=== PATIENT | female | born 1980 | race African-American/Black ===

== ENCOUNTER 2016-09-05 18:23 | Emergency (ER) | payer MEDICAID ==
[~2016-09-05] VITALS: Ht 167.6 cm; Wt 113.4 kg
[~2016-09-05 18:23] MED LIST: ACETAMINOPHEN-1 EAC1 ORAL; ALBUTEROL SULF8.5 GM INH; ALUM-MAG HYDRO360 ML PO; AMLODIPINE BESY10 MG PO; AMOXICILLIN500 MG ORAL; AMOXICILLIN500 MG PO; BACTRIM DS TAB1 EAC1 ORAL; BENAZEPRIL HCL40 MG PO; CIPRO500 MG PO; CIPROFLOXACIN500 M2 ORAL; CIPROFLOXACIN750 MG ORAL; CLOTRIMAZOLE15 GM TOP; CYCLOBENZAPRINE10 MG ORAL; DAILY VITAMIN1 EAC2 ORAL; DIFLUCAN150 MG PO; FLAGYL500 MG ORAL; FLAGYL500 MG PO; FLUCONAZOLE100 MG ORAL; HYDROCHLOROTHIA50 MG PO; HYDROCODON-ACE1 EA13 ORAL; HYDROCODON-ACE1 EA15 ORAL; IBUPROFEN600 MG ORAL; IBUPROFEN800 MG ORAL; KEFLEX500 MG ORAL; LORATADINE10 M1 PO; METFORMIN HCL500 MG PO; METROGEL-VAGINA70 G1 VG; NAPROSYN500 M1 ORAL; NITROFURANTOIN100 M2 ORAL; NKM; NORCO 5-325 TA1 EACH ORAL; PHENAZOPYRIDIN200 MG ORAL; PHENERGAN6.25 MG/5 PO; POTASSIUM CHLO10 MEQ PO; SIMVASTATIN20 MG PO; TRAMADOL HCL50 MG ORAL
[2016-09-05 18:34] VITALS: BP 129/90
--- NOTE | 2016-09-05 18:57 | Emergency Room Report ---
History of Present Illness General Chief Complaint: Pain Present Illness HPI 36-year-old female presents to emergency Department complaining of vaginal pain/ discomfort in addition to itching.x 1 week. Patient denies discharge, she reports mild external burning with urination. She also reports urinary frequency. She denies nausea, vomiting, fevers, chills or abdominal pain. Patient reports itchy rash on the bilateral wrists x2 weeks, and nasal congestion, rhinorrhea and cough x4 days. Patient has a history of diabetes and high cholesterol, and HTN. Denies CP, Palpitations, LOC, AMS, dizziness, Changes in Vision, Sensation, paresthesias, or a sudden severe headache. Allergies: Coded Allergies: No Known Allergies (Verified Allergy, Unknown, 04/10/07) Patient History Past Medical History: see triage record Past Surgical History: none Pertinent Family History: none Now: No Immunizations: UTD Reviewed Nursing Documentation: PMH: Agreed, PSxH: Agreed Nursing Documentation-PMH Hx Hypertension: Yes Hx Diabetes: Yes Review of Systems All Other Systems: negative except mentioned in HPI Physical Exam Vital Signs Date Time Temp Pulse Resp B/P Pulse Ox O2 Delivery O2 Flow Rate FiO2 09/05/16 18:27 98.1 95 20 133/90 96 Room Air Sp02 EP Interpretation: reviewed, normal General Appearance: no apparent distress, alert, GCS 15, non-toxic Head: normocephalic, atraumatic Eyes: bilateral eye PERRL, bilateral eye normal inspection ENT: hearing grossly normal, normal pharynx, no angioedema, normal voice, TMs + canals normal, moist mucus membranes, nasal congestion Neck: full range of motion, supple/symm/no masses Respiratory: chest non-tender, lungs clear, normal breath sounds, no rhonchi, no respiratory distress, no retraction, no accessory muscle use, no wheezing, speaking full sentences Cardiovascular #1: regular rate, rhythm, no edema Cardiovascular #2: 2+ radial (R), 2+ radial (L) Gastrointestinal: normal bowel sounds, non tender, soft, no guarding, no rebound Rectal: deferred Genitourinary: normal inspection, no CVA tenderness, adnexa normal, bladder normal, other - external vaginal irritation noted. White vaginal d/c noted. Musculoskeletal: back normal, gait/station normal, normal range of motion, non- tender, no calf tenderness Neurologic: alert, oriented x3, responsive, motor strength/tone normal, sensory intact, speech normal Psychiatric: judgement/insight normal, memory normal, mood/affect normal, no suicidal/homicidal ideation Skin: normal color, warm/dry, well hydrated, rash - linear lesions noted on the wrists bilaterally with obvious excoritations consistent with possible scabies. Lymphatic: no adenopathy Medical Decision Making PA Attestation Dr. kinney is my supervising Physician whom patient management has been discussed with. Diagnostic Impression: Primary Impression: Trichomonal vaginitis Additional Impression: UTI (urinary tract infection) Qualified Codes: N30.01 - Acute cystitis with hematuria ER Course Pt. presents to the ED c/o: 1) vaginal irritation/ discomfort that is burning in nature localized externally times one week. 2) itchy rash on the bilateral wrists x2 weeks. 3) cough, nasal congestion, rhinorrhea x4 days. Ddx considered but are not limited to UTi , Pyelo, STI, Stone, Cystitis, vaginal laceration, vaginitis, URI, pneumonia, bronchitis, , urticaria, eczema, dermatitis, infestation. Vital signs: are WNL, pt. is afebrile H& PE are most consistent with: Scabies and of the bilateral wrists, URI most likely viral in etiology, vaginitis, suspicious for possible UTI will r/o with UA. ORDERS: - UA labs are attached : bacteria present, Urinary Trichomonads, and hematuria consistent with UTI. ED INTERVENTIONS: None required at this time. DISCHARGE: At this time pt. is stable for d/c to home. Will provide printed patient care instructions, and any necessary prescriptions. Care plan and follow up instructions have been discussed with the patient prior to discharge. Labs Test 09/05/16 18:30 Urine Color Pale yellow Urine Appearance Slightly cloudy Urine pH 6 (4.5-8.0) Urine Specific [place] 1.005 (1.005-1.035) Urine Protein 2+ (NEGATIVE) Urine Glucose (UA) 4+ (NEGATIVE) Urine Ketones Negative (NEGATIVE) Urine Occult Blood 2+ (NEGATIVE) Urine Nitrite Negative (NEGATIVE) Urine Bilirubin Negative (NEGATIVE) Urine Urobilinogen Normal MG/DL (0.0-1.0) Urine Leukocyte Esterase 3+ (NEGATIVE) Urine RBC 2-4 /HPF (0 - 2) Urine WBC 20-30 /HPF (0 - 2) Urine Squamous Epithelial Cells Few /LPF (NONE/OCC) Urine Bacteria Few /HPF (NONE) Urine Trichomonas Occasional /HPF (NONE) Last Vital Signs Date Time Temp Pulse Resp B/P Pulse Ox O2 Delivery O2 Flow Rate FiO2 09/05/16 18:34 98.1 78 20 129/90 96 Room Air Disposition: HOME, SELF-CARE Condition: Stable Scripts Permethrin* (ELIMITE*) 60 Gm Cream..g. 1 APPLIC TOPIC ONCE, #60 GM 0 Refills Apply cream from head to toe; leave on for 8-14 hours before washing off with water; may reapply in 1 week if live mites appear. Prov: Chelsea Morales 09/05/16 D-Methorphan Hb/Prometh Hcl* (PROMETHAZINE-DM SYRUP*) 118 Ml Syrup 5 ML ORAL Q6H Y for For Cough, #118 ML 0 Refills Prov: Chelsea Morales 09/05/16 Fluconazole (DIFLUCAN) 150 Mg Tablet 150 MG PO DAILY, #3 TAB Prov: Chelsea Morales 09/05/16 Nitrofurantoin Monohyd/M-Cryst* (MACROBID 100 MG*) 100 Mg Capsule 100 MG ORAL EVERY 12 HOURS for 7 Days, #14 CAP Prov: Chelsea Morales 09/05/16 Metronidazole* (FLAGYL*) 500 Mg Tablet 500 MG ORAL BID for 7 Days, #14 TAB 0 Refills Prov: Chelsea Morales 09/05/16 Patient Instructions: Scabies, Pediatric, Upper Respiratory Infection, Adult, [id number], Vaginitis Additional Instructions: Take medications as directed. Follow up with PCP in 3-5 days Return sooner to ED if new symptoms occur, or current symptoms become worse. Chelsea Morales Sep 05, 2016 18:57
[2016-09-05 19:23] LABS: APPEARANCE,URINE SLIGHTLY CLOUDY; KETONES,URINE NEGATIVE (NEGATIVE); LEUKOCYTE ESTERASE ,URINE 3+ (NEGATIVE); NITRITE,URINE NEGATIVE (NEGATIVE); PH,URINE 6 (4.5-8.0); PROTEIN,URINE 2+ (NEGATIVE); UROBILINOGEN,URINE NORMAL MG/DL (0.0-1.0)
[2016-09-05 19:32] LABS: WBC,URINE 20-30 /HPF (0 - 2)
[2016-09-05 19:33] LABS: BACTERIA,URINE FEW /HPF; SQUAMOUS EPITHELIAL CELL,UR FEW /LPF (NONE/OCC)
[2016-09-05 19:34] LABS: TRICHOMONAS,URINE OCCASIONAL /HPF
[2016-09-05] MEDS ORDERED: PROMETHAZINE-D118 ML ORAL (19:48)
[2016-09-05] MEDS ORDERED: METRONIDAZOLE500 MG ORAL (19:48)
[2016-09-05] MEDS ORDERED: DIFLUCAN150 MG PO (19:48)
[2016-09-05] MEDS ORDERED: NITROFURANTOIN100 M2 ORAL (19:48)
[2016-09-05] MEDS ORDERED: PERMETHRIN60 GM TOPIC (19:49)
[2016-09-05 19:55] VITALS: BP 125/83
[2016-09-05 19:56] VITALS: BP 129/90
== END 2016-09-05 19:56 | disposition home or self-care (01) ==
LOC: EMR 19:04
DX: A59.01 Trichomonal vulvovaginitis (principal); N39.0 Urinary tract infection, site not specified; R21 Rash and other nonspecific skin eruption; R05 Cough; R09.81 Nasal congestion; J34.89 Other specified disorders of nose and nasal sinuses; E11.9 Type 2 diabetes mellitus without complications; I10 Essential (primary) hypertension
CPT/HCPCS: 81003; 87086; 99284

== ENCOUNTER 2016-10-17 17:21 | Emergency (ER) | payer MEDICAID ==
[~2016-10-17] VITALS: Ht 165.1 cm; Wt 124.7 kg
[~2016-10-17 17:21] MED LIST changes: +METRONIDAZOLE500 MG ORAL; +PERMETHRIN60 GM TOPIC; +PROMETHAZINE-D118 ML ORAL
[2016-10-17 17:50] VITALS: BP 141/87
--- NOTE | 2016-10-17 18:49 | Emergency Room Report ---
History of Present Illness General Chief Complaint: Female Urogenital Problems Source: Patient Present Illness HPI 36-year-old female presents to the emergency department complaining of dysuria and vaginal dryness and itching x3 weeks. Patient denies discharge. Patient denies recent unprotected intercourse or recent antibiotic use. Patient denies nausea, vomiting, fevers, chills or . Patient also reports new onset of profuse diarrhea times one day and mild cramping. Patient denies abdominal tenderness . Reports cramping prior to watery bowel movements . Denies recent travel or ill contacts . Denies CP, Palpitations, LOC, AMS, dizziness, Changes in Vision, Sensation, paresthesias, or a sudden severe headache. Allergies: Coded Allergies: No Known Allergies (Verified Allergy, Unknown, 04/10/07) Patient History Past Medical History: see triage record Past Surgical History: none Pertinent Family History: none Last Menstrual Period: 09/02/16 Now: No Immunizations: UTD Reviewed Nursing Documentation: PMH: Agreed, PSxH: Agreed Nursing Documentation-PMH Past Medical History: No History, Except For Hx Hypertension: Yes Hx Diabetes: Yes Review of Systems All Other Systems: negative except mentioned in HPI Physical Exam Vital Signs Date Time Temp Pulse Resp B/P Pulse Ox O2 Delivery O2 Flow Rate FiO2 10/17/16 17:44 97.9 90 16 144/85 97 Room Air Sp02 EP Interpretation: reviewed, normal General Appearance: no apparent distress, alert, GCS 15, non-toxic, obese Head: normocephalic, atraumatic Eyes: bilateral eye PERRL, bilateral eye normal inspection ENT: hearing grossly normal, normal pharynx, no angioedema, normal voice Neck: full range of motion, supple/symm/no masses Respiratory: chest non-tender, lungs clear, normal breath sounds, speaking full sentences Cardiovascular #1: regular rate, rhythm, no edema Gastrointestinal: normal bowel sounds, non tender, soft, no guarding, no rebound, other - Negative [place] signs, Negative MacBurney's sign, Negative Rosvigns Sign, Negative Psoas, No Peritoneal signs. hyperactive BS in all 4 quadrants. Rectal: deferred Genitourinary: normal inspection, no CVA tenderness, adnexa normal, other - external labia are swollen and irritated in appearance mild macerated/erythema noted, no crusting. no d/c noted. Musculoskeletal: back normal, gait/station normal, normal range of motion, non- tender, no calf tenderness Neurologic: alert, oriented x3, responsive, motor strength/tone normal, sensory intact, speech normal Psychiatric: judgement/insight normal, memory normal, mood/affect normal, no suicidal/homicidal ideation Skin: normal color, no rash, warm/dry, well hydrated Lymphatic: no adenopathy Medical Decision Making PA Attestation Dr. Mendosa is my supervising Physician whom patient management has been discussed with. Diagnostic Impression: Primary Impression: Vaginitis Qualified Codes: N76.0 - Acute vaginitis Additional Impression: Enteritis ER Course 36-year-old female presents to the emergency department complaining of dysuria and vaginal dryness and itching x3 weeks. Patient denies discharge. Patient denies recent unprotected intercourse or recent antibiotic use. Patient denies nausea, vomiting, fevers, chills or . Patient also reports new onset of profuse diarrhea times one day and mild cramping. Patient denies abdominal tenderness Ddx considered but are not limited to UTi , Pyelo, STI, Stone, Cystitis, GE, colitis Vital signs: are WNL, pt. is afebrile H&PE are most consistent with UTI , and vaginitis, pt also has diarrhea, no abdominal TTP no evidence to suggest acute intra-abdominal process at this time. ORDERS: - UA labs are attached ED INTERVENTIONS: - Bentyl PO DISCHARGE: At this time pt. is stable for d/c to home. Will provide printed patient care instructions, and any necessary prescriptions. Care plan and follow up instructions have been discussed with the patient prior to discharge. Labs Test 10/17/16 18:28 Urine Color Pale yellow Urine Appearance Clear Urine pH 5 (4.5-8.0) Urine Specific [place] 1.015 (1.005-1.035) Urine Protein 3+ (NEGATIVE) Urine Glucose (UA) 4+ (NEGATIVE) Urine Ketones 1+ (NEGATIVE) Urine Occult Blood 3+ (NEGATIVE) Urine Nitrite Negative (NEGATIVE) Urine Bilirubin Negative (NEGATIVE) Urine Urobilinogen Normal MG/DL (0.0-1.0) Urine Leukocyte Esterase Negative (NEGATIVE) Urine RBC 2-4 /HPF (0 - 2) Urine WBC 2-4 /HPF (0 - 2) Urine Squamous Epithelial Cells Moderate /LPF (NONE/OCC) Urine Bacteria Few /HPF (NONE) Last Vital Signs Date Time Temp Pulse Resp B/P Pulse Ox O2 Delivery O2 Flow Rate FiO2 10/17/16 17:50 97.8 87 15 141/87 98 Room Air Disposition: HOME, SELF-CARE Condition: Stable Scripts Dicyclomine Hcl* (BENTYL*) 10 Mg Capsule 10 MG ORAL FOUR TIMES A DAY, #20 CAP Prov: Chelsea Morales 10/17/16 Fluconazole (DIFLUCAN) 150 Mg Tablet 150 MG PO DAILY for 3 Days, #3 TAB Prov: Chelsea Morales 10/17/16 Phenazopyridine Hcl* (PYRIDIUM*) 200 Mg Tablet 200 MG ORAL THREE TIMES A DAY for 3 Days, #9 TAB 0 Refills Prov: Chelsea Morales 10/17/16 Patient Instructions: Diarrhea, Adult, [id number], Vaginal Yeast Infection, Adult, Vaginitis Additional Instructions: Take medications as directed. Follow up with PCP in 3-5 days Return sooner to ED if new symptoms occur, or current symptoms become worse. - Please note that this Emergency Department Report was dictated using [employer] service lead technology software, occasionally this can lead to erroneous entry secondary to interpretation by the dictation equipment. Chelsea Morales Oct 17, 2016 18:49
[2016-10-17 19:15] LABS: APPEARANCE,URINE CLEAR; KETONES,URINE 1+ (NEGATIVE); LEUKOCYTE ESTERASE ,URINE NEGATIVE (NEGATIVE); NITRITE,URINE NEGATIVE (NEGATIVE); PH,URINE 5 (4.5-8.0); PROTEIN,URINE 3+ (NEGATIVE); UROBILINOGEN,URINE NORMAL MG/DL (0.0-1.0)
[2016-10-17] MEDS ORDERED: Dicyclomine HCl 10mg/5ml oral soln ORAL ONE (19:15)
[2016-10-17 19:23] LABS: BACTERIA,URINE FEW /HPF; SQUAMOUS EPITHELIAL CELL,UR MODERATE /LPF (NONE/OCC)
[2016-10-17] MEDS ORDERED: DIFLUCAN150 MG PO (19:31)
[2016-10-17] MEDS ORDERED: PHENAZOPYRIDIN200 MG ORAL (19:31)
[2016-10-17] MEDS ORDERED: BENTYL10 MG ORAL (19:31)
[2016-10-17 20:01] VITALS: BP 145/93
[2016-10-17 20:02] VITALS: BP 141/87
== END 2016-10-17 20:03 | disposition home or self-care (01) ==
LOC: EMR 18:25
DX: N76.0 Acute vaginitis (principal); K52.9 Noninfective gastroenteritis and colitis, unspecified; I10 Essential (primary) hypertension; E11.9 Type 2 diabetes mellitus without complications
CPT/HCPCS: 81003; 99284

== ENCOUNTER 2016-11-19 13:47 | Emergency (ER) | payer MEDICAID ==
[~2016-11-19] VITALS: Ht 167.6 cm; Wt 127.0 kg
[~2016-11-19 13:47] MED LIST changes: +BENTYL10 MG ORAL
[2016-11-19] MEDS ORDERED: Nitroglycerin Subl 0.4mg tab (Bottle Of 25) SL PRN (14:30)
[2016-11-19 15:04] LABS: BASOPHILS % (AUTO) 0.8 % (0.0-2.0); EOSINOPHILS % (AUTO) 2.8 % (0.0-3.0); LYMPHOCYTES % (AUTO) 32.1 % (20.0-45.0); MEAN CORPUSCULAR HEMOGLOBIN 28.9 PG (27.0-31.0); MEAN CORPUSCULAR HGB CONC 33.6 G/DL (32.0-36.0); MEAN CORPUSCULAR VOLUME 86 FL (80-99); MEAN PLATELET VOLUME 6.2 FL (6.5-10.1); MONOCYTES % (AUTO) 5.6 % (1.0-10.0); NEUTROPHILS % (AUTO) 58.6 % (45.0-75.0); PLATELET COUNT 383 K/UL (150-450); RED BLOOD COUNT 4.59 M/UL (4.20-5.40); RED CELL DISTRIBUTION WIDTH 12.5 % (11.6-14.8)
[2016-11-19 15:06] LABS: APPEARANCE,URINE CLEAR; KETONES,URINE NEGATIVE (NEGATIVE); LEUKOCYTE ESTERASE ,URINE 1+ (NEGATIVE); NITRITE,URINE NEGATIVE (NEGATIVE); PH,URINE 6 (4.5-8.0); PROTEIN,URINE 2+ (NEGATIVE); UROBILINOGEN,URINE NORMAL MG/DL (0.0-1.0)
[2016-11-19 15:10] VITALS: BP 116/73
[2016-11-19 15:14] LABS: BACTERIA,URINE FEW /HPF; SQUAMOUS EPITHELIAL CELL,UR FEW /LPF (NONE/OCC)
[2016-11-19 15:33] LABS: TROPONIN I < 0.30 ng/mL (<=0.30)
[2016-11-19 15:35] LABS: ALANINE AMINOTRANSFERASE 21 U/L (3-33); ANION GAP 16 (5-15); ASPARTATE AMINO TRANSFERASE 18 U/L (5-40); CALCIUM 9.4 mg/dL (8.6-10.2); CARBON DIOXIDE 26 mEQ/L (20-30); CHLORIDE 94 mEQ/L (98-107); CREATININE 0.8 mg/dL (0.5-0.9); GLOMERULAR FILTRATION RATE > 60 mL/min (>60); HEMOLYSIS 33; SODIUM 136 mEQ/L (135-145); TOTAL PROTEIN 7.5 g/dL (6.6-8.7)
[2016-11-19 15:45] LABS: CKMB 2.2 ng/mL (< 3.8)
[2016-11-19 16:20] VITALS: BP 119/76
--- NOTE | 2016-11-19 18:59 | Emergency Room Report ---
History of Present Illness General Chief Complaint: Chest Pain Source: Patient Present Illness HPI 36-year-old female presents ED for evaluation. Patient states his last night she's been having chest pain. Pain is sharp. Midsternal. 7/10. Nonradiating. No other aggravating or relieving factors. Denies shortness of breath. Notes a cough. Dry. No fevers or chills. Denies any other associated symptoms Allergies: Coded Allergies: No Known Allergies (Verified Allergy, Unknown, 04/10/07) Patient History Past Medical History: DM, HTN Past Surgical History: none Pertinent Family History: none Social History: Denies: alcohol use, drug use, smoking Last Menstrual Period: last week Now: No Immunizations: UTD Reviewed Nursing Documentation: PMH: Agreed, PSxH: Agreed Nursing Documentation-PMH Past Medical History: No History, Except For Hx Hypertension: Yes Hx Diabetes: Yes Review of Systems All Other Systems: negative except mentioned in HPI Physical Exam Vital Signs Date Time Temp Pulse Resp B/P Pulse Ox O2 Delivery O2 Flow Rate FiO2 11/19/16 13:54 97.5 81 22 137/84 96 Room Air Sp02 EP Interpretation: reviewed, normal General Appearance: no apparent distress, alert, GCS 15, non-toxic, obese Head: normocephalic, atraumatic Eyes: bilateral eye PERRL, bilateral eye normal inspection ENT: hearing grossly normal, normal pharynx, no angioedema, normal voice Neck: full range of motion, supple/symm/no masses Respiratory: chest non-tender, lungs clear, normal breath sounds, speaking full sentences Cardiovascular #1: regular rate, rhythm, no edema Cardiovascular #2: 2+ carotid (R), 2+ carotid (L), 2+ radial (R), 2+ radial (L) , 2+ dorsalis pedis (R), 2+ dorsalis pedis (L) Gastrointestinal: normal bowel sounds, non tender, soft, non-distended, no guarding, no rebound Rectal: deferred Genitourinary: normal inspection, no CVA tenderness Musculoskeletal: back normal, gait/station normal, normal range of motion, non- tender Neurologic: alert, oriented x3, responsive, motor strength/tone normal, sensory intact, speech normal Psychiatric: judgement/insight normal, memory normal, mood/affect normal, no suicidal/homicidal ideation Reflexes: 3+ bicep (R), 3+ bicep (L), 3+ tricep (R), 3+ tricep (L), 3+ knee (R) , 3+ knee (L) Skin: normal color, no rash, warm/dry, well hydrated Lymphatic: no adenopathy Medical Decision Making Diagnostic Impression: Primary Impression: Chest pain Qualified Codes: R07.9 - Chest pain, unspecified ER Course Hospital Course 36-year-old F presents ED complaining of chest pain Differential diagnoses include: Rib fracture, NM/unstable angina, contusion, muscle strain Clinical course Patient placed on stretcher. After initial history and physical I ordered labs , EKG, chest x-ray. labs reviewed- all electrolytes normal, troponins negative, no leukocytosis, hemoglobin/hematocrit stable Chest x-ray-no cardiomegaly, no rib fracture, no pneumothorax, no acute process per HEART score, patient is at low risk for acute event. Given the pain is constant and started last night with negative troponin I believe patient can be discharged. Patient has outpatient appointment with cardiology in 3 days I. I feel this is a highly complex case requiring extensive working including EKG/Rhythm strip, Xray/CT/US, Blood/urine lab work, repeat exams while in ED, and administration of strong opiates/narcotics for pain control, admission to hospital or close patient follow up. Diagnosis - chest pain Stable and discharged to home. Instructed to followup with PMD. Return to ED if symptoms recur or worsen Labs Test 11/19/16 14:40 11/19/16 14:50 Urine Color Pale yellow Urine Appearance Clear Urine pH 6 (4.5-8.0) Urine Specific [place] 1.005 (1.005-1.035) Urine Protein 2+ (NEGATIVE) Urine Glucose (UA) 4+ (NEGATIVE) Urine Ketones Negative (NEGATIVE) Urine Occult Blood 1+ (NEGATIVE) Urine Nitrite Negative (NEGATIVE) Urine Bilirubin Negative (NEGATIVE) Urine Urobilinogen Normal MG/DL (0.0-1.0) Urine Leukocyte Esterase 1+ (NEGATIVE) Urine RBC 2-4 /HPF (0 - 2) Urine WBC 5-10 /HPF (0 - 2) Urine Squamous Epithelial Cells Few /LPF (NONE/OCC) Urine Bacteria Few /HPF (NONE) Urine HCG, Qualitative Negative White Blood Count 10.0 K/UL (4.8-10.8) Red Blood Count 4.59 M/UL (4.20-5.40) Hemoglobin 13.3 G/DL (12.0-16.0) Hematocrit 39.5 % (37.0-47.0) Mean Corpuscular Volume 86 FL (80-99) Mean Corpuscular Hemoglobin 28.9 PG (27.0-31.0) Mean Corpuscular Hemoglobin Concent 33.6 G/DL (32.0-36.0) Red Cell Distribution Width 12.5 % (11.6-14.8) Platelet Count 383 K/UL (150-450) Mean Platelet Volume 6.2 FL (6.5-10.1) Neutrophils (%) (Auto) 58.6 % (45.0-75.0) Lymphocytes (%) (Auto) 32.1 % (20.0-45.0) Monocytes (%) (Auto) 5.6 % (1.0-10.0) Eosinophils (%) (Auto) 2.8 % (0.0-3.0) Basophils (%) (Auto) 0.8 % (0.0-2.0) Sodium Level 136 mEQ/L (135-145) Potassium Level 4.0 mEQ/L (3.4-4.9) Chloride Level 94 mEQ/L (98-107) Carbon Dioxide Level 26 mEQ/L (20-30) Anion Gap 16 (5-15) Blood Urea Nitrogen 11 mg/dL (7-23) Creatinine 0.8 mg/dL (0.5-0.9) Estimat Glomerular Filtration Rate > 60 mL/min (>60) Glucose Level 404 mg/dL (74-106) Calcium Level 9.4 mg/dL (8.6-10.2) Total Bilirubin 0.2 mg/dL (0.0-1.2) Aspartate Amino Transf (AST/SGOT) 18 U/L (5-40) Alanine Aminotransferase (ALT/SGPT) 21 U/L (3-33) Alkaline Phosphatase 88 U/L (35-104) Total Creatine Kinase 177 U/L (26-140) Creatine Kinase MB 2.2 ng/mL (< 3.8) Creatine Kinase MB Relative Index 1.2 Troponin I < 0.30 ng/mL (<=0.30) Pro-B-Type Natriuretic Peptide 48 pg/mL (0-125) Total Protein 7.5 g/dL (6.6-8.7) Albumin 3.8 g/dL (3.5-5.2) Globulin 3.7 g/dL Albumin/Globulin Ratio 1.0 (1.0-2.7) EKG Diagnostic Results Rate: normal Rhythm: NSR ST Segments: no acute changes ASA given to the pt in ED: No Rhythm Strip Diag. Results EP Interpretation: yes Rhythm: NSR, no PVC's, no ectopy Chest X-Ray Diagnostic Results EP Interpretation: No Findings: no consolidation, no effusion, no pneumothorax, no acute cardiopulmonary disease Number of Views: 1 Last Vital Signs Date Time Temp Pulse Resp B/P Pulse Ox O2 Delivery O2 Flow Rate FiO2 11/19/16 16:30 97.5 81 22 119/76 95 Room Air Status: improved Disposition: HOME, SELF-CARE Condition: Stable Referrals: NON PHYSICIAN (PCP) Patient Instructions: Nonspecific Chest Pain MONY FORD M.D. Nov 19, 2016 18:59
--- NOTE | 2016-11-20 11:21 | Cardiology Report ---
APPROVED REPORT EKG Measurement Heart [id number] Normal sinus rhythm Nonspecific T wave abnormality Abnormal ECG
--- NOTE | 2016-12-10 14:46 | Diagnostic Imaging Report ---
Indication: Chest pain Technique: One view of the chest Comparison: 08/03/2014 Findings: Lungs and pleural spaces are clear. Heart size is normal. No significant change Impression: No acute process
== END 2016-11-19 16:30 | disposition home or self-care (01) ==
LOC: EMR 16:25
DX: R07.9 Chest pain, unspecified (principal); I10 Essential (primary) hypertension; E11.9 Type 2 diabetes mellitus without complications
CPT/HCPCS: 36415; 71010; 80053; 81003; 81025; 82550; 82553; 83880; 84484; 85025; 93005; 96360

== ENCOUNTER 2016-12-25 12:18 | Emergency (ER) | payer MEDICAID ==
[~2016-12-25] VITALS: Ht 165.1 cm; Wt 122.5 kg
[2016-12-25] MEDS ORDERED: IBUPROFEN600 MG ORAL (14:19)
--- NOTE | 2016-12-25 14:19 | Diagnostic Imaging Report ---
Indications: New onset nontraumatic right wrist pain Technique: 3 views of the right wrist. Findings: Comparison: None. No fracture, dislocation, lytic destruction, periosteal reaction, surrounding soft tissue swelling, or other acute changes are demonstrated. The ulna is approximately 1 cm shorter than the radius. No additional Deformity, alignment abnormality, arthritic change, soft tissue calcification, or other chronic changes are demonstrated. 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
[2016-12-25 14:34] VITALS: BP 138/72
--- NOTE | 2016-12-25 20:31 | Emergency Room Report ---
History of Present Illness General Chief Complaint: Pain Source: Patient Present Illness [facility] The patient is a 36 old female presenting for right wrist pain which began for no known reason. Pain is described as a 10 out of 10 dull ache to the right wrist and does not radiate. She denies any known recent or previous injury. Pain is worsened with movement and touch. Pain relieved with rest. She denies any increased use of the hand or wrist recently. She denies any other symptoms including numbness, tingling, rash, fever Allergies: Coded Allergies: No Known Allergies (Verified Allergy, Unknown, 04/10/07) Patient History Past Medical History: see triage record Pertinent Family History: none Reviewed Nursing Documentation: PMH: Agreed, PSxH: Agreed Nursing Documentation-PMH Past Medical History: No History, Except For Hx Hypertension: Yes Hx Diabetes: Yes Review of Systems All Other Systems: negative except mentioned in HPI Physical Exam Vital Signs Date Time Temp Pulse Resp B/P Pulse Ox O2 Delivery O2 Flow Rate FiO2 12/25/16 12:38 98.4 80 16 142/91 95 Room Air Sp02 EP Interpretation: reviewed, normal General Appearance: no apparent distress, alert, GCS 15, non-toxic Head: normocephalic, atraumatic Eyes: bilateral eye PERRL, bilateral eye normal inspection ENT: hearing grossly normal, normal pharynx, no angioedema, normal voice Neck: full range of motion, supple/symm/no masses Respiratory: chest non-tender, lungs clear, normal breath sounds, speaking full sentences Cardiovascular #1: regular rate, rhythm, no edema Musculoskeletal: back normal, gait/station normal, normal range of motion, tender - TTP over the mid R wrist dorsal surface Neurologic: alert, oriented x3, responsive, motor strength/tone normal, sensory intact, speech normal Psychiatric: judgement/insight normal, memory normal, mood/affect normal, no suicidal/homicidal ideation Reflexes: 3+ bicep (R), 3+ bicep (L), 3+ tricep (R), 3+ tricep (L), 3+ knee (R) , 3+ knee (L) Skin: normal color, no rash, warm/dry, well hydrated Lymphatic: no adenopathy Medical Decision Making PA Attestation Dr. Maldonado is my supervising physician. Patient management was discussed with my supervising physician Diagnostic Impression: Primary Impression: Wrist pain, acute Qualified Codes: M25.531 - Pain in right wrist ER Course The patient is a 36 old female presenting for right wrist pain which began for no known reason Ddx considered include but not limited to sprain/strain, fracture, contusion, cellulitis, insect bite PE:Afebrile. No apparent distress Right wrist: No edema. No discoloration. Full active range of motion. There is tenderness to palpation over the mid dorsal surface. No obvious deformity X-rays unremarkable The patient will be discharged home with pain medication. ER precautions are given. Patient continue to ice at home. Other X-Ray Diagnostic Results Other X-Ray Diagnostic Results : X-Ray Ordered: R wrist Date: Dec 25, 2016 EP Interpretation: Yes Findings: no fractures, no dislocation, no soft tissue swelling Number of Views: 3 PA Scribe Text I am acting as scribe for my supervising physician. My supervising physician's interpretation of the R wrist xrays are there are no fractures, dislocations or soft tissue swelling. Last Vital Signs Date Time Temp Pulse Resp B/P Pulse Ox O2 Delivery O2 Flow Rate FiO2 12/25/16 14:34 98.0 76 14 138/72 100 Room Air Disposition: HOME, SELF-CARE Condition: Improved Scripts Ibuprofen* (MOTRIN*) 600 Mg Tablet 600 MG ORAL Q8H Y for For Pain, #30 TAB 0 Refills Prov: MELY LIND 12/25/16 Patient Instructions: Wrist Pain Additional Instructions: I discussed my findings with the patient. All questions and concerns have been answered. Treatment and medication compliance have been addressed. I advised the patient that they need to follow up with PMD in 3-5 days. Return to ED if pain remains or worsens, numbness or tingling occurs, new rash is noticed, fever is noticed, or if needed for any reason. Patient verbalized understanding of discharge instructions. MELY LIND Dec 25, 2016 20:29
== END 2016-12-25 14:37 | disposition home or self-care (01) ==
LOC: EMR 13:10
DX: M25.531 Pain in right wrist (principal); I10 Essential (primary) hypertension; E11.9 Type 2 diabetes mellitus without complications
CPT/HCPCS: 99283

== ENCOUNTER 2017-01-21 23:03 | Emergency (ER) | payer MEDICAID ==
[~2017-01-21] VITALS: Ht 165.1 cm; Wt 117.9 kg
[2017-01-22 00:30] LABS: APPEARANCE,URINE CLEAR; KETONES,URINE NEGATIVE (NEGATIVE); LEUKOCYTE ESTERASE ,URINE 3+ (NEGATIVE); NITRITE,URINE NEGATIVE (NEGATIVE); PH,URINE 5 (4.5-8.0); PROTEIN,URINE 3+ (NEGATIVE); UROBILINOGEN,URINE NORMAL MG/DL (0.0-1.0)
[2017-01-22 00:52] LABS: BACTERIA,URINE FEW /HPF; SQUAMOUS EPITHELIAL CELL,UR MANY /LPF (NONE/OCC); WBC,URINE TNTC /HPF (0 - 2)
[2017-01-22] MEDS ORDERED: KEFLEX500 MG ORAL (01:38)
[2017-01-22] MEDS ORDERED: PHENAZOPYRIDIN100 MG ORAL (01:38)
[2017-01-22 01:40] VITALS: BP 124/83
[2017-01-22 01:45] VITALS: BP 124/83
--- NOTE | 2017-01-23 07:12 | Emergency Room Report ---
History of Present Illness General Chief Complaint: Female Urogenital Problems Source: Patient Present Illness HPI 36-year-old female presents to ER for evaluation. States she's been complaining of dysuria and frequent urination x1 day. Notes prior history of UTI. Denies any flank pain. Denies any fevers or chills. Denies nausea or vomiting. Pain is burning, 7/10, nonradiating. Denies vaginal bleeding or discharge. No aggravating relieving factors. Denies any other associated symptoms Allergies: Coded Allergies: No Known Allergies (Verified Allergy, Unknown, 04/10/07) Patient History Past Medical History: DM, HTN Past Surgical History: none Pertinent Family History: none Social History: Denies: alcohol use, drug use, smoking Last Menstrual Period: last month Now: No Immunizations: UTD Reviewed Nursing Documentation: PMH: Agreed, PSxH: Agreed Nursing Documentation-PMH Hx Hypertension: Yes Hx Diabetes: Yes Review of Systems All Other Systems: negative except mentioned in HPI Physical Exam Vital Signs Date Time Temp Pulse Resp B/P Pulse Ox O2 Delivery O2 Flow Rate FiO2 01/21/17 23:21 97.9 73 16 124/91 97 Room Air Sp02 EP Interpretation: reviewed, normal General Appearance: no apparent distress, alert, GCS 15, non-toxic, obese Head: normocephalic, atraumatic Eyes: bilateral eye PERRL, bilateral eye normal inspection ENT: hearing grossly normal, normal pharynx, no angioedema, normal voice Neck: full range of motion, supple/symm/no masses Respiratory: chest non-tender, lungs clear, normal breath sounds, speaking full sentences Cardiovascular #1: regular rate, rhythm, no edema Cardiovascular #2: 2+ carotid (R), 2+ carotid (L), 2+ radial (R), 2+ radial (L) , 2+ dorsalis pedis (R), 2+ dorsalis pedis (L) Gastrointestinal: normal bowel sounds, non tender, soft, non-distended, no guarding, no rebound Rectal: deferred Genitourinary: normal inspection, no CVA tenderness Musculoskeletal: back normal, gait/station normal, normal range of motion, non- tender Neurologic: alert, oriented x3, responsive, motor strength/tone normal, sensory intact, speech normal Psychiatric: judgement/insight normal, memory normal, mood/affect normal, no suicidal/homicidal ideation Reflexes: 3+ bicep (R), 3+ bicep (L), 3+ tricep (R), 3+ tricep (L), 3+ knee (R) , 3+ knee (L) Skin: normal color, no rash, warm/dry, well hydrated Lymphatic: no adenopathy Medical Decision Making Diagnostic Impression: Primary Impression: UTI (urinary tract infection) Qualified Codes: N39.0 - Urinary tract infection, site not specified ER Course Hospital Course 36-year-old female presents to ED complaining of dysuria with suprapubic pain. Differential diagnoses include: UTI, cystitis, pyelonephritis Clinical course Patient placed on stretcher. After initial history and physical I ordered UA, urine . UA + bacteria Diagnosis - UTI Stable and discharged home with prescriptions for Rx Keflex, Pyridium. Instructed to followup with PMD. Return to ED if symptoms recur or worsen Labs Test 01/21/17 23:59 Urine Color Pale yellow Urine Appearance Clear Urine pH 5 (4.5-8.0) Urine Specific [place] 1.015 (1.005-1.035) Urine Protein 3+ (NEGATIVE) Urine Glucose (UA) 4+ (NEGATIVE) Urine Ketones Negative (NEGATIVE) Urine Occult Blood 2+ (NEGATIVE) Urine Nitrite Negative (NEGATIVE) Urine Bilirubin Negative (NEGATIVE) Urine Urobilinogen Normal MG/DL (0.0-1.0) Urine Leukocyte Esterase 3+ (NEGATIVE) Urine RBC 2-4 /HPF (0 - 2) Urine WBC Tntc /HPF (0 - 2) Urine Squamous Epithelial Cells Many /LPF (NONE/OCC) Urine Bacteria Few /HPF (NONE) Urine HCG, Qualitative Negative Last Vital Signs Date Time Temp Pulse Resp B/P Pulse Ox O2 Delivery O2 Flow Rate FiO2 01/22/17 01:45 97.9 97 16 124/83 97 Room Air Status: improved Disposition: HOME, SELF-CARE Condition: Stable Scripts Phenazopyridine Hcl* (PYRIDIUM*) 100 Mg Tablet 100 MG ORAL THREE TIMES A DAY for 3 Days, TAB Prov: MONY FORD M.D. 01/22/17 Cephalexin* (KEFLEX*) 500 Mg Capsule 500 MG ORAL Q6H, #28 CAP 0 Refills Prov: MONY FORD M.D. 01/22/17 Referrals: HUANG DE LUNA,REFERRING (PCP) Patient Instructions: Urinary Tract Infection MONY FORD M.D. January 23, 2017 07:12
== END 2017-01-22 01:45 | disposition home or self-care (01) ==
LOC: EMR 23:40
DX: N39.0 Urinary tract infection, site not specified (principal); E11.9 Type 2 diabetes mellitus without complications; I10 Essential (primary) hypertension
CPT/HCPCS: 81003; 81025; 87086; 99284

== ENCOUNTER 2017-02-28 13:52 | Emergency (ER) | payer MEDICAID ==
[~2017-02-28] VITALS: Ht 167.6 cm; Wt 122.5 kg
[~2017-02-28 13:52] MED LIST changes: +PHENAZOPYRIDIN100 MG ORAL
[2017-02-28 14:27] VITALS: BP 146/85
--- NOTE | 2017-02-28 14:53 | Emergency Room Report ---
History of Present Illness General Chief Complaint: Female Urogenital Problems Source: Patient, Medical Record Present Illness HPI 37 YO Female presents to the emergency department complaining of vaginal irritation with thick white discharge. Patient denies pain. Patient states that she was recently prescribed Diflucan and states that her symptoms temporarily improved only minimally and then returned. Patient reports frequency she denies dysuria, hematuria or recent unprotected intercourse. Patient denies . Patient denies rashes elsewhere, joint pain or tender palpable no lymph nodes. Night abdominal pain, nausea, vomiting. Denies CP, Palpitations, LOC, AMS, dizziness, Changes in Vision, Sensation, paresthesias, or a sudden severe headache. Allergies: Coded Allergies: No Known Allergies (Verified Allergy, Unknown, 04/10/07) Patient History Past Medical History: see triage record Past Surgical History: none Pertinent Family History: none Last Menstrual Period: 12/31/16 Now: No Immunizations: UTD Reviewed Nursing Documentation: PMH: Agreed, PSxH: Agreed Nursing Documentation-PMH Past Medical History: No History, Except For Hx Hypertension: Yes Hx Diabetes: Yes Review of Systems All Other Systems: negative except mentioned in HPI Physical Exam Vital Signs Date Time Temp Pulse Resp B/P Pulse Ox O2 Delivery O2 Flow Rate FiO2 02/28/17 14:27 97.9 76 18 146/85 100 Room Air Sp02 EP Interpretation: reviewed, normal General Appearance: no apparent distress, alert, GCS 15, non-toxic Head: normocephalic, atraumatic Eyes: bilateral eye PERRL, bilateral eye normal inspection ENT: hearing grossly normal, normal pharynx, no angioedema, normal voice Neck: full range of motion, supple/symm/no masses Respiratory: lungs clear, normal breath sounds, speaking full sentences Cardiovascular #1: regular rate, rhythm Gastrointestinal: normal bowel sounds, non tender, soft, no guarding, no rebound Rectal: deferred Genitourinary: normal inspection, no CVA tenderness Musculoskeletal: back normal, gait/station normal, normal range of motion, non- tender, no calf tenderness Neurologic: alert, oriented x3, responsive, motor strength/tone normal, sensory intact, normal gait, speech normal Psychiatric: judgement/insight normal, memory normal, mood/affect normal Skin: normal color, no rash, warm/dry, well hydrated Medical Decision Making PA Attestation Dr. Edward is my supervising Physician whom patient management has been discussed with. Diagnostic Impression: Primary Impression: Vaginitis Qualified Codes: N76.0 - Acute vaginitis ER Course 37 YO Female presents to the emergency department complaining of vaginal irritation with thick white discharge after recent abx treatment for UTI Patient denies pain. Patient states that she was recently prescribed Diflucan and states that her symptoms temporarily improved only minimally and then returned. Patient reports frequency she denies dysuria, hematuria or recent unprotected intercourse. Patient denies . Patient denies rashes elsewhere, joint pain or tender palpable no lymph nodes. Night abdominal pain, nausea, vomiting. Denies CP, Palpitations, LOC, AMS, dizziness, Changes in Vision, Sensation, paresthesias, or a sudden severe headache. Ddx considered but are not limited to UTi , Pyelo, STI, Stone, Cystitis, vaginal laceration, vaginitis. Vital signs: are WNL, pt. is afebrile H& PE are most consistent with: yeast vaginitis secondary to recent uti tx. ORDERS: - UA labs are attached: no evidence of infection ED INTERVENTIONS: - Diflucan PO DISCHARGE: At this time pt. is stable for d/c to home. Will provide printed patient care instructions, and any necessary prescriptions. Care plan and follow up instructions have been discussed with the patient prior to discharge. Labs Test 02/28/17 14:38 Urine Color Pale yellow Urine Appearance Clear Urine pH 5 (4.5-8.0) Urine Specific [place] 1.015 (1.005-1.035) Urine Protein 3+ (NEGATIVE) Urine Glucose (UA) 4+ (NEGATIVE) Urine Ketones Negative (NEGATIVE) Urine Occult Blood 2+ (NEGATIVE) Urine Nitrite Negative (NEGATIVE) Urine Bilirubin Negative (NEGATIVE) Urine Urobilinogen Normal MG/DL (0.0-1.0) Urine Leukocyte Esterase 1+ (NEGATIVE) Urine RBC 2-4 /HPF (0 - 2) Urine WBC 2-4 /HPF (0 - 2) Urine Squamous Epithelial Cells Few /LPF (NONE/OCC) Urine Bacteria Few /HPF (NONE) Last Vital Signs Date Time Temp Pulse Resp B/P Pulse Ox O2 Delivery O2 Flow Rate FiO2 02/28/17 14:27 97.9 76 18 146/85 100 Room Air Disposition: HOME, SELF-CARE Condition: Stable Scripts Fluconazole (DIFLUCAN) 150 Mg Tablet 150 MG PO DAILY for 3 Days, TAB Prov: Chelsea Morales 02/28/17 Patient Instructions: Vaginitis Additional Instructions: Take medications as directed. Follow up with PCP in 3-5 days Return sooner to ED if new symptoms occur, or current symptoms become worse. - Please note that this Emergency Department Report was dictated using [employer] worker technology software, occasionally this can lead to erroneous entry secondary to interpretation by the dictation equipment. Chelsea Morales. Feb 28, 2017 14:53
[2017-02-28 14:55] LABS: APPEARANCE,URINE CLEAR; KETONES,URINE NEGATIVE (NEGATIVE); LEUKOCYTE ESTERASE ,URINE 1+ (NEGATIVE); NITRITE,URINE NEGATIVE (NEGATIVE); PH,URINE 5 (4.5-8.0); PROTEIN,URINE 3+ (NEGATIVE); UROBILINOGEN,URINE NORMAL MG/DL (0.0-1.0)
[2017-02-28] MEDS ORDERED: Fluconazole 100mg tab ORAL ONE (15:00)
[2017-02-28 15:04] LABS: BACTERIA,URINE FEW /HPF; SQUAMOUS EPITHELIAL CELL,UR FEW /LPF (NONE/OCC)
[2017-02-28] MEDS ORDERED: DIFLUCAN150 MG PO (15:25)
[2017-02-28 15:50] VITALS: BP 162/114
== END 2017-02-28 15:50 | disposition home or self-care (01) ==
LOC: EMR 15:14
DX: N76.0 Acute vaginitis (principal); E11.9 Type 2 diabetes mellitus without complications; I10 Essential (primary) hypertension
CPT/HCPCS: 81003; 99283

== ENCOUNTER 2017-05-21 21:02 | Emergency (ER) | payer MEDICAID ==
[~2017-05-21] VITALS: Ht 167.6 cm; Wt 120.2 kg
[2017-05-21 21:30] LABS: KETONES,URINE NEGATIVE (NEGATIVE); LEUKOCYTE ESTERASE ,URINE 3+ (NEGATIVE); NITRITE,URINE NEGATIVE (NEGATIVE); PH,URINE 5 (4.5-8.0); PROTEIN,URINE 3+ (NEGATIVE); UROBILINOGEN,URINE NORMAL MG/DL (0.0-1.0)
[2017-05-21 21:32] LABS: APPEARANCE,URINE SLIGHTLY CLOUDY
[2017-05-21 21:39] LABS: BACTERIA,URINE MODERATE /HPF; SQUAMOUS EPITHELIAL CELL,UR FEW /LPF (NONE/OCC)
[2017-05-21 21:40] LABS: AMORPHOUS SEDIMENT,UR FEW /LPF
[2017-05-21] MEDS ORDERED: KEFLEX500 MG ORAL (21:56)
[2017-05-21 22:21] VITALS: BP 137/90
--- NOTE | 2017-05-22 00:54 | Emergency Room Report ---
History of Present Illness General Chief Complaint: Vaginal Source: Patient Present Illness HPI 37-year-old female history of diabetes, presenting with vaginal discomfort/ dysuria for one week. Patient states that she has mild itching and dryness to area, and slight burning with urination. No fever chills abdominal pain or hematuria. No recent antibiotic use. Has not been sexually active, denies any abnormal vaginal discharge Allergies: Coded Allergies: No Known Allergies (Verified Allergy, Unknown, 04/10/07) Patient History Past Medical History: see triage record Past Surgical History: none Pertinent Family History: none Last Menstrual Period: unk Reviewed Nursing Documentation: PMH: Agreed, PSxH: Agreed Nursing Documentation-PMH Hx Hypertension: Yes Hx Diabetes: Yes Review of Systems All Other Systems: negative except mentioned in HPI Physical Exam Vital Signs Date Time Temp Pulse Resp B/P (MAP) Pulse Ox O2 Delivery O2 Flow Rate FiO2 05/21/17 21:07 97.7 81 16 135/89 100 Room Air Sp02 EP Interpretation: reviewed, normal General Appearance: normal inspection, well appearing, no apparent distress, alert, GCS 15, non-toxic Head: normocephalic, atraumatic Eyes: bilateral eye normal inspection, bilateral eye PERRL, bilateral eye EOMI ENT: normal ENT inspection, normal pharynx, normal voice, moist mucus membranes Neck: normal inspection, full range of motion, supple Respiratory: normal inspection, lungs clear, normal breath sounds, no respiratory distress, no retraction, no wheezing, speaking full sentences, chest symmetrical Cardiovascular #1: normal inspection, regular rate, rhythm, no edema, normal capillary refill Cardiovascular #2: 2+ radial (R), 2+ radial (L) Gastrointestinal: normal inspection, non tender, soft, non-distended, no guarding Genitourinary: other - Mild vaginal dryness, no vaginal discharge, no redness or erythema, no lesions Musculoskeletal: normal inspection, back normal, normal range of motion, non- tender Neurologic: normal inspection, alert, oriented x3, responsive, motor strength/ tone normal, sensory intact, normal gait, speech normal Psychiatric: normal inspection, judgement/insight normal, memory normal Skin: normal inspection, normal color, no rash, warm/dry, well hydrated, normal turgor Medical Decision Making Diagnostic Impression: Primary Impression: UTI (urinary tract infection) ER Course 37 yo F with dysuria/vaginal itching DDX: UTI / cystitis vs. pyelo vs STD/yeast infection Plan: UA, UCX ER course: Pt remains stable/nontoxic appearing in ED. UA positive Disposition: Patient will be discharged home with prescription of antibiotics. Strict return precautions to discussed with patient such as high fever, chills, abdominal pain , nausea or vomiting. Patient verbalized understanding. Patient instructed to follow up with primary care doctor within 3 days. Patient agrees with plan. Please note that this Emergency Department Report was dictated using [employer] support coordinator technology software, occasionally this can lead to erroneous entry secondary to interpretation by the dictation equipment Last Vital Signs Date Time Temp Pulse Resp B/P (MAP) Pulse Ox O2 Delivery O2 Flow Rate FiO2 05/21/17 22:21 137/90 05/21/17 22:21 97.7 88 16 100 Room Air Disposition: HOME, SELF-CARE Condition: Improved Scripts Cephalexin* (KEFLEX*) 500 Mg Capsule 500 MG ORAL Q6H for 7 Days, #28 CAP 0 Refills Prov: Kadeem Martinez M.D. 05/21/17 Referrals: HUANG DE LUNA,REFERRING (PCP) Patient Instructions: Urinary Tract Infection, [id number] Kadeem Martinez M.D. May 22, 2017 00:53
== END 2017-05-21 22:25 | disposition home or self-care (01) ==
LOC: EMR 21:25
DX: N39.0 Urinary tract infection, site not specified (principal); I10 Essential (primary) hypertension; E11.9 Type 2 diabetes mellitus without complications
CPT/HCPCS: 81003; 81025; 87086; 99283

== ENCOUNTER 2017-06-10 11:23 | Emergency (ER) | payer MEDICAID ==
[~2017-06-10] VITALS: Ht 167.6 cm; Wt 122.5 kg
--- NOTE | 2017-06-10 12:07 | Emergency Room Report ---
History of Present Illness General Chief Complaint: Vaginal Source: Patient Present Illness HPI 37 YO Female presents to the ED c/o vaginal irritation/ discomfort and thick white discharge x 1 week, s/p abx use. Denies recent unprotected intercourse. denies N/V/F/C, abdominal pain, hematuria, or frequency. Denies rashes, joint pains. Constipation or diarrhea. Denies rashes, joint pains. Constipation or diarrhea. Denies CP, Palpitations, LOC, AMS, dizziness, Changes in Vision, Sensation, paresthesias, or a sudden severe headache. Allergies: Coded Allergies: No Known Allergies (Verified Allergy, Unknown, 04/10/07) Patient History Past Medical History: see triage record, DM Past Surgical History: none Pertinent Family History: none Last Menstrual Period: unknown Now: No - tubal ligation Reviewed Nursing Documentation: PMH: Agreed, PSxH: Agreed Nursing Documentation-PMH Hx Hypertension: Yes Hx Diabetes: Yes Review of Systems All Other Systems: negative except mentioned in HPI Physical Exam Vital Signs Date Time Temp Pulse Resp B/P (MAP) Pulse Ox O2 Delivery O2 Flow Rate FiO2 06/10/17 11:25 97.9 83 16 125/84 97 Room Air Sp02 EP Interpretation: reviewed, normal General Appearance: no apparent distress, alert, GCS 15, non-toxic Head: normocephalic, atraumatic Eyes: bilateral eye normal inspection, bilateral eye PERRL ENT: hearing grossly normal, normal voice Neck: full range of motion Respiratory: lungs clear, normal breath sounds, speaking full sentences Cardiovascular #1: regular rate, rhythm Gastrointestinal: normal bowel sounds, non tender, soft, no guarding, no rebound Rectal: deferred Genitourinary: normal inspection, no CVA tenderness, cervix normal, ext genitalia/vag normal, other - thick white vaginal d/c, no CMT Musculoskeletal: back normal, gait/station normal, normal range of motion, non- tender Neurologic: alert, oriented x3, responsive, motor strength/tone normal, sensory intact, speech normal Psychiatric: judgement/insight normal, memory normal, mood/affect normal Skin: normal color, no rash, warm/dry, well hydrated Lymphatic: no adenopathy Medical Decision Making PA Attestation Dr. Maldonado is my supervising Physician whom patient management has been discussed with. Diagnostic Impression: Primary Impression: Vaginal discharge Additional Impression: UTI (urinary tract infection) Qualified Codes: N30.01 - Acute cystitis with hematuria ER Course Pt. presents to the ED c/o vaginal irritation/ discomfort and thick white discharge x 1 week, s/p abx use. denies recent unprotected intercourse. denies N/V/F/C, abdominal pain, hematuria , or frequency. Ddx considered but are not limited to UTi , Pyelo, STI, Stone, Cystitis, vaginal laceration, vaginitis. Vital signs: are WNL, pt. is afebrile H& PE are most consistent with: Vaginitis most likely secondary to abx use will r/o bv, will also check for UTI. ORDERS: - UA labs are attached : elevated inflammatory markers: WBC, and Leuks with few bacteria -Urine Hcg: negative ED INTERVENTIONS: -Diflucan PO DISCHARGE: At this time pt. is stable for d/c to home. Will provide printed patient care instructions, and any necessary prescriptions. Care plan and follow up instructions have been discussed with the patient prior to discharge. Labs Test 06/10/17 11:38 Urine Color Pale yellow Urine Appearance Slightly cloudy Urine pH 5 (4.5-8.0) Urine Specific [place] 1.020 (1.005-1.035) Urine Protein 3+ (NEGATIVE) Urine Glucose (UA) Negative (NEGATIVE) Urine Ketones Negative (NEGATIVE) Urine Occult Blood 3+ (NEGATIVE) Urine Nitrite Negative (NEGATIVE) Urine Bilirubin Negative (NEGATIVE) Urine Urobilinogen Normal MG/DL (0.0-1.0) Urine Leukocyte Esterase 3+ (NEGATIVE) Urine RBC 5-10 /HPF (0 - 2) Urine WBC 20-30 /HPF (0 - 2) Urine Squamous Epithelial Cells Few /LPF (NONE/OCC) Urine Bacteria Few /HPF (NONE) Urine HCG, Qualitative Negative Last Vital Signs Date Time Temp Pulse Resp B/P (MAP) Pulse Ox O2 Delivery O2 Flow Rate FiO2 06/10/17 11:25 97.9 83 16 125/84 97 Room Air Disposition: HOME, SELF-CARE Condition: Stable Scripts Fluconazole (FLUCONAZOLE) 100 Mg Tablet 100 MG ORAL DAILY for 3 Days, #3 TAB 0 Refills Prov: Chelsea Morales P.A. 06/10/17 Nitrofurantoin Monohyd/M-Cryst* (MACROBID 100 MG*) 100 Mg Capsule 100 MG ORAL EVERY 12 HOURS for 5 Days, #10 CAP Prov: Chelsea Morales 06/10/17 Patient Instructions: Urinary Tract Infection, [id number] Additional Instructions: Take medications as directed. Follow up with a Primary Care Provider OR [facility]BG[facility] from [facility] in 3-5 days , even if your symptoms have resolved. --Please review list of primary care clinics, if you do not already have a primary care provider Return sooner to ED if new symptoms occur, or current symptoms become worse. - Please note that this Emergency Department Report was dictated using [employer] specialist technology software, occasionally this can lead to erroneous entry secondary to interpretation by the dictation equipment. Chelsea Morales Jun 10, 2017 12:07
[2017-06-10 12:57] LABS: APPEARANCE,URINE SLIGHTLY CLOUDY; KETONES,URINE NEGATIVE (NEGATIVE); LEUKOCYTE ESTERASE ,URINE 3+ (NEGATIVE); NITRITE,URINE NEGATIVE (NEGATIVE); PH,URINE 5 (4.5-8.0); PROTEIN,URINE 3+ (NEGATIVE); UROBILINOGEN,URINE NORMAL MG/DL (0.0-1.0)
[2017-06-10 13:09] LABS: BACTERIA,URINE FEW /HPF; SQUAMOUS EPITHELIAL CELL,UR FEW /LPF (NONE/OCC); WBC,URINE 20-30 /HPF (0 - 2)
[2017-06-10] MEDS ORDERED: Fluconazole 100mg tab ORAL ONE (13:15)
[2017-06-10] MEDS ORDERED: FLUCONAZOLE100 MG ORAL (13:24)
[2017-06-10] MEDS ORDERED: NITROFURANTOIN100 M2 ORAL (13:24)
[2017-06-10 13:47] VITALS: BP 123/87
== END 2017-06-10 13:47 | disposition home or self-care (01) ==
LOC: EMR 12:25
DX: N89.8 Other specified noninflammatory disorders of vagina (principal); N39.0 Urinary tract infection, site not specified; I10 Essential (primary) hypertension; E11.9 Type 2 diabetes mellitus without complications
CPT/HCPCS: 81003; 81025; 87086; 87210; 99284

== ENCOUNTER 2017-09-08 09:20 | Emergency (ER) | payer MEDICAID ==
[~2017-09-08] VITALS: Ht 167.6 cm; Wt 124.3 kg
[2017-09-08] MEDS ORDERED: TRULICITY1.5 MG/0.5 SQ (09:39)
[2017-09-08] MEDS ORDERED: GLIPIZIDE10 MG PO (09:39)
[2017-09-08] MEDS ORDERED: IBUPROFEN600 MG ORAL (10:00)
[2017-09-08] MEDS ORDERED: ACETAMINOPHEN-1 EAC1 ORAL (10:00)
[2017-09-08] MEDS ORDERED: ZYRTEC10 MG ORAL (10:00)
[2017-09-08] MEDS ORDERED: AUGMENTIN 875-1 EAC1 ORAL (10:00)
[2017-09-08 10:13] VITALS: BP 148/88
--- NOTE | 2017-09-08 10:20 | Emergency Room Report ---
History of Present Illness General Chief Complaint: General Complaint Source: Patient Present Illness HPI Patient present with complaints of increased congestion and discomfort to the maxillary area and fore head Ongoing for over 2 weeks now Patient started with a mild nasal congestion Has not worsened to increased headaches in that area Also runny nose Pain is a pressure pain 5/10 minutes for head nasal bridge and maxillary area Denies any neck pain or photophobia Denies any pain to the top of the head or occipital region denies any focal weakness Denies any neck pain or photophobia Allergies: Coded Allergies: No Known Allergies (Verified Allergy, Unknown, 04/10/07) Patient History Past Medical History: see triage record Pertinent Family History: none Last Menstrual Period: Unk Now: No Reviewed Nursing Documentation: PMH: Agreed, PSxH: Agreed Nursing Documentation-PMH Hx Hypertension: Yes Hx Diabetes: Yes Review of Systems All Other Systems: negative except mentioned in HPI Physical Exam Vital Signs Date Time Temp Pulse Resp B/P (MAP) Pulse Ox O2 Delivery O2 Flow Rate FiO2 09/08/17 09:33 98.2 73 18 160/105 98 Room Air Sp02 EP Interpretation: reviewed, normal General Appearance: well appearing, no apparent distress Head: normocephalic, atraumatic Eyes: bilateral eye PERRL, bilateral eye EOMI ENT: hearing grossly normal, normal pharynx, TMs + canals normal, uvula midline , other - Increased pressure production over palpation of the maxillary, and mid nasal bridge, no obvious proptosis Neck: full range of motion, supple, no meningismus, no bony tend Respiratory: lungs clear, normal breath sounds, no rhonchi, no respiratory distress, no retraction, no accessory muscle use Cardiovascular #1: normal peripheral pulses, regular rate, rhythm, no edema, no gallop, no JVD, no murmur Gastrointestinal: normal bowel sounds, non tender, soft, no mass, no organomegaly, non-distended, no guarding, no hernia, no pulsatile mass, no rebound Musculoskeletal: normal inspection Neurologic: oriented x3, responsive, primary class teacher III-XII nml as tested, motor strength/ tone normal, sensory intact Psychiatric: mood/affect normal Skin: normal color, no rash, warm/dry, palpation normal Lymphatic: normal inspection, no adenopathy Medical Decision Making Diagnostic Impression: Primary Impression: sinusitis ER Course Multiple differentials such as cavernous venous thrombosis, other neurological neurosurgical, infectious pathology entertained Patient appears to have clinical findings and exam appropriate for sinusitis Given the duration and the presentation patient meets criteria for antibiotic coverage and will require close followup Last Vital Signs Date Time Temp Pulse Resp B/P (MAP) Pulse Ox O2 Delivery O2 Flow Rate FiO2 09/08/17 10:13 98.4 72 18 148/88 97 Room Air Status: improved Disposition: HOME, SELF-CARE Condition: Stable Scripts Acetaminophen With Codeine (T#3) (TYLENOL #3 TAB*) Y Tab 1 TAB ORAL Q8H Y for For Pain, #12 TAB Prov: SINDHU HUDSON D.O. 09/08/17 Ibuprofen* (MOTRIN*) 600 Mg Tablet 600 MG ORAL Q8H Y for For Pain, #30 TAB 0 Refills Prov: SINDHU HUDSON D.O. 09/08/17 Cetirizine Hcl* (ZYRTEC*) 10 Mg Tablet 10 MG ORAL DAILY, #30 TAB 0 Refills Prov: SINDHU HUDSON D.O. 09/08/17 Amoxicillin/Potassium Clav 875-125* (AUGMENTIN 875-125 TABLET*) 1 Each Tablet 1 TAB ORAL TWICE A DAY, #20 TAB Prov: SINDHU HUDSON D.O. 09/08/17 Referrals: HUANG DE LUNA,REFERRING (PCP) Patient Instructions: Sinusitis, Adult, [id number] Additional Instructions: Patient is provided with the discharge instructions notified to follow up with primary doctor in the next 2-3 days otherwise return to the er with any worsening symptoms. Please note that this report is being documented using [employer] technology. This can lead to erroneous entry secondary to incorrect interpretation by the dictating instrument. SINDHU HUDSON D.O. Sep 08, 2017 10:20
[2017-09-09] MEDS ORDERED: PREDNISONE20 MG ORAL (12:10)
== END 2017-09-08 10:13 | disposition home or self-care (01) ==
LOC: EMR 09:54
DX: J32.9 Chronic sinusitis, unspecified (principal); I10 Essential (primary) hypertension; E11.9 Type 2 diabetes mellitus without complications
CPT/HCPCS: 99283

== ENCOUNTER 2017-09-09 11:24 | Emergency (ER) | payer MEDICAID ==
[~2017-09-09] VITALS: Ht 167.6 cm; Wt 124.3 kg
[~2017-09-09 11:24] MED LIST changes: +AUGMENTIN 875-1 EAC1 ORAL; +GLIPIZIDE10 MG PO; +TRULICITY1.5 MG/0.5 SQ; +ZYRTEC10 MG ORAL
[2017-09-09] MEDS ORDERED: PREDNISONE20 MG ORAL (12:10)
[2017-09-09 12:15] VITALS: BP 145/100
--- NOTE | 2017-09-10 14:56 | Emergency Room Report ---
History of Present Illness General Chief Complaint: Upper Respiratory Illness Source: Patient Present Illness HPI 37-year-old female presents to ED for evaluation. States that she was seen here yesterday and diagnosed with sinusitis. Was prescribed pain medications, allergies medications and antibiotics. States she started prescriptions. States she is continuing to have a headache. Throbbing, 04/11, nonradiating. Denies photophobia or blurry vision. States her sinuses are very congested. Denies sore throat or earache. Denies fevers chills. No other aggravating factors. Denies any other associated symptoms Allergies: Coded Allergies: No Known Allergies (Verified Allergy, Unknown, 04/10/07) Patient History Past Medical History: DM, HTN Past Surgical History: none Pertinent Family History: none Social History: Denies: smoking, alcohol use, drug use Last Menstrual Period: Does not know - irregualr; denies . Now: No Immunizations: UTD Reviewed Nursing Documentation: PMH: Agreed, PSxH: Agreed Nursing Documentation-PMH Hx Hypertension: Yes Hx Diabetes: Yes Review of Systems All Other Systems: negative except mentioned in HPI Physical Exam Vital Signs Date Time Temp Pulse Resp B/P (MAP) Pulse Ox O2 Delivery O2 Flow Rate FiO2 09/09/17 11:24 80 18 Room Air 09/09/17 11:34 100.6 148/101 98 Sp02 EP Interpretation: reviewed, normal General Appearance: no apparent distress, alert, GCS 15, non-toxic Head: normocephalic, atraumatic Eyes: bilateral eye normal inspection, bilateral eye PERRL ENT: normal ENT inspection, hearing grossly normal, normal pharynx, no angioedema, normal voice, TMs + canals normal Neck: full range of motion, supple/symm/no masses Respiratory: chest non-tender, lungs clear, normal breath sounds, speaking full sentences Cardiovascular #1: regular rate, rhythm, no edema Cardiovascular #2: 2+ carotid (R), 2+ carotid (L), 2+ radial (R), 2+ radial (L) , 2+ dorsalis pedis (R), 2+ dorsalis pedis (L) Gastrointestinal: normal bowel sounds, non tender, soft, non-distended, no guarding, no rebound Rectal: deferred Genitourinary: normal inspection, no CVA tenderness Musculoskeletal: back normal, gait/station normal, normal range of motion, non- tender Neurologic: alert, oriented x3, responsive, motor strength/tone normal, sensory intact, speech normal Psychiatric: judgement/insight normal, memory normal, mood/affect normal, no suicidal/homicidal ideation Reflexes: 3+ bicep (R), 3+ bicep (L), 3+ tricep (R), 3+ tricep (L), 3+ knee (R) , 3+ knee (L) Skin: normal color, no rash, warm/dry, well hydrated Lymphatic: no adenopathy Medical Decision Making Diagnostic Impression: Primary Impression: Sinusitis Qualified Codes: J01.10 - Acute frontal sinusitis, unspecified ER Course Hospital Course 37-year-old F presents to ED complaining of nasal congestion, headache. h/o sinusitits Differential diagnoses include: URI, pharyngitis, otitis media, asthma Clinical course Patient placed on stretcher. After initial history, physical exam reveals a female in no acute distress. Bilateral TM unremarkable. No pharyngeal erythema. No tonsillar exudates. No lymphadenopathy. lungs clear. abdomen soft. Clinical findings consistent with sinusitits. Patient was prescribed Zyrtec, pain medications and Augmentin. I believe the management prescriptions are appropriate. Encourage patient to continue the medications. I will prescribe prednisone to help with inflammation. Recommend [id number] medications like Mucinex to help relieve the congestion Diagnosis - sinusitits Stable and discharged home with prescriptions for Prednisone. continue medications previously prescribed. Instructed to followup with PMD. Return to ED if symptoms recur or worsen Last Vital Signs Date Time Temp Pulse Resp B/P (MAP) Pulse Ox O2 Delivery O2 Flow Rate FiO2 09/09/17 12:15 100.6 70 18 145/100 100 Room Air Status: improved Disposition: HOME, SELF-CARE Condition: Stable Scripts Prednisone* (PREDNISONE*) 20 Mg Tablet 40 MG ORAL DAILY, #10 TAB Prov: MONY FORD M.D. 09/09/17 Referrals: HUANG DE LUNA,REFERRING (PCP) Departure Forms: Return to Work Return to Work Date: Sep 11, 2017 Work Restrictions: None Patient Instructions: Sinusitis, Adult, [id number] Additional Instructions: take mucinex over the counter MONY FORD M.D. Sep 10, 2017 14:56
== END 2017-09-09 12:15 | disposition home or self-care (01) ==
LOC: EMR 12:05
DX: J32.9 Chronic sinusitis, unspecified (principal); E11.9 Type 2 diabetes mellitus without complications; I10 Essential (primary) hypertension
CPT/HCPCS: 99283

== ENCOUNTER 2017-09-18 12:31 | Emergency (ER) | payer MEDICAID ==
[~2017-09-18] VITALS: Ht 167.6 cm; Wt 124.3 kg
[~2017-09-18 12:31] MED LIST changes: +PREDNISONE20 MG ORAL
[2017-09-18] MEDS ORDERED: KEFLEX500 MG ORAL (13:03)
--- NOTE | 2017-09-18 13:03 | Emergency Room Report ---
History of Present Illness General Chief Complaint: Female Urogenital Problems Source: Patient Present Illness HPI 37-year-old female, history of diabetes, presenting with dysuria for 3 days. Urinary frequency and burning. No fever no chills no vomiting. No abdominal pain Allergies: Coded Allergies: No Known Allergies (Verified Allergy, Unknown, 04/10/07) Patient History Past Medical History: see triage record Past Surgical History: none Pertinent Family History: none Reviewed Nursing Documentation: PMH: Agreed, PSxH: Agreed Nursing Documentation-PMH Hx Hypertension: Yes Hx Diabetes: Yes Review of Systems All Other Systems: negative except mentioned in HPI Physical Exam Vital Signs Date Time Temp Pulse Resp B/P (MAP) Pulse Ox O2 Delivery O2 Flow Rate FiO2 09/18/17 12:37 97.0 87 20 99 Room Air Sp02 EP Interpretation: reviewed, normal General Appearance: normal inspection, well appearing, no apparent distress, alert, GCS 15, non-toxic Head: normocephalic, atraumatic Eyes: bilateral eye normal inspection, bilateral eye PERRL, bilateral eye EOMI ENT: normal ENT inspection, normal pharynx, normal voice, moist mucus membranes Neck: normal inspection, full range of motion, supple Respiratory: normal inspection, lungs clear, normal breath sounds, no respiratory distress, no retraction, no wheezing, speaking full sentences, chest symmetrical Cardiovascular #1: normal inspection, regular rate, rhythm, no edema, normal capillary refill Cardiovascular #2: 2+ radial (R), 2+ radial (L) Gastrointestinal: normal inspection, non tender, soft, non-distended, no guarding Musculoskeletal: normal inspection, back normal, normal range of motion, non- tender Neurologic: normal inspection, alert, oriented x3, responsive, motor strength/ tone normal, sensory intact, normal gait, speech normal Psychiatric: normal inspection, judgement/insight normal, memory normal Skin: normal inspection, normal color, no rash, warm/dry, well hydrated, normal turgor Medical Decision Making Diagnostic Impression: Primary Impression: UTI (urinary tract infection) ER Course 37-year-old female with dysuria Rule out UTI ER course: Pt remains stable/nontoxic appearing in ED. UA positive Disposition: Patient will be discharged home with prescription of antibiotics. Strict return precautions to discussed with patient such as high fever, chills, abdominal pain , nausea or vomiting. Patient verbalized understanding. Patient instructed to follow up with primary care doctor within 3 days. Patient agrees with plan. Please note that this Emergency Department Report was dictated using [employer] paleontologist technology software, occasionally this can lead to erroneous entry secondary to interpretation by the dictation equipment Laboratory Tests Test 09/18/17 12:40 Urine Color Yellow Urine Appearance Turbid Urine pH 5 (4.5-8.0) Urine Specific [place] 1.025 (1.005-1.035) Urine Protein 4+ (NEGATIVE) H Urine Glucose (UA) Negative (NEGATIVE) Urine Ketones Negative (NEGATIVE) Urine Occult Blood 2+ (NEGATIVE) H Urine Nitrite Negative (NEGATIVE) Urine Bilirubin Negative (NEGATIVE) Urine Urobilinogen Normal MG/DL (0.0-1.0) Urine Leukocyte Esterase 3+ (NEGATIVE) H Urine RBC 5-10 /HPF (0 - 2) H Urine WBC 60-80 /HPF (0 - 2) H Urine Squamous Epithelial Cells Many /LPF (NONE/OCC) H Urine Bacteria Moderate /HPF (NONE) H Last Vital Signs Date Time Temp Pulse Resp B/P (MAP) Pulse Ox O2 Delivery O2 Flow Rate FiO2 09/18/17 12:37 97.0 87 20 99 Room Air Disposition: HOME, SELF-CARE Condition: Improved Scripts Cephalexin* (KEFLEX*) 500 Mg Capsule 500 MG ORAL Q6H for 7 Days, #28 CAP 0 Refills Prov: Kadeem Martinez M.D. 09/18/17 Referrals: HUANG DE LUNA,REFERRING (PCP) Patient Instructions: Urinary Tract Infection Kadeem Martinez M.D. Sep 18, 2017 13:03
[2017-09-18 13:35] LABS: APPEARANCE,URINE TURBID; BILIRUBIN, URINE NEGATIVE (NEGATIVE); GLUCOSE, URINE (UA) NEGATIVE (NEGATIVE); KETONES,URINE NEGATIVE (NEGATIVE); LEUKOCYTE ESTERASE ,URINE 3+ (NEGATIVE); NITRITE,URINE NEGATIVE (NEGATIVE); PH,URINE 5 (4.5-8.0); PROTEIN,URINE 4+ (NEGATIVE); UROBILINOGEN,URINE NORMAL MG/DL (0.0-1.0)
[2017-09-18 13:36] LABS: COLOR,URINE YELLOW
[2017-09-18 13:58] VITALS: BP 146/68
== END 2017-09-18 13:58 | disposition home or self-care (01) ==
LOC: EMR 12:55
DX: N39.0 Urinary tract infection, site not specified (principal); I10 Essential (primary) hypertension; E11.9 Type 2 diabetes mellitus without complications
CPT/HCPCS: 81003; 87086; 99283

== ENCOUNTER 2017-09-20 23:41 | Emergency (ER) | payer MEDICAID ==
[~2017-09-20] VITALS: Ht 167.6 cm; Wt 124.3 kg
[2017-09-21] MEDS ORDERED: Ketorolac 60mg Inj IM ONE (00:15)
--- NOTE | 2017-09-21 00:19 | Emergency Room Report ---
History of Present Illness General Chief Complaint: Pain Source: Patient Present Illness HPI Patient presents with right shoulder pain. It started this morning. She thinks she might have awoken with it. She denies any trauma. She denies gout. She denies fevers, cough, chest pain. The pain is 10/10 and aching and sharp at this time. There's some burning quality to 2. It radiates down into her right hand. It's worse when she moves about. Subjective numbness. The patient's had similar problems with her left shoulder the past. She was sent home from work today. Her sugars are "good". Patient denies any dysuria at this time. No NVD. 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 Period: UKN Now: No Reviewed Nursing Documentation: PMH: Agreed, PSxH: Agreed Nursing Documentation-PMH Past Medical History: No History, Except For Hx Hypertension: Yes Hx Diabetes: Yes Review of Systems All Other Systems: negative except mentioned in HPI Physical Exam Vital Signs Date Time Temp Pulse Resp B/P (MAP) Pulse Ox O2 Delivery O2 Flow Rate FiO2 09/20/17 23:56 99.0 85 16 141/82 99 Room Air Sp02 EP Interpretation: reviewed, normal General Appearance: well appearing, no apparent distress, alert, GCS 15 Head: normocephalic, atraumatic Eyes: bilateral eye normal inspection, bilateral eye PERRL ENT: hearing grossly normal, normal voice Neck: full range of motion, supple Respiratory: chest non-tender, lungs clear, normal breath sounds, no respiratory distress, speaking full sentences Cardiovascular #1: regular rate, rhythm Cardiovascular #2: 2+ radial (R) Gastrointestinal: non tender, overweight Musculoskeletal: back normal, digits/nails normal, gait/station normal, decreased range of mation - R shoulder with tenderness to palpation Neurologic: alert, motor strength/tone normal, DTRs symmetric, sensory intact, normal gait, other - RMU nerves normal Psychiatric: mood/affect normal Skin: no rash Medical Decision Making Diagnostic Impression: Primary Impression: Right shoulder pain Qualified Codes: M25.511 - Pain in right shoulder Additional Impressions: Calcific tendinitis Osteoarthritis Qualified Codes: M19.011 - Primary osteoarthritis, right shoulder ER Course Patient presents with nontraumatic right shoulder pain. Differential includes as strain, tendinitis, bursitis amongst others. X-rays are indicated. Also we will check an Accu-Chek. Patient denies any history of gout opposes was a consideration. Patient be treated with Toradol and Tylenol. Also a sling will be applied. Xray with djd an calcific tendinitis. Sling applied by tech. Position excellent. Neurovasc normal as checked by me. Patient stable for outpatient observation and treatment. Other X-Ray Diagnostic Results Other X-Ray Diagnostic Results : X-Ray ordered: R shoulder # of Views/Limited Vs Complete: 3 View Indication: Pain EP Interpretation: Yes Interpretation: no dislocation, no soft tissue swelling, no fractures, other - calcific tendinitis, DJD Impression: Other Electronically Signed by: Silas Monroy MD Last Vital Signs Date Time Temp Pulse Resp B/P (MAP) Pulse Ox O2 Delivery O2 Flow Rate FiO2 09/21/17 01:50 99.0 16 141/82 99 Room Air 09/20/17 23:56 85 Status: improved Disposition: HOME, SELF-CARE Condition: Improved Scripts Ibuprofen* (MOTRIN*) 600 Mg Tablet 600 MG ORAL Q6H Y for For Pain, #20 TAB Prov: Silas Monroy M.D. 09/21/17 Tramadol Hcl* (ULTRAM*) 50 Mg Tablet 50 MG ORAL Q6H Y for For Pain, #8 TAB 0 Refills Prov: Silas Monroy M.D. 09/21/17 Silas Monroy M.D. Sep 21, 2017 00:19
[2017-09-21] MEDS ORDERED: IBUPROFEN600 MG ORAL (01:43)
[2017-09-21] MEDS ORDERED: TRAMADOL HCL50 MG ORAL (01:43)
[2017-09-21 01:47] VITALS: BP 141/82
[2017-09-21 01:50] VITALS: BP 141/82
--- NOTE | 2017-09-21 09:18 | Diagnostic Imaging Report ---
Indication: Shoulder pain Technique: Right shoulder, 3 views Comparison: None. Findings: Examination demonstrates calcification adjacent to the greater tuberosity. There is a spur on the superior surface of the acromion. No fracture. No bone destruction. No dislocation. Impression: Calcific tendinitis of the right shoulder. Spur on the acromion.
== END 2017-09-21 01:55 | disposition home or self-care (01) ==
LOC: EMR 09-21 00:15
DX: M75.31 Calcific tendinitis of right shoulder (principal); M19.011 Primary osteoarthritis, right shoulder; I10 Essential (primary) hypertension; E11.9 Type 2 diabetes mellitus without complications
CPT/HCPCS: 99284

== ENCOUNTER 2018-03-20 15:16 | Emergency (ER) | payer MEDICAID ==
[~2018-03-20] VITALS: Ht 167.6 cm; Wt 127.0 kg
[2018-03-20 16:25] VITALS: BP 129/79
[2018-03-20] MEDS ORDERED: Azithromycin 250mg tab ORAL ONE (16:30)
[2018-03-20] MEDS ORDERED: Lidocaine 1% MPF 10mg/ml 5ml INJ ONE (16:30)
--- NOTE | 2018-03-20 16:37 | Emergency Room Report ---
History of Present Illness General Chief Complaint: Female Urogenital Problems Source: Patient Present Illness HPI 38-year-old female presents to the emergency department complaining of external vaginal itching with some white discharge 2 days. Denies pain at the moment but upon urination 10/10 in severity pain. Denies lesions in the genital area, joint pain or swollen tender lymph nodes. Patient also reports recent unprotected intercourse and is requesting to be treated for STDs. Pt. also reports a "bump" on the right index finger. Patient denies hematuria she reports dysuria she denies urinary frequency. Patient denies fevers, chills, abdominal pain/tenderness, nausea, vomiting or . pmhx of DM on multiple glycemic control PO meds. no recent abx use. Allergies: Coded Allergies: No Known Allergies (Verified Allergy, Unknown, 04/10/07) Patient History Past Medical History: see triage record Past Surgical History: none Pertinent Family History: none Last Menstrual Period: unknown Now: No Immunizations: UTD Reviewed Nursing Documentation: PMH: Agreed; PSxH: Agreed Nursing Documentation-PMH Past Medical History: No History, Except For Hx Hypertension: Yes Hx Diabetes: Yes Review of Systems All Other Systems: negative except mentioned in HPI Physical Exam Vital Signs Date Time Temp Pulse Resp B/P (MAP) Pulse Ox O2 Delivery O2 Flow Rate FiO2 03/20/18 15:35 99.3 84 20 130/83 93 Room Air 99.3 Sp02 EP Interpretation: reviewed, normal General Appearance: no apparent distress, alert, GCS 15, non-toxic Head: normocephalic, atraumatic ENT: hearing grossly normal, normal voice Neck: full range of motion Respiratory: lungs clear, normal breath sounds, speaking full sentences Cardiovascular #1: regular rate, rhythm Gastrointestinal: normal bowel sounds, non tender, soft, non-distended, no guarding Rectal: deferred Genitourinary: normal inspection, no CVA tenderness, adnexa normal, other - thin clear d/c. Musculoskeletal: back normal, gait/station normal, normal range of motion, non- tender Neurologic: alert, oriented x3, responsive, motor strength/tone normal, sensory intact, speech normal, grossly normal Psychiatric: judgement/insight normal Skin: normal color, no rash, warm/dry, well hydrated, other - wart on the right index. palmar aspect, no evidence of infection, no blisters or vesicles. external vaginal labia have macerated appearance and excoriations, no significant erythema. Lymphatic: no adenopathy Medical Decision Making PA Attestation Dr. Pickering is my supervising Physician whom patient management has been discussed with. Diagnostic Impression: Primary Impression: Vaginitis Qualified Codes: N76.0 - Acute vaginitis ER Course 38-year-old female presents to the emergency department complaining of external vaginal itching with some white discharge 2 days. Denies pain at the moment but upon urination 10/10 in severity pain. Denies lesions in the genital area, joint pain or swollen tender lymph nodes. Patient also reports recent unprotected intercourse and is requesting to be treated for STDs. Pt. also reports a "bump" on the right index finger. Patient denies hematuria she reports dysuria she denies urinary frequency. Patient denies fevers, chills, abdominal pain/tenderness, nausea, vomiting or . pmhx of DM on multiple glycemic control PO meds. no recent abx use. Ddx considered but are not limited to UTi , STI, G & C, trichomonas, Vaginitis , cervicitis, bartholins gland cyst or cellulitis. Vital signs: are WNL, pt. is afebrile H&PE are most consistent with vaginitis, external labia are macerated in appearance, most likely yeast vaginitis. ORDERS: - UA: no elevation in inflammatory markers, protein and glucose noted no ketones , not consistent with UTI, suspect elevated blood sugar level. - Urine HCG: negative ED INTERVENTIONS: -250mg Rocephin IM -1g Azithromycin DISCHARGE: At this time pt. is stable for d/c to home. Will provide printed patient care instructions, and any necessary prescriptions. Care plan and follow up instructions have been discussed with the patient prior to discharge. Labs Test 03/20/18 16:48 Urine Color Pale yellow Urine Appearance Clear Urine pH 5 (4.5-8.0) Urine Specific [place] 1.010 (1.005-1.035) Urine Protein 2+ (NEGATIVE) Urine Glucose (UA) 4+ (NEGATIVE) Urine Ketones Negative (NEGATIVE) Urine Occult Blood 2+ (NEGATIVE) Urine Nitrite Negative (NEGATIVE) Urine Bilirubin Negative (NEGATIVE) Urine Urobilinogen Normal MG/DL (0.0-1.0) Urine Leukocyte Esterase 3+ (NEGATIVE) Urine RBC 5-10 /HPF (0 - 2) Urine WBC 20-30 /HPF (0 - 2) Urine Squamous Epithelial Cells Few /LPF (NONE/OCC) Urine Bacteria Occasional /HPF (NONE) Last Vital Signs Date Time Temp Pulse Resp B/P (MAP) Pulse Ox O2 Delivery O2 Flow Rate FiO2 03/20/18 15:35 99.3 84 20 130/83 93 Room Air 99.3 Disposition: HOME, SELF-CARE Condition: Stable Scripts Salicylic Acid (WART REMOVER) 9.12 Ml Liquid 1 APPLIC TP DAILY, #9.7 ML Prov: Chelsea Morales 03/20/18 Fluconazole (FLUCONAZOLE) 100 Mg Tablet 100 MG ORAL DAILY, #3 TAB 0 Refills Prov: Chelsea Morales 03/20/18 Metronidazole* (METROGEL-VAGINAL*) 70 Gm Gel.w.appl 1 APPL VAGIN EVERY 12 HOURS, #70 GM Prov: Chelsea Morales 03/20/18 Patient Instructions: Vaginitis Additional Instructions: Take medications as directed. Follow up with a OBGYN within 3 days, even if your symptoms have resolved. Return sooner to ED if new symptoms occur, or current symptoms become worse. - Please note that this Emergency Department Report was dictated using [employer] operator technology software, occasionally this can lead to erroneous entry secondary to interpretation by the dictation equipment. Chelsea Morales Mar 20, 2018 16:37
[2018-03-20 17:30] LABS: APPEARANCE,URINE CLEAR; BILIRUBIN, URINE NEGATIVE (NEGATIVE); COLOR,URINE PALE YELLOW; GLUCOSE, URINE (UA) 4+ (NEGATIVE); KETONES,URINE NEGATIVE (NEGATIVE); LEUKOCYTE ESTERASE ,URINE 3+ (NEGATIVE); NITRITE,URINE NEGATIVE (NEGATIVE); PH,URINE 5 (4.5-8.0); PROTEIN,URINE 2+ (NEGATIVE); UROBILINOGEN,URINE NORMAL MG/DL (0.0-1.0)
[2018-03-20] MEDS ORDERED: FLUCONAZOLE100 MG ORAL (18:04)
[2018-03-20] MEDS ORDERED: METROGEL-VAGINA70 G1 VAGIN (18:04)
[2018-03-20] MEDS ORDERED: WART REMOVER TP (18:04)
[2018-03-20 18:12] VITALS: BP 132/73
[2018-03-20 18:16] VITALS: BP 132/73
== END 2018-03-20 18:16 | disposition home or self-care (01) ==
LOC: EMR 17:29
DX: N76.0 Acute vaginitis (principal); I10 Essential (primary) hypertension; E11.9 Type 2 diabetes mellitus without complications
CPT/HCPCS: 81003; 87086; 96372; 99284; J0696; Q0144

== ENCOUNTER 2018-03-31 19:21 | Emergency (ER) | payer MEDICAID ==
[~2018-03-31] VITALS: Ht 167.6 cm; Wt 127.0 kg
[~2018-03-31 19:21] MED LIST changes: +METROGEL-VAGINA70 G1 VAGIN; +WART REMOVER TP
[2018-03-31 19:48] VITALS: BP 130/90
[2018-03-31] MEDS ORDERED: CEPHALEXIN500 MG ORAL (19:59)
--- NOTE | 2018-03-31 19:59 | Emergency Room Report ---
History of Present Illness General Chief Complaint: Skin Rash/Abscess Present Illness HPI 38-year-old female presents to the emergency department complaining of discoloration and 8/10 burning to the skin around a wart on her right index finger that she has been applying an OTC wart remover on x 3 days. Patient describes applying the remover all over the finger. She denies pain at this time. Patient reports history of diabetes. Denies open wounds or bleeding. She Denies fevers or chills. denies lesions elsewhere on the body, swelling of the lips or tongue, or wheezing/cough/difficulty breathing. Allergies: Coded Allergies: No Known Allergies (Verified Allergy, Unknown, 04/10/07) Patient History Past Medical History: see triage record Past Surgical History: none Pertinent Family History: none Now: No Immunizations: UTD Reviewed Nursing Documentation: PMH: Agreed; PSxH: Agreed Nursing Documentation-PMH Hx Hypertension: Yes Hx Diabetes: Yes Review of Systems All Other Systems: negative except mentioned in HPI Physical Exam Vital Signs Date Time Temp Pulse Resp B/P (MAP) Pulse Ox O2 Delivery O2 Flow Rate FiO2 03/31/18 19:37 97.9 74 16 130/90 96 Room Air 97.9 Sp02 EP Interpretation: reviewed, normal General Appearance: no apparent distress, alert, GCS 15, non-toxic Head: normocephalic, atraumatic ENT: hearing grossly normal, normal voice Neck: full range of motion Respiratory: lungs clear, normal breath sounds, speaking full sentences Cardiovascular #1: regular rate, rhythm, normal capillary refill Musculoskeletal: back normal, gait/station normal, normal range of motion, non- tender Neurologic: alert, oriented x3, responsive, motor strength/tone normal, sensory intact, normal gait, speech normal, grossly normal Psychiatric: judgement/insight normal Skin: no rash, warm/dry, well hydrated, other - 2 mm wart on the palmar aspect of the right index finger, 1 cm discolored area of skin that is white, non- macerated, no erythema, and no blisters or vesicles. Medical Decision Making PA Attestation Dr. kinney is my supervising Physician whom patient management has been discussed with. Diagnostic Impression: Primary Impression: Chemical burn of finger Qualified Codes: T23.421A - Corrosion of unspecified degree of single right finger (nail) except thumb, initial encounter ER Course 38-year-old female presents to the emergency department complaining of discoloration and 8/10 burning to the skin around a wart on her right index finger that she has been applying an OTC wart remover on x 3 days. Patient describes applying the remover all over the finger. She denies pain at this time. Patient reports history of diabetes. Denies open wounds or bleeding. She Denies fevers or chills. denies lesions elsewhere on the body, swelling of the lips or tongue, or wheezing/cough/difficulty breathing. Ddx considered but are not limited to Chemical burn, dermatitis, cellulitis, acute drug eruption just to name a few Vital signs: are WNL, pt. is afebrile H&PE are most consistent with chemical burn ORDERS: none required at this time, the diagnosis is clinical ED INTERVENTIONS: None required at this time. -Discussed with patient that the worker move her is only meant to be applied directly on the affected skin did not all over the finger pad. I also discussed with this patient that due to having diabetes she is immunocompromise and will place her on Keflex antibiotic. DISCHARGE: At this time pt. is stable for d/c to home. Will provide printed patient care instructions, and any necessary prescriptions. Care plan and follow up instructions have been discussed with the patient prior to discharge. Last Vital Signs Date Time Temp Pulse Resp B/P (MAP) Pulse Ox O2 Delivery O2 Flow Rate FiO2 03/31/18 19:48 97.9 74 16 130/90 96 Room Air 97.9 Disposition: HOME, SELF-CARE Condition: Stable Scripts Cephalexin* (KEFLEX*) 500 Mg Capsule 500 MG ORAL EVERY 12 HOURS for 7 Days, #14 CAP 0 Refills Prov: Chelsea Morales 03/31/18 Patient Instructions: Chemical Burn, [id number] Additional Instructions: Take medications as directed. Do Not Apply wart remover on normal/unaffected skin Keep and eye out for signs of infection . Follow up with a Primary Care Provider in 3-5 days, even if your symptoms have resolved. --Please review list of primary care clinics, if you do not already have a primary care provider Return sooner to ED if new symptoms occur, or current symptoms become worse. - Please note that this Emergency Department Report was dictated using [employer] dramatic arts technology software, occasionally this can lead to erroneous entry secondary to interpretation by the dictation equipment. Chelsea Morales Mar 31, 2018 19:59
[2018-03-31 20:17] VITALS: BP 130/90
== END 2018-03-31 20:10 | disposition home or self-care (01) ==
LOC: EMR 19:56
DX: T23.421A Corrosion of unspecified degree of single right finger (nail) except thumb, initial encounter (principal); Y93.89 Activity, other specified; Y92.9 Unspecified place or not applicable; E11.9 Type 2 diabetes mellitus without complications; I10 Essential (primary) hypertension
CPT/HCPCS: 99283

== ENCOUNTER 2018-04-24 12:57 | Emergency (ER) | payer MEDICAID ==
[~2018-04-24] VITALS: Ht 167.6 cm; Wt 117.9 kg
[~2018-04-24 12:57] MED LIST changes: +CEPHALEXIN500 MG ORAL
[2018-04-24 14:38] VITALS: BP 136/76
[2018-04-24 14:55] LABS: APPEARANCE,URINE TURBID; BILIRUBIN, URINE NEGATIVE (NEGATIVE); COLOR,URINE PALE YELLOW; GLUCOSE, URINE (UA) 4+ (NEGATIVE); KETONES,URINE NEGATIVE (NEGATIVE); LEUKOCYTE ESTERASE ,URINE NEGATIVE (NEGATIVE); NITRITE,URINE NEGATIVE (NEGATIVE); PH,URINE 5 (4.5-8.0); PROTEIN,URINE 3+ (NEGATIVE); UROBILINOGEN,URINE NORMAL MG/DL (0.0-1.0)
[2018-04-24 14:58] LABS: BASOPHILS % (AUTO) 0.7 % (0.0-2.0); EOSINOPHILS % (AUTO) 1.6 % (0.0-3.0); HEMATOCRIT 42.7 % (37.0-47.0); HEMOGLOBIN 14.2 G/DL (12.0-16.0); LYMPHOCYTES % (AUTO) 11.3 % (20.0-45.0); MEAN CORPUSCULAR VOLUME 86 FL (80-99); MONOCYTES % (AUTO) 5.9 % (1.0-10.0); NEUTROPHILS % (AUTO) 80.5 % (45.0-75.0); PLATELET COUNT 331 K/UL (150-450); RED BLOOD COUNT 4.94 M/UL (4.20-5.40); RED CELL DISTRIBUTION WIDTH 12.2 % (11.6-14.8); WHITE BLOOD COUNT 15.2 K/UL (4.8-10.8)
[2018-04-24 15:11] LABS: ANION GAP 10 mmol/L (5-15); BLOOD UREA NITROGEN 11 mg/dL (7-18); CALCIUM 9.9 MG/DL (8.5-10.1); CARBON DIOXIDE 30 MMOL/L (21-32); CHLORIDE 100 MMOL/L (98-107); CREATININE 0.7 MG/DL (0.55-1.30); POTASSIUM 3.1 MMOL/L (3.5-5.1); SODIUM 140 MMOL/L (136-145)
--- NOTE | 2018-04-24 15:20 | Diagnostic Imaging Report ---
Indication: Chest pain Technique: XRAY Chest 1v Comparison: 11/19/2016 Findings: Heart size and mediastinal contours are within normal limits and stable compared to the prior exam. Multiple linear atelectasis or scarring in the periphery of the left lower lung. Otherwise, There is no definite focal consolidation, pneumothorax or pleural effusion. Osseous structures demonstrate no acute abnormality. Impression: No radiographic evidence of acute cardiopulmonary disease. Minimal linear atelectasis or scarring at the periphery of the left lower lung.
[2018-04-24 15:27] LABS: ALANINE AMINOTRANSFERASE 39 U/L (12-78); ALBUMIN 3.8 G/DL (3.4-5.0); ALBUMIN/GLOBULIN RATIO 0.8 (1.0-2.7); ALKALINE PHOSPHATASE 63 U/L (46-116); ASPARTATE AMINO TRANSFERASE 16 U/L (15-37); BILIRUBIN,TOTAL 0.3 MG/DL (0.2-1.0); CKMB 0.9 NG/ML (0.0-3.6); CREATINE KINASE 246 U/L (26-308)
[2018-04-24] MEDS ORDERED: Fluconazole 100mg tab ORAL ONE (15:45)
[2018-04-24] MEDS ORDERED: Azithromycin 250mg tab ORAL ONE (15:45)
[2018-04-24 16:16] VITALS: BP 94/43
[2018-04-24] MEDS ORDERED: ZITHROMAX250 MG ORAL (16:42)
--- NOTE | 2018-04-24 16:43 | Emergency Room Report ---
History of Present Illness General Chief Complaint: Flu Like Symptoms Source: Patient Present Illness HPI 38-year-old female patient presents ER with multiple complaints. Patient complaining of purulent cough with green mucus, denies hemoptysis. states cough is causing her pain. reports one episode of vomiting, denies hematemesis, reports chronic occurred after coughing, denies recent travel or new foods, denies contacts with similar symptoms. Reports sore throat during this time. Denies chest pain, shortness of breath, abdominal pain. Reports fever during this time, patient is fever in the ER. Denies recent travel or smoking. Denies recent immobilization or history of cancer. Denies Pain. Denies history of asthma or OK. states is not taking blood thinners. denies neck or calf pain. reports history of bronchitis, has inhaler medications that she uses. Allergies: Coded Allergies: No Known Allergies (Verified Allergy, Unknown, 04/10/07) Patient History Past Medical History: see triage record Last Menstrual Period: months ago Reviewed Nursing Documentation: PMH: Agreed; PSxH: Agreed Nursing Documentation-PMH Past Medical History: No History, Except For Hx Cardiac Problems: Yes - Hyperlipidimia, Cardiac cath ablation 2017. Hx Hypertension: Yes Hx Pacemaker: No Hx Asthma: Yes - Bronchitis Hx COPD: No Hx Diabetes: Yes Hx Cancer: No Hx Gastrointestinal Problems: No Hx Dialysis: No History Of Psychiatric Problem: No Hx Neurological Problems: No Hx Cerebrovascular Accident: No Hx Seizures: No Review of Systems All Other Systems: negative except mentioned in HPI Physical Exam Vital Signs Date Time Temp Pulse Resp B/P (MAP) Pulse Ox O2 Delivery O2 Flow Rate FiO2 04/24/18 13:35 102.3 103 22 136/76 93 Room Air 102.4 Sp02 EP Interpretation: reviewed, normal General Appearance: well appearing, no apparent distress, alert, GCS 15, non- toxic Head: normocephalic, atraumatic Eyes: bilateral eye normal inspection, bilateral eye PERRL ENT: hearing grossly normal, normal pharynx, no angioedema, normal voice, TMs + canals normal, uvula midline, moist mucus membranes, nasal congestion, other - uvula midline Neck: full range of motion, no bony tend Respiratory: lungs clear, normal breath sounds, no rhonchi, no respiratory distress, no accessory muscle use, no wheezing, speaking full sentences Cardiovascular #1: regular rate, rhythm, no edema Gastrointestinal: non tender, soft, no mass, non-distended, no guarding, no rebound Genitourinary: no CVA tenderness Musculoskeletal: back normal, digits/nails normal, gait/station normal, normal range of motion, non-tender Neurologic: alert, oriented x3, responsive, motor strength/tone normal, sensory intact Psychiatric: mood/affect normal Skin: no rash Lymphatic: no adenopathy Medical Decision Making PA Attestation Dr. Thompson is my supervising Physician whom patient management has been discussed with. Diagnostic Impression: Primary Impression: Atypical pneumonia Additional Impression: Yeast UTI ER Course Pt. presents to the ED c/o cough, sore throat, vomiting, fever. Ddx considered but are not limited to viral URI, food poisoning, gastritis, pharyngitis, tonsillitis, pneumonia, OK, CHF, PE. no hemoptysis, no calf swelling, no recent travel or immobilization, negative Homans sign, low suspicion for PE. no abdominal tenderness to palpation, negative Rovsing, negative Plaza,No abdominal imaging at this time. Low suspicion for peritonsillar abscess, no neck stiffness, no hot potato voice , no stridor. no focal neuro deficits, cranial nerves intact status, does not require CT imaging of the head. Vital signs: are WNL, pt. is febrile, pulse mildly elevated, will continue to monitor. Patient provided with Tylenol. ER COURSE: Provided with pain medication and Zofran in ER. CBC shows elevation of white blood cell count, possible infection, likely causing fever CMP unremarkable, decreased potassium due to inhaler use and/or vomiting, does not require acute intervention at this time. Coag studies within normal limits Troponins negative, no elevation of BNP, low suspicion for OK or CHF exacerbation. UA shows a multiple epithelial cells, yeast present, will provide fluconazole in the ER. Flu swab negative EKG shows no ST elevations or arrhythmia Chest x-ray shows possible atelectasis or scarring in left lung base, per the official reading. Due to clinical presentation of patient with continued complaints of cough and elevated white blood cell count, will treat patient for atypical pneumonia provided first dose of azithromycin in the ER. Will provide Rx, begin taking medication tomorrow as first dose was provided in ER. Per heart score patient has low risk of cardiac event. discussed results of the patient, offered patient admission however states she was like to be treated outpatient. Patient able to tolerate by mouth fluids patient resting comfortably in no acute distress, nontoxic appearing, afebrile, texting on phone, able ambulate independently, okay for discharge to home. patient afebrile, vital stable, prior to discharge. DISCHARGE: Rx provided for azithromycin Rx provided for Tessalon Perles for cough. At this time pt is stable for d/c to home. Patient is resting comfortably, in no acute distress, nontoxic appearing, talking without difficulty. Patient to take medications as instructed Will provide with patient care instructions and any necessary prescriptions. Care plan and follow-up instructions provided. Patient instructed to follow-up with primary care provider in 3 - 5 days. Patient questions asked and answered. Patient reports understanding and agreement to treatment plan. ER precautions given. Patient instructed to return to ER immediately for any new or worsening of symptoms including but not limited to increasing SOB, persistent fever, chest pain, intractable vomiting. - Please note that this Emergency Department Report was dictated using AVSTband master technology software, occasionally this can lead to erroneous entry secondary to interpretation by the dictation equipment. Labs Test 04/24/18 14:36 White Blood Count 15.2 K/UL (4.8-10.8) Red Blood Count 4.94 M/UL (4.20-5.40) Hemoglobin 14.2 G/DL (12.0-16.0) Hematocrit 42.7 % (37.0-47.0) Mean Corpuscular Volume 86 FL (80-99) Mean Corpuscular Hemoglobin 28.8 PG (27.0-31.0) Mean Corpuscular Hemoglobin Concent 33.3 G/DL (32.0-36.0) Red Cell Distribution Width 12.2 % (11.6-14.8) Platelet Count 331 K/UL (150-450) Mean Platelet Volume 6.1 FL (6.5-10.1) Neutrophils (%) (Auto) 80.5 % (45.0-75.0) Lymphocytes (%) (Auto) 11.3 % (20.0-45.0) Monocytes (%) (Auto) 5.9 % (1.0-10.0) Eosinophils (%) (Auto) 1.6 % (0.0-3.0) Basophils (%) (Auto) 0.7 % (0.0-2.0) Prothrombin Time 10.4 SEC (9.30-11.50) Prothromb Time International Ratio 1.0 (0.9-1.1) Activated Partial Thromboplast Time 27 SEC (23-33) Urine Color Pale yellow Urine Appearance Turbid Urine pH 5 (4.5-8.0) Urine Specific [place] 1.005 (1.005-1.035) Urine Protein 3+ (NEGATIVE) Urine Glucose (UA) 4+ (NEGATIVE) Urine Ketones Negative (NEGATIVE) Urine Blood 1+ (NEGATIVE) Urine Nitrite Negative (NEGATIVE) Urine Bilirubin Negative (NEGATIVE) Urine Urobilinogen Normal MG/DL (0.0-1.0) Urine Leukocyte Esterase Negative (NEGATIVE) Urine RBC 2-4 /HPF (0 - 2) Urine WBC 2-4 /HPF (0 - 2) Urine Squamous Epithelial Cells Moderate /LPF (NONE/OCC) Urine Bacteria Few /HPF (NONE) Urine Yeast Occasional /HPF (NONE) Sodium Level 140 MMOL/L (136-145) Potassium Level 3.1 MMOL/L (3.5-5.1) Chloride Level 100 MMOL/L (98-107) Carbon Dioxide Level 30 MMOL/L (21-32) Anion Gap 10 mmol/L (5-15) Blood Urea Nitrogen 11 mg/dL (7-18) Creatinine 0.7 MG/DL (0.55-1.30) Estimat Glomerular Filtration Rate > 60 mL/min (>60) Glucose Level 115 MG/DL (74-106) Calcium Level 9.9 MG/DL (8.5-10.1) Total Bilirubin 0.3 MG/DL (0.2-1.0) Aspartate Amino Transf (AST/SGOT) 16 U/L (15-37) Alanine Aminotransferase (ALT/SGPT) 39 U/L (12-78) Alkaline Phosphatase 63 U/L (46-116) Total Creatine Kinase 246 U/L (26-308) Creatine Kinase MB 0.9 NG/ML (0.0-3.6) Creatine Kinase MB Relative Index 0.3 Troponin I 0.000 ng/mL (0.000-0.056) Pro-B-Type Natriuretic Peptide 21 pg/mL (0-125) Total Protein 8.4 G/DL (6.4-8.2) Albumin 3.8 G/DL (3.4-5.0) Globulin 4.6 g/dL Albumin/Globulin Ratio 0.8 (1.0-2.7) EKG Diagnostic Results Rate: normal Rhythm: NSR ST Segments: no acute changes Other Impression low voltage QRS ASA given to the pt in ED: No PA Scribe Text Rio Frazier PA-C Rhythm Strip Diag. Results EP Interpretation: yes Rate: 100 Rhythm: NSR, no PVC's, no ectopy PA Scribe Text Rio Frazier PA-C Chest X-Ray Diagnostic Results Chest X-Ray Diagnostic Results : Chest X-Ray Ordered: Yes # of Views/Limited/Complete: 1 View Indication: Chest Pain EP Interpretation: Yes PA Xray: Interpretation reviewed Interpretation: no consolidation, no effusion, no pneumothorax, other - atelectasis of left lower lung base Impression: Other PA Scribe Text Rio Frazier PA-C Last Vital Signs Date Time Temp Pulse Resp B/P (MAP) Pulse Ox O2 Delivery O2 Flow Rate FiO2 04/24/18 16:16 99.0 96 18 94/43 99 Room Air 99.0 Status: improved Disposition: HOME, SELF-CARE Condition: Stable Scripts Benzonatate* (TESSALON PERLE*) 100 Mg Capsule 100 MG ORAL THREE TIMES A DAY, #15 PERLE Prov: Ernesto Frazier 04/24/18 Azithromycin* (ZITHROMAX*) 250 Mg Tablet 250 MG ORAL DAILY for 4 Days, #4 TAB Prov: Ernesto Frazier 04/24/18 Referrals: HUANG DE LUNA,REFERRING (PCP) Patient Instructions: Community-Acquired Pneumonia, Adult, [id number], Nausea and Vomiting, Adult, [id number], Sore Throat, [id number]-[id number], Vaginal Yeast Infection, Adult Additional Instructions: Followup with primary care provider in 3 -5 days. Discuss further referral and treatment at that time. Discuss elevated CMP total protein in labs. Drink plenty of fluids. Take medications as directed. Begin abx tomorrow, first dose given in the ER. Patient questions asked and answered. ER precautions given, patient instructed to return to ER immediately for any new or worsening of symptoms. Ernesto Frazier Apr 24, 2018 16:43
[2018-04-24] MEDS ORDERED: Ketorolac 30mg Inj IM ONE (17:00)
[2018-04-24] MEDS ORDERED: TESSALON PERLE100 MG ORAL (17:06)
[2018-04-24 17:13] VITALS: BP 94/43
--- NOTE | 2018-04-30 16:33 | Cardiology Report ---
APPROVED REPORT EKG Measurement Heart [id number] Normal sinus rhythm Nonspecific T wave abnormality Abnormal ECG
== END 2018-04-24 17:15 | disposition home or self-care (01) ==
LOC: EMR 14:12
DX: J18.9 Pneumonia, unspecified organism (principal); B37.49 Other urogenital candidiasis; I10 Essential (primary) hypertension; E78.5 Hyperlipidemia, unspecified; E11.9 Type 2 diabetes mellitus without complications
CPT/HCPCS: 36415; 71045; 80053; 81003; 82550; 82553; 82962; 83880; 84484; 85025; 85610; 85730; 86710; 87086; 93005; 99284; Q0144

== ENCOUNTER 2018-05-09 23:08 | Emergency (ER) | payer MEDICAID ==
[~2018-05-09] VITALS: Ht 167.6 cm; Wt 120.7 kg
[~2018-05-09 23:08] MED LIST changes: +TESSALON PERLE100 MG ORAL; +ZITHROMAX250 MG ORAL
[2018-05-09] MEDS ORDERED: Ketorolac 30mg Inj IV ONE (23:30)
--- NOTE | 2018-05-09 23:32 | Emergency Room Report ---
History of Present Illness General Chief Complaint: Abdominal Pain Source: Patient, Medical Record Present Illness HPI Is a 38-year-old female with history of diabetes hypertension. She presents with chief complaint of cough, abdominal pain, nauseousness. She was seen here about a couple weeks ago and diagnosed with atypical pneumonia. Patient antibiotics. She is improving but still with coughing. Pain is mostly epigastric and left upper quadrant. No fever or chills. No nausea no vomiting. Coughing is nonproductive in nature. Pain is throbbing in nature. No diarrhea. Sometime coughing to the point of vomiting. Allergies: Coded Allergies: No Known Allergies (Verified Allergy, Unknown, 04/10/07) Patient History Past Medical History: see triage record, old chart reviewed, DM, HTN Past Surgical History: other Pertinent Family History: none Social History: Denies: smoking Last Menstrual Period: May Now: No Immunizations: other Reviewed Nursing Documentation: PMH: Agreed; PSxH: Agreed Nursing Documentation-PMH Hx Cardiac Problems: Yes - Hyperlipidimia, Cardiac cath ablation 2016. Hx Hypertension: Yes Hx Pacemaker: No Hx Asthma: Yes - Bronchitis Hx COPD: No Hx Diabetes: Yes Hx Cancer: No Hx Gastrointestinal Problems: No Hx Dialysis: No Hx Neurological Problems: No Hx Cerebrovascular Accident: No Hx Seizures: No Review of Systems Eye: Denies: eye pain, blurred vision ENT: Denies: ear pain, nose congestion, throat swelling Respiratory: Reports: cough; Denies: shortness of breath Cardiovascular: Denies: chest pain, palpitations Gastrointestinal: Reports: abdominal pain, nausea, vomiting; Denies: diarrhea Musculoskeletal: Denies: back pain, joint pain Skin: Denies: rash Neurological: Denies: headache, numbness Endocrine: Denies: increased thirst, increased urine Hematologic/Lymphatic: Denies: easy bruising All Other Systems: negative except mentioned in HPI Physical Exam Vital Signs Date Time Temp Pulse Resp B/P (MAP) Pulse Ox O2 Delivery O2 Flow Rate FiO2 05/09/18 23:11 98.5 78 18 112/79 92 Room Air 98.4 vitals normal except for hypoxia. Repeat pulse ox 97% on room air Sp02 EP Interpretation: reviewed, normal General Appearance: well appearing, no apparent distress, alert, obese Head: normocephalic, atraumatic Eyes: bilateral eye PERRL, bilateral eye EOMI ENT: hearing grossly normal, normal pharynx Neck: full range of motion, supple, no meningismus Respiratory: chest non-tender, lungs clear, normal breath sounds Cardiovascular #1: regular rate, rhythm, no murmur Gastrointestinal: normal bowel sounds, no mass, no organomegaly, no bruit, non- distended, tenderness - left upper quadrant Musculoskeletal: back normal, gait/station normal, normal range of motion Neurologic: alert, oriented x3 Psychiatric: mood/affect normal Skin: warm/dry Medical Decision Making Diagnostic Impression: Primary Impression: Acute bronchitis with bronchospasm Additional Impressions: Hypokalemia Abdominal pain Qualified Codes: R10.84 - Generalized abdominal pain Ovarian mass, left ER Course Patient presents with abdominal pain and coughing for 2 weeks. No evidence of pneumonia. She is currently taking steroid inhalers along with albuterol. We' ll going put on steroid. She does have hypokalemia is currently taking Inocor thiazide. We'll going put her on potassium also. She has an ovarian mass most likely a cyst. No pain in the lower quadrant. We'll discharge home with follow -up outpatient testing. CT/MRI/US Diagnostic Results CT/MRI/US Diagnostic Results : Imaging Test Ordered: Ct a/p Impression Read by radiologist. Left ovarian mass. Fatty liver. No obstruction. Last Vital Signs Date Time Temp Pulse Resp B/P (MAP) Pulse Ox O2 Delivery O2 Flow Rate FiO2 05/09/18 23:11 98.5 78 18 112/79 92 Room Air 98.4 Status: improved Disposition: HOME, SELF-CARE Condition: Stable Scripts Potassium Chloride* (K-DUR*) 10 Meq Capsule.er 10 MEQ ORAL DAILY, #30 TAB 0 Refills Prov: MAGUE ALFARO M.D. 05/10/18 Prednisone* (PREDNISONE*) 20 Mg Tablet 40 MG ORAL DAILY, #10 TAB Prov: MAGUE ALFARO M.D. 05/10/18 Referrals: HUANG DE LUNA,REFERRING (PCP) Patient Instructions: Abdominal Pain, Adult Additional Instructions: Follow-up your doctor in 7 days. Return if symptom worsen. You would need further workup on the ovarian mass/cyst on the left side that was seen on CT scan. MAGUE ALFARO M.D. May 09, 2018 23:32
[2018-05-09 23:55] LABS: APPEARANCE,URINE SLIGHTLY CLOUDY; BILIRUBIN, URINE NEGATIVE (NEGATIVE); COLOR,URINE RED; GLUCOSE, URINE (UA) 4+ (NEGATIVE); KETONES,URINE NEGATIVE (NEGATIVE); LEUKOCYTE ESTERASE ,URINE 1+ (NEGATIVE); NITRITE,URINE NEGATIVE (NEGATIVE); PH,URINE 5 (4.5-8.0); PROTEIN,URINE 3+ (NEGATIVE); UROBILINOGEN,URINE NORMAL MG/DL (0.0-1.0)
[2018-05-10 00:04] VITALS: BP 113/69
[2018-05-10 00:25] LABS: EOSINOPHILS % (AUTO) 3.3 % (0.0-3.0); HEMATOCRIT 38.4 % (37.0-47.0); HEMOGLOBIN 13.4 G/DL (12.0-16.0); MEAN CORPUSCULAR VOLUME 84 FL (80-99); MONOCYTES % (AUTO) 6.8 % (1.0-10.0); NEUTROPHILS % (AUTO) 58.8 % (45.0-75.0); PLATELET COUNT 407 K/UL (150-450); RED BLOOD COUNT 4.57 M/UL (4.20-5.40); RED CELL DISTRIBUTION WIDTH 11.8 % (11.6-14.8); WHITE BLOOD COUNT 12.6 K/UL (4.8-10.8)
[2018-05-10 00:44] LABS: ALANINE AMINOTRANSFERASE 33 U/L (12-78); ALBUMIN 3.3 G/DL (3.4-5.0); ALBUMIN/GLOBULIN RATIO 0.7 (1.0-2.7); ALKALINE PHOSPHATASE 69 U/L (46-116); ANION GAP 11 mmol/L (5-15); ASPARTATE AMINO TRANSFERASE 17 U/L (15-37); BILIRUBIN,TOTAL 0.3 MG/DL (0.2-1.0); BLOOD UREA NITROGEN 12 mg/dL (7-18); CALCIUM 9.4 MG/DL (8.5-10.1); CARBON DIOXIDE 29 MMOL/L (21-32); CHLORIDE 103 MMOL/L (98-107); CREATININE 0.7 MG/DL (0.55-1.30); POTASSIUM 2.8 MMOL/L (3.5-5.1); SODIUM 142 MMOL/L (136-145)
--- NOTE | 2018-05-10 01:06 | Diagnostic Imaging Report ---
PROCEDURE: CT ABDOMEN + PELVIS Without Contrast HISTORY: 38-year-old female with abdominal pain. COMPARISON: CT abdomen and pelvis 10/18/2015 TECHNIQUE: CT imaging was obtained through the abdomen and pelvis. Coronal and sagittal reformations were performed. DOSE: Total Exam volume computed tomography dose index (CTDIvol) = 33.02 mGy and Dose Length Product (DLP) = 1807 mGY-cm. One or more of the following dose reduction techniques were used: automated exposure control, adjustment of the mA and/or kV according to patient size, use of iterative reconstruction technique. FINDINGS: Evaluation is limited without contrast. Lower thorax: Bilateral atelectasis. There is a small right lower lobe air cyst. Abdomen: The liver demonstrates diffuse low density, likely due to hepatic steatosis. The liver is markedly enlarged with the right lobe measuring approximately 25 centimeters in cranial caudal dimension. Cholecystectomy clips are identified in the gallbladder fossa. The spleen, pancreas, and bilateral adrenal glands are unremarkable. The left kidney is unremarkable. An approximately 7.4 centimeter right renal cyst is redemonstrated and is mildly increased in size as compared to prior. There are adjacent nonobstructive right renal calcifications, the largest measuring approximately 5 millimeters.. Evaluation of the GI tract is limited by lack of distention and retained stool. No bowel obstruction. Unremarkable appendix. There are a few mildly enlarged right lower quadrant mesenteric lymph nodes which are similar to prior. No free fluid. No free air. The abdominal vasculature is unremarkable. There is a small fat-containing periumbilical hernia. Pelvis: The urinary bladder is unremarkable for degree of distension. The uterus is identified. There is a new, approximately 9 centimeter incompletely characterized low density pelvic mass which is likely ovarian. If further imaging evaluation is clinically desired, pelvic sonography may be considered. No free fluid, free air or significant pelvic adenopathy. The pelvic vasculature is unremarkable. Bones: Degenerative changes in the spine and pelvis IMPRESSION: 1. There is a new, approximately 9 centimeter incompletely characterized low density pelvic mass which is likely ovarian. If further imaging evaluation is clinically desired, pelvic sonography may be considered. 2. The liver demonstrates diffuse low density, likely due to hepatic steatosis. Marked hepatomegaly. 3. Nonobstructive right renal calcifications, the largest measuring approximately 5 millimeters.. 4. Other findings as above.
[2018-05-10] MEDS ORDERED: POTASSIUM CHLO10 MEQ ORAL (01:27)
[2018-05-10] MEDS ORDERED: PREDNISONE20 MG ORAL (01:27)
[2018-05-10 01:45] VITALS: BP 116/72
== END 2018-05-10 01:45 | disposition home or self-care (01) ==
LOC: EMR 23:23
DX: J20.9 Acute bronchitis, unspecified (principal); J45.909 Unspecified asthma, uncomplicated; I10 Essential (primary) hypertension; E78.5 Hyperlipidemia, unspecified
CPT/HCPCS: 36415; 74176; 80053; 81003; 81025; 83690; 85025; 96361; 96374; 96375; 99284; J1885; J2405; J8499

== ENCOUNTER 2018-06-01 23:18 | Emergency (ER) | payer MEDICAID ==
[~2018-06-01] VITALS: Ht 162.6 cm; Wt 120.2 kg
[~2018-06-01 23:18] MED LIST changes: +POTASSIUM CHLO10 MEQ ORAL
[2018-06-01 23:32] VITALS: BP 129/65
[2018-06-02] MEDS ORDERED: IBUPROFEN600 MG ORAL (00:31)
[2018-06-02 00:38] VITALS: BP 130/80
--- NOTE | 2018-06-02 00:39 | Emergency Room Report ---
History of Present Illness General Chief Complaint: General Complaint Source: Patient Present Illness HPI Patient presents with pain and discomfort to the left foot Reports that taking steps worsens the pain At times also at rest Denies any fall or trauma denies any calf pain denies any leg swelling Denies any pelvic discomfort The discomfort has been ongoing for past several months Allergies: Coded Allergies: No Known Allergies (Verified Allergy, Unknown, 04/10/07) Patient History Past Medical History: see triage record Pertinent Family History: none Now: No Reviewed Nursing Documentation: PMH: Agreed; PSxH: Agreed Nursing Documentation-PMH Hx Cardiac Problems: Yes - Hyperlipidimia, Cardiac cath ablation 2017. Hx Hypertension: Yes Hx Pacemaker: No Hx Asthma: Yes - Bronchitis Hx COPD: No Hx Diabetes: Yes Hx Cancer: No Hx Gastrointestinal Problems: No Hx Dialysis: No Hx Neurological Problems: No Hx Cerebrovascular Accident: No Hx Seizures: No Review of Systems All Other Systems: negative except mentioned in HPI Physical Exam Vital Signs Date Time Temp Pulse Resp B/P (MAP) Pulse Ox O2 Delivery O2 Flow Rate FiO2 06/01/18 23:25 98.2 78 16 129/65 99 Room Air 98.2 Sp02 EP Interpretation: reviewed, normal General Appearance: well appearing, no apparent distress Head: normocephalic, atraumatic Eyes: bilateral eye PERRL, bilateral eye EOMI ENT: hearing grossly normal, normal pharynx Neck: full range of motion, supple Respiratory: lungs clear Cardiovascular #1: regular rate, rhythm Gastrointestinal: non tender Musculoskeletal: normal inspection Neurologic: alert, oriented x3 Skin: other - Left foot medial aspect, there are some varicose veins noted tender to palpation, no obvious phlebitis no erythema neurovascularly intact, Lymphatic: no adenopathy Medical Decision Making Diagnostic Impression: Primary Impression: varicose vein ER Course Clinical exam and history is consistent with varicose veins likely irritated There was some mild discomfort on palpation specifically Otherwise no sign of any infectious pathology Consideration for DVT and other emergent pathology is made however the patient is stable for close outpatient follow-up Last Vital Signs Date Time Temp Pulse Resp B/P (MAP) Pulse Ox O2 Delivery O2 Flow Rate FiO2 06/01/18 23:32 98.2 16 129/65 99 Room Air 98.2 06/01/18 23:25 78 Status: improved Disposition: HOME, SELF-CARE Condition: Stable Scripts Ibuprofen* (MOTRIN*) 600 Mg Tablet 600 MG ORAL THREE TIMES A DAY, #20 TAB 0 Refills Prov: Hugo Pickering DO 06/02/18 Referrals: NON PHYSICIAN (PCP) Patient Instructions: Varicose Veins Additional Instructions: Patient is provided with the discharge instructions notified to follow up with primary doctor in the next 2-3 days otherwise return to the er with any worsening symptoms. Please note that this report is being documented using DRAGON technology. This can lead to erroneous entry secondary to incorrect interpretation by the dictating instrument. Hugo Pickering DO Jun 02, 2018 00:39
== END 2018-06-02 00:52 | disposition home or self-care (01) ==
LOC: EMR 23:37
DX: I83.92 Asymptomatic varicose veins of left lower extremity (principal); I10 Essential (primary) hypertension; E78.5 Hyperlipidemia, unspecified
CPT/HCPCS: 99283

== ENCOUNTER 2018-08-14 05:11 | Emergency (ER) | payer MEDICAID ==
[~2018-08-14] VITALS: Ht 167.6 cm; Wt 122.5 kg
[2018-08-14 05:25] VITALS: BP 138/90
[2018-08-14] MEDS ORDERED: Norco 5mg/325mg tab ORAL ONE (05:45)
--- NOTE | 2018-08-14 05:46 | Emergency Room Report ---
History of Present Illness General Chief Complaint: Back Pain-No Injury Source: Patient Present Illness HPI Is a 38-year-old female with multiple medical problem including obesity. She presents with chief complaint of lower back pain. Onset for last 3 days. Achy in nature. No trauma. No fever chills but no incontinence of bowel or urine. No radiation. Denies any other complaint. No neurological deficit. Pain is 8 out of 10. Achy nature. Allergies: Coded Allergies: No Known Allergies (Verified Allergy, Unknown, 04/10/07) Patient History Past Medical History: see triage record, old chart reviewed, DM, HTN Past Surgical History: other Pertinent Family History: none Social History: Denies: smoking Last Menstrual Period: UNK Now: No : 3 Para: 2 Immunizations: other Reviewed Nursing Documentation: PMH: Agreed; PSxH: Agreed Nursing Documentation-PMH Hx Cardiac Problems: Yes - Hyperlipidimia, Cardiac cath ablation 2016. Hx Hypertension: Yes Hx Pacemaker: No Hx Asthma: Yes - Bronchitis Hx COPD: No Hx Diabetes: Yes Hx Cancer: No Hx Gastrointestinal Problems: No Hx Dialysis: No Hx Neurological Problems: No Hx Cerebrovascular Accident: No Hx Seizures: No Review of Systems Eye: Denies: eye pain, blurred vision ENT: Denies: ear pain, nose congestion, throat swelling Respiratory: Denies: cough, shortness of breath Cardiovascular: Denies: chest pain, palpitations Gastrointestinal: Denies: abdominal pain, diarrhea, nausea, vomiting Musculoskeletal: Reports: back pain; Denies: joint pain Skin: Denies: rash Neurological: Denies: headache, numbness Endocrine: Denies: increased thirst, increased urine Hematologic/Lymphatic: Denies: easy bruising All Other Systems: negative except mentioned in HPI Physical Exam Vital Signs Date Time Temp Pulse Resp B/P (MAP) Pulse Ox O2 Delivery O2 Flow Rate FiO2 08/14/18 05:15 97.7 72 16 138/90 97 Room Air vitals unremarkable Sp02 EP Interpretation: reviewed, normal General Appearance: well appearing, no apparent distress, alert, obese Head: normocephalic, atraumatic Eyes: bilateral eye PERRL, bilateral eye EOMI ENT: hearing grossly normal, normal pharynx Neck: full range of motion, supple, no meningismus Respiratory: chest non-tender, lungs clear, normal breath sounds Cardiovascular #1: regular rate, rhythm, no murmur Gastrointestinal: normal bowel sounds, non tender, no mass, no organomegaly, no bruit, non-distended Musculoskeletal: back normal, gait/station normal, normal range of motion, tender - Lower lumbar tenderness. No anesthesia Neurologic: alert, oriented x3 Psychiatric: mood/affect normal Skin: warm/dry Medical Decision Making Diagnostic Impression: Primary Impression: Back pain Qualified Codes: M54.5 - Low back pain ER Course Patient presents with lower back pain. No evidence of any trauma. No evidence of cauda equina syndrome, spinal after abscess or neoplastic process. We'll discharge home. Last Vital Signs Date Time Temp Pulse Resp B/P (MAP) Pulse Ox O2 Delivery O2 Flow Rate FiO2 08/14/18 05:25 97.7 89 16 138/90 97 Room Air Status: improved Disposition: HOME, SELF-CARE Condition: Stable Scripts Ibuprofen* (MOTRIN*) 600 Mg Tablet 600 MG ORAL THREE TIMES A DAY, #30 TAB 0 Refills Prov: Logan Gaona MD 08/14/18 Hydrocodone/Acetaminophen 5-325* (HYDROCODONE/ACETAMINOPHEN 5-325*) 1 Each Tablet 1 TAB ORAL Q6H PRN for For Pain, #15 TAB 0 Refills Prov: Logan Gaona MD 08/14/18 Patient Instructions: Back Pain, Adult Additional Instructions: Follow-up with your doctor in 7 days. Return if symptom worsen. Logan Gaona MD Aug 14, 2018 05:46
[2018-08-14] MEDS ORDERED: HYDROCODON-ACE1 EA15 ORAL (05:47)
[2018-08-14] MEDS ORDERED: IBUPROFEN600 MG ORAL (05:47)
[2018-08-14 06:07] VITALS: BP 138/90
== END 2018-08-14 06:08 | disposition home or self-care (01) ==
LOC: EMR 05:50
DX: M54.5 Low back pain (principal); I10 Essential (primary) hypertension; E78.5 Hyperlipidemia, unspecified; J45.909 Unspecified asthma, uncomplicated; E11.9 Type 2 diabetes mellitus without complications
CPT/HCPCS: 99283

== ENCOUNTER 2018-09-04 18:00 | Emergency (ER) | payer MEDICAID ==
[~2018-09-04] VITALS: Ht 167.6 cm; Wt 122.5 kg
[2018-09-04 18:26] VITALS: BP 127/83
--- NOTE | 2018-09-04 18:26 | NUR ---
ED Nurse Note: Pt walked in c/o lower back pain x 2 days but denies any recent injury or trauma. Pt AA&ox4, gcs=15, skin warm and dry, resp even and unlabored, -n/v/d, ambulates w/ steady gait. Will cont monitor. VSS.
[2018-09-04 19:25] LABS: APPEARANCE,URINE CLEAR; BILIRUBIN, URINE NEGATIVE (NEGATIVE); COLOR,URINE PALE YELLOW; GLUCOSE, URINE (UA) 4+ (NEGATIVE); KETONES,URINE NEGATIVE (NEGATIVE); LEUKOCYTE ESTERASE ,URINE NEGATIVE (NEGATIVE); NITRITE,URINE NEGATIVE (NEGATIVE); PH,URINE 5 (4.5-8.0); PROTEIN,URINE 2+ (NEGATIVE); UROBILINOGEN,URINE NORMAL MG/DL (0.0-1.0)
--- NOTE | 2018-09-04 19:50 | Emergency Room Report ---
History of Present Illness General Chief Complaint: Back Pain-No Injury Source: Patient Present Illness HPI 38-year-old female presents to the emergency department complaining of 10 out of 10 in severity low back pain that is primarily on the right side 2 days. Patient states that she was recently seen for the same symptoms and was prescribed tramadol which she took and she states did not work. Patient states that her pain shoots down the posterior right leg intermittently. Patient denies trauma or fall she denies fevers, chills, recent spinal procedures, history of cancer or saddle anesthesia. She denies urinary incontinence or retention. Patient denies frequency, urgency, hematuria or dysuria. Allergies: Coded Allergies: No Known Allergies (Verified Allergy, Unknown, 04/10/07) Patient History Past Medical History: see triage record Past Surgical History: none Pertinent Family History: none Now: No Reviewed Nursing Documentation: PMH: Agreed; PSxH: Agreed Nursing Documentation-PMH Past Medical History: No History, Except For Hx Cardiac Problems: Yes - Hyperlipidimia, Cardiac cath ablation 2016. Hx Hypertension: Yes Hx Pacemaker: No Hx Asthma: Yes - Bronchitis Hx COPD: No Hx Diabetes: Yes Hx Cancer: No Hx Gastrointestinal Problems: No Hx Dialysis: No Hx Neurological Problems: No Hx Cerebrovascular Accident: No Hx Seizures: No Review of Systems All Other Systems: negative except mentioned in HPI Physical Exam Vital Signs Date Time Temp Pulse Resp B/P (MAP) Pulse Ox O2 Delivery O2 Flow Rate FiO2 09/04/18 18:06 98.2 71 20 127/83 98 Room Air Sp02 EP Interpretation: reviewed, normal General Appearance: no apparent distress, alert, GCS 15, non-toxic, obese Head: normocephalic, atraumatic Eyes: bilateral eye normal inspection, bilateral eye PERRL ENT: hearing grossly normal, normal voice Neck: full range of motion Respiratory: lungs clear, normal breath sounds, speaking full sentences Cardiovascular #1: regular rate, rhythm Gastrointestinal: non tender, soft, no guarding Genitourinary: normal inspection, no CVA tenderness Musculoskeletal: back normal, gait/station normal, normal range of motion, tender - Mild Tenderness to palpation to paraspinal muscles of the lower back bilaterally, but Right > Left, without midline tenderness. No step-offs, or obvious deformities. Neurologic: alert, oriented x3, responsive, motor strength/tone normal, sensory intact, normal gait, speech normal, grossly normal Psychiatric: judgement/insight normal Skin: normal color, no rash, warm/dry, well hydrated Medical Decision Making PA Attestation Dr. Monroy is my supervising Physician whom patient management has been discussed with. Diagnostic Impression: Primary Impression: Back pain Qualified Codes: M54.41 - Lumbago with sciatica, right side ER Course 38-year-old female presents to the emergency department complaining of 10 out of 10 in severity low back pain that is primarily on the right side 2 days. Patient states that she was recently seen for the same symptoms and was prescribed tramadol which she took and she states did not work. Patient states that her pain shoots down the posterior right leg intermittently. Patient denies trauma or fall she denies fevers, chills, recent spinal procedures, history of cancer or saddle anesthesia. She denies urinary incontinence or retention. Patient denies frequency, urgency, hematuria or dysuria. Ddx considered: epidural abscess, fracture, sprain/strain, meningitis, spinal chord injury, sciatica, cauda equina, Pyelonephritis, renal calculi just to name a few. Vital signs reviewed and are WNL during ED visit. Pt. is afebrile with no signs of infection No new symptoms, and denies recent trauma. No saddle anesthesia noted, Pt. denies incontinence Neurovascular is intact ROM is limited due to pain Mild Tenderness to palpation to paraspinal muscles of the lower back bilaterally, but Right > Left, without midline tenderness. ORDERS: -UA: Unremarkable INTERVENTIONS: - Soma PO D/W Pt. that for further pain management is it recommended to consult PCP or a Pain management doctor. -I do not identify an emergent condition at this time. With current presentation , pt. is stable for close outpatient follow up and conservative treatment. D/ w pt. to return promptly to ED with worsening or new symptoms.- Pt. verbalizes' understanding and agreement with proposed treatment plan.proposed treatment plan. DISCHARGE: At this time pt. is stable for d/c to home. Will provide printed patient care instructions, and any necessary prescriptions. Care plan and follow up instructions have been discussed with the patient prior to discharge. Labs Test 09/04/18 19:00 Urine Color Pale yellow Urine Appearance Clear Urine pH 5 (4.5-8.0) Urine Specific [place] 1.015 (1.005-1.035) Urine Protein 2+ (NEGATIVE) Urine Glucose (UA) 4+ (NEGATIVE) Urine Ketones Negative (NEGATIVE) Urine Blood 3+ (NEGATIVE) Urine Nitrite Negative (NEGATIVE) Urine Bilirubin Negative (NEGATIVE) Urine Urobilinogen Normal MG/DL (0.0-1.0) Urine Leukocyte Esterase Negative (NEGATIVE) Urine RBC 0-2 /HPF (0 - 2) Urine WBC 0-2 /HPF (0 - 2) Urine Squamous Epithelial Cells Moderate /LPF (NONE/OCC) Urine Bacteria None /HPF (NONE) Last Vital Signs Date Time Temp Pulse Resp B/P (MAP) Pulse Ox O2 Delivery O2 Flow Rate FiO2 09/04/18 18:26 98.2 68 18 127/83 98 Room Air Disposition: HOME, SELF-CARE Condition: Stable Scripts Lidocaine (Lidoderm) 1 Each Adh..patch 1 PATCH TOPIC DAILY, #30 PATCH 0 Refills Patch(es) may remain in place for up to 12 hours in any 24-hour period. Prov: Chelsea Morales 09/04/18 Methocarbamol* (ROBAXIN-750*) 750 Mg Tablet 750 MG PO QID, #28 TAB 0 Refills Prov: Chelsea Morales 09/04/18 Referrals: HUANG DE LUNA,REFERRING (PCP) Patient Instructions: Sciatica Additional Instructions: Take medications as directed. Follow up with a Primary Care Provider in 3-5 days, even if your symptoms have resolved. --Please review list of primary care clinics, if you do not already have a primary care provider Return sooner to ED if new symptoms occur, or current symptoms become worse. Do not drink alcohol, drive, or operate heavy machinery while taking Robaxin ( Muscle Relaxers) as this may cause drowsiness. - Please note that this Emergency Department Report was dictated using [employer] supervisor technology software, occasionally this can lead to erroneous entry secondary to interpretation by the dictation equipment. Chelsea Morales Sep 04, 2018 19:49
[2018-09-04] MEDS ORDERED: LIDODERM700 M1 TOPIC (19:53)
[2018-09-04] MEDS ORDERED: ROBAXIN-750750 MG PO (19:53)
[2018-09-04 20:07] VITALS: BP 121/68
--- NOTE | 2018-09-04 20:07 | NUR ---
ED Nurse Note: Pt discharge instruction provided w/ prescription, id band removed, pt education done via discussion and handout, pt verbalized understanding and agrees with plan, pt advised to follow up with pcp regarding pt's condition, pt advised to return to ed if s/s worsen or new s/s develop.
== END 2018-09-04 20:07 | disposition home or self-care (01) ==
LOC: EMR 18:20
DX: M54.41 Lumbago with sciatica, right side (principal); I10 Essential (primary) hypertension; E11.9 Type 2 diabetes mellitus without complications
CPT/HCPCS: 81003; 99283

== ENCOUNTER 2018-10-17 14:43 | Emergency (ER) | payer MEDICAID ==
[~2018-10-17] VITALS: Ht 167.6 cm; Wt 127.0 kg
[~2018-10-17 14:43] MED LIST changes: +LIDODERM700 M1 TOPIC; +ROBAXIN-750750 MG PO
[2018-10-17 15:17] VITALS: BP 127/89
--- NOTE | 2018-10-17 15:20 | NUR ---
ED Nurse Note: AMBULATED IN TO ER DUE TO NV/D AND GENERALIZED BODYACHE, VAGINAL IRRITATION X3 DAYS.
[2018-10-17] MEDS ORDERED: Dicyclomine HCl 10mg/5ml oral soln ORAL ONE (15:30)
[2018-10-17 16:07] LABS: APPEARANCE,URINE CLEAR; BILIRUBIN, URINE NEGATIVE (NEGATIVE); COLOR,URINE PALE YELLOW; GLUCOSE, URINE (UA) 4+ (NEGATIVE); KETONES,URINE 1+ (NEGATIVE); LEUKOCYTE ESTERASE ,URINE NEGATIVE (NEGATIVE); NITRITE,URINE NEGATIVE (NEGATIVE); PH,URINE 5 (4.5-8.0); PROTEIN,URINE 3+ (NEGATIVE); UROBILINOGEN,URINE NORMAL MG/DL (0.0-1.0)
--- NOTE | 2018-10-17 16:48 | Emergency Room Report ---
History of Present Illness General Chief Complaint: Nausea, Vomiting, and Diarrhea Source: Medical Record Present Illness Allergies: Coded Allergies: No Known Allergies (Verified Allergy, Unknown, 04/10/07) Patient History Now: No : 3 Para: 2 Nursing Documentation-PMH Hx Cardiac Problems: Yes - Hyperlipidimia, Cardiac cath ablation 2016. Hx Hypertension: Yes Hx Pacemaker: No Hx Asthma: Yes - Bronchitis Hx COPD: No Hx Diabetes: Yes Hx Cancer: No Hx Gastrointestinal Problems: No Hx Dialysis: No Hx Neurological Problems: No Hx Cerebrovascular Accident: No Hx Seizures: No Physical Exam Vital Signs Date Time Temp Pulse Resp B/P (MAP) Pulse Ox O2 Delivery O2 Flow Rate FiO2 10/17/18 15:13 98.2 76 16 127/89 97 Room Air Medical Decision Making Diagnostic Impression: Primary Impression: Nausea, vomiting, and diarrhea Additional Impression: Vaginitis Qualified Codes: N76.0 - Acute vaginitis Last Vital Signs Date Time Temp Pulse Resp B/P (MAP) Pulse Ox O2 Delivery O2 Flow Rate FiO2 10/17/18 15:17 98.2 78 16 127/89 97 Room Air Disposition: HOME, SELF-CARE Condition: Stable Referrals: NON PHYSICIAN (PCP) Patient Instructions: Diarrhea, Adult, [id number], Nausea and Vomiting, Adult , [id number] Additional Instructions: Take medications as directed. Follow up with a Primary Care Provider in 3-5 days, even if your symptoms have resolved. --Please review list of primary care clinics, if you do not already have a primary care provider Return sooner to ED if new symptoms occur, or current symptoms become worse. - Please note that this Emergency Department Report was dictated using [employer] plant operator technology software, occasionally this can lead to erroneous entry secondary to interpretation by the dictation equipment. Chelsea Morales Oct 17, 2018 16:48
[2018-10-17] MEDS ORDERED: ZOFRAN4 M3 ORAL (16:50)
[2018-10-17] MEDS ORDERED: ZANTAC150 MG ORAL (16:50)
[2018-10-17] MEDS ORDERED: FLUCONAZOLE100 MG ORAL (16:50)
[2018-10-17] MEDS ORDERED: DICYCLOMINE HCL10 MG PO (16:50)
[2018-10-17 17:16] VITALS: BP 127/89
--- NOTE | 2018-10-17 17:17 | NUR ---
ER Nurse Note: A/OX4. PT IS CLEARED BY SACHA HASTINGS. DC INSTRUCTION AND PRESCRIPTIONS GIVEN, PT VERBALIZED UNDERSTSANDING. IV/ID WRISTBAND REMOVED. ALL BELONGINGS TAKEN BY PT. DENIES ANY PAIN AT THIS TIME. PT AMBULATED OUT OF ER WITH STEADY GAIT.
== END 2018-10-17 17:17 | disposition home or self-care (01) ==
LOC: EMR 15:55
DX: R11.2 Nausea with vomiting, unspecified (principal); R19.7 Diarrhea, unspecified; N76.0 Acute vaginitis; I10 Essential (primary) hypertension; E78.5 Hyperlipidemia, unspecified; E11.9 Type 2 diabetes mellitus without complications
CPT/HCPCS: 81003; 81025; 96360; 99284

== ENCOUNTER 2018-10-28 07:55 | Emergency (ER) | payer MEDICAID ==
[~2018-10-28] VITALS: Ht 167.6 cm; Wt 99.8 kg
[~2018-10-28 07:55] MED LIST changes: +DICYCLOMINE HCL10 MG PO; +ZANTAC150 MG ORAL; +ZOFRAN4 M3 ORAL
[2018-10-28] MEDS ORDERED: GLIPIZIDE5 MG ORAL (08:08)
--- NOTE | 2018-10-28 08:10 | NUR ---
ED Nurse Note: Mask provided.
[2018-10-28 08:12] VITALS: BP 117/77
--- NOTE | 2018-10-28 08:14 | NUR ---
ED Nurse Note: pt walked in to ED from work due to flu like sx for over 1 week. 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 c/o intermittent dry cough, headache, bodyache, and feeling weak. breath sounds clear. respirations even and non-labored noted. skin warm to touch. no open wound noted. AAO x4. ambulatory with steady gait. mask provide. will wait for the further order.
[2018-10-28] MEDS ORDERED: AUGMENTIN 875-1 EAC1 ORAL (08:49)
[2018-10-28] MEDS ORDERED: ZOFRAN4 M1 ORAL (08:49)
[2018-10-28 08:57] VITALS: BP 117/77
--- NOTE | 2018-10-28 08:58 | NUR ---
ER DISCHARGE NOTE: Patient is cleared to be discharged per ERMD, pt is aox4, on room air, with stable vital signs. pt was given dc and prescription instructions, pt was able to verbalize understanding, pt id band removed without complications. pt is able to ambulate with steady gait. pt took all belongings.
--- NOTE | 2018-10-28 08:59 | Emergency Room Report ---
History of Present Illness General Chief Complaint: Flu Like Symptoms Source: Patient Present Illness HPI patient presents with complaints that her symptoms of her cough congestion have been worsening Patient reports that she was here recently With initially vomiting and diarrhea now patient is feeling worse with frontal sinus headache Ongoing cough patient was at work and was sent in for further evaluation Denies any fevers denies any photophobia Allergies: Coded Allergies: No Known Allergies (Verified Allergy, Unknown, 04/10/07) Patient History Past Medical History: see triage record Pertinent Family History: none Last Menstrual Period: unknown Reviewed Nursing Documentation: PMH: Agreed; PSxH: Agreed Nursing Documentation-PMH Past Medical History: No History, Except For Hx Cardiac Problems: Yes - Hyperlipidimia, Cardiac cath ablation 2017. Hx Hypertension: Yes Hx Pacemaker: No Hx Asthma: Yes - Bronchitis Hx COPD: No Hx Diabetes: Yes Hx Cancer: No Hx Gastrointestinal Problems: No Hx Dialysis: No History Of Psychiatric Problem: No Hx Neurological Problems: No Hx Cerebrovascular Accident: No Hx Seizures: No Review of Systems All Other Systems: negative except mentioned in HPI Physical Exam Vital Signs Date Time Temp Pulse Resp B/P (MAP) Pulse Ox O2 Delivery O2 Flow Rate FiO2 10/28/18 08:02 97.5 74 15 117/77 94 Room Air Sp02 EP Interpretation: reviewed, normal General Appearance: well appearing, no apparent distress Head: normocephalic, atraumatic Eyes: bilateral eye PERRL, bilateral eye EOMI ENT: hearing grossly normal, TMs + canals normal, uvula midline, pharyngeal erythema Neck: full range of motion, supple, no meningismus, no bony tend Respiratory: lungs clear, normal breath sounds, no rhonchi, no respiratory distress, no retraction, no accessory muscle use Cardiovascular #1: normal peripheral pulses, regular rate, rhythm, no edema, no gallop, no JVD, no murmur Gastrointestinal: normal bowel sounds, non tender, soft, no mass, no organomegaly, non-distended, no guarding, no hernia, no pulsatile mass, no rebound Genitourinary: no CVA tenderness Musculoskeletal: normal inspection Neurologic: oriented x3, responsive, maritime pilot III-XII nml as tested, motor strength/ tone normal, sensory intact Psychiatric: mood/affect normal Skin: normal color, no rash, warm/dry, palpation normal Lymphatic: normal inspection, no adenopathy Medical Decision Making Diagnostic Impression: Primary Impression: sinusitis ER Course Patient's symptoms at this point have been ongoing for over 2 weeks patient meets criteria for sinus treatments with antibiotics Patient also provided Zofran for the ongoing nausea Otherwise fairly benign medical evaluation remains hemodynamically stable and will have close outpatient follow-up Last Vital Signs Date Time Temp Pulse Resp B/P (MAP) Pulse Ox O2 Delivery O2 Flow Rate FiO2 10/28/18 08:12 74 15 Room Air 10/28/18 08:12 97.5 117/77 94 Status: unchanged Disposition: HOME, SELF-CARE Condition: Stable Scripts Ondansetron (Zofran) 4 Mg Tablet 4 MG ORAL Q6H PRN for Nausea & Vomiting for 5 Days, TAB Prov: Hugo Pickering DO 10/28/18 Amoxicillin/Potassium Clav 875-125* (AUGMENTIN 875-125 TABLET*) 1 Each Tablet 1 TAB ORAL TWICE A DAY, #14 TAB Prov: Hugo Pickering DO 10/28/18 Referrals: HUANG DE LUNA,REFERRING (PCP) Patient Instructions: Sinusitis, Adult, [id number] Additional Instructions: Patient is provided with the discharge instructions notified to follow up with primary doctor in the next 2-3 days otherwise return to the er with any worsening symptoms. Please note that this report is being documented using [employer] technology. This can lead to erroneous entry secondary to incorrect interpretation by the dictating instrument. Hugo Pickering DO Oct 28, 2018 08:59
== END 2018-10-28 08:58 | disposition home or self-care (01) ==
LOC: EMR 08:30
DX: J32.9 Chronic sinusitis, unspecified (principal); I10 Essential (primary) hypertension; E78.5 Hyperlipidemia, unspecified; E11.9 Type 2 diabetes mellitus without complications
CPT/HCPCS: 99282

== ENCOUNTER 2018-11-08 04:54 | Emergency (ER) | payer MEDICAID ==
[~2018-11-08] VITALS: Ht 167.6 cm; Wt 127.0 kg
[~2018-11-08 04:54] MED LIST changes: +GLIPIZIDE5 MG ORAL; +ZOFRAN4 M1 ORAL
[2018-11-08] MEDS ORDERED: Promethazine 50mg/ml Inj IM ONE (05:15)
--- NOTE | 2018-11-08 05:15 | NUR ---
ED Nurse Note: RECIEVED PT ON SHANNON FROM HOME HAVING ACTIVE EMESIS, PT HERE WTIH C/O ABD PAIN WITH NAUSEA ND VOMITING SINCE 10/20, PT THOUGHT SHE HAD FOOD POISIONING BUT REMAINS WITH INTERMITTENT PAIN AND VOMITING, DENIES FEVERS, CP, SOB, OR ANY OTHER COMPLAINTS OR DISCOMFORTS, PT GOWNED, PLACED ON CARDIAC MONITORING, IV LINE PLACED AND LABS DRAWN, WILL RESUME CARE ORDERED AND CONTINUE TO CLOSELY MONITOR.
--- NOTE | 2018-11-08 05:17 | Emergency Room Report ---
History of Present Illness General Chief Complaint: Vomiting Source: Patient Present Illness [facility] This is a 38-year-old female with a history of vasectomy in the past. She presents with chief complaint abdominal cramps with nausea vomiting and occasionally diarrhea. This has been an recurrent problem. Seemed to be more frequently since she got back from [place] last month. Never had any GI consultation. Pain is sharp and crampy. 8 out of 10. Started tonight. Several episode of vomiting. No diarrhea. Allergies: Coded Allergies: No Known Allergies (Verified Allergy, Unknown, 04/10/07) Patient History Past Medical History: see triage record, old chart reviewed Past Surgical History: hari Pertinent Family History: none Social History: Denies: smoking Last Menstrual Period: 2018 Now: No : 3 Para: 2 Immunizations: other Reviewed Nursing Documentation: PMH: Agreed; PSxH: Agreed Nursing Documentation-PMH Hx Cardiac Problems: Yes - Hyperlipidimia, Cardiac cath ablation 2016. Hx Hypertension: Yes Hx Pacemaker: No Hx Asthma: Yes - Bronchitis Hx COPD: No Hx Diabetes: Yes Hx Cancer: No Hx Gastrointestinal Problems: No Hx Dialysis: No Hx Neurological Problems: No Hx Cerebrovascular Accident: No Hx Seizures: No Review of Systems Eye: Denies: eye pain, blurred vision ENT: Denies: ear pain, nose congestion, throat swelling Respiratory: Denies: cough, shortness of breath Cardiovascular: Denies: chest pain, palpitations Gastrointestinal: Reports: abdominal pain, nausea, vomiting; Denies: diarrhea Musculoskeletal: Denies: back pain, joint pain Skin: Denies: rash Neurological: Denies: headache, numbness Endocrine: Denies: increased thirst, increased urine Hematologic/Lymphatic: Denies: easy bruising All Other Systems: negative except mentioned in HPI Physical Exam Vital Signs Date Time Temp Pulse Resp B/P (MAP) Pulse Ox O2 Delivery O2 Flow Rate FiO2 11/08/18 04:58 97.9 94 16 132/89 94 vitals normal Sp02 EP Interpretation: reviewed, normal General Appearance: well appearing, no apparent distress, alert, obese Head: normocephalic, atraumatic Eyes: bilateral eye PERRL, bilateral eye EOMI ENT: hearing grossly normal, normal pharynx Neck: full range of motion, supple, no meningismus Respiratory: chest non-tender, lungs clear, normal breath sounds Cardiovascular #1: regular rate, rhythm, no murmur Gastrointestinal: normal bowel sounds, no mass, no organomegaly, no bruit, non- distended, tenderness - Mild, diffuse Musculoskeletal: back normal, gait/station normal, normal range of motion Neurologic: alert, oriented x3 Psychiatric: mood/affect normal Skin: warm/dry Medical Decision Making Diagnostic Impression: Primary Impression: Abdominal pain Qualified Codes: R10.84 - Generalized abdominal pain Additional Impression: Nausea & vomiting Qualified Codes: R11.2 - Nausea with vomiting, unspecified ER Course Patient with recurrent abdominal pain with nausea and vomiting and diarrhea. This may be cyclic vomiting syndrome. She looks well. Vomiting control. If CT scan is negative, we'll discharge home. No evidence of UTI. Last time I saw her was in May. She had a large ovarian mass seen on CT. Patient never followed up. Will get ultrasound and labs. I will sign this patient out to Dr. Mendosa for final disposition. CT/MRI/US Diagnostic Results CT/MRI/US Diagnostic Results : Imaging Test Ordered: CT abdomen and pelvis Impression read by radiologist Last Vital Signs Date Time Temp Pulse Resp B/P (MAP) Pulse Ox O2 Delivery O2 Flow Rate FiO2 11/08/18 04:58 97.9 94 16 132/89 94 Status: improved Disposition: HOME, SELF-CARE Condition: Stable Scripts Metoclopramide Hcl* (REGLAN*) 10 Mg Tablet 10 MG ORAL THREE TIMES A DAY, #20 TAB Prov: Logan Gaona MD 11/08/18 Patient Instructions: Nausea and Vomiting, Adult Additional Instructions: Follow-up with your DrJelena in 3-5 days. You may need a referral to see a rental manager for further workup. Return if symptom worsen. Logan Gaona MD Nov 08, 2018 05:17
[2018-11-08 05:37] LABS: APPEARANCE,URINE CLEAR; BILIRUBIN, URINE NEGATIVE (NEGATIVE); COLOR,URINE PALE YELLOW; GLUCOSE, URINE (UA) 4+ (NEGATIVE); KETONES,URINE NEGATIVE (NEGATIVE); LEUKOCYTE ESTERASE ,URINE NEGATIVE (NEGATIVE); NITRITE,URINE NEGATIVE (NEGATIVE); PH,URINE 5 (4.5-8.0); PROTEIN,URINE 3+ (NEGATIVE); UROBILINOGEN,URINE NORMAL MG/DL (0.0-1.0)
--- NOTE | 2018-11-08 06:10 | NUR ---
ED Nurse Note: PT MEDICATED ORDERED, MEDS SLIGHTLY EFFECTIVE, NAUSEA REAOLVED BUT REMAINS WITH PAIN AT 8/10, IV SITE PATENT, PT WAITING FOR ORDERED IMAGING, WILL CONTINUE TO CLOSELY MONITOR.
[2018-11-08] MEDS ORDERED: REGLAN10 MG ORAL (06:14)
[2018-11-08 06:49] LABS: BASOPHILS % (AUTO) 0.3 % (0.0-2.0); EOSINOPHILS % (AUTO) 2.5 % (0.0-3.0); HEMATOCRIT 46.3 % (37.0-47.0); LYMPHOCYTES % (AUTO) 20.7 % (20.0-45.0); MEAN CORPUSCULAR VOLUME 88 FL (80-99); NEUTROPHILS % (AUTO) 71.5 % (45.0-75.0); PLATELET COUNT 393 K/UL (150-450); RED BLOOD COUNT 5.26 M/UL (4.20-5.40); WHITE BLOOD COUNT 10.7 K/UL (4.8-10.8)
[2018-11-08 06:55] LABS: ANION GAP 11 mmol/L (5-15); BLOOD UREA NITROGEN 18 mg/dL (7-18); CALCIUM 9.4 MG/DL (8.5-10.1); CARBON DIOXIDE 27 MMOL/L (21-32); CHLORIDE 103 MMOL/L (98-107); CREATININE 0.7 MG/DL (0.55-1.30); POTASSIUM 3.6 MMOL/L (3.5-5.1); SODIUM 141 MMOL/L (136-145)
[2018-11-08 06:57] LABS: INR 0.9 (0.9-1.1)
[2018-11-08 06:59] LABS: ALANINE AMINOTRANSFERASE 41 U/L (12-78); ALBUMIN 3.8 G/DL (3.4-5.0); ALBUMIN/GLOBULIN RATIO 0.8 (1.0-2.7); ALKALINE PHOSPHATASE 62 U/L (46-116); ASPARTATE AMINO TRANSFERASE 23 U/L (15-37); BILIRUBIN,TOTAL 0.3 MG/DL (0.2-1.0)
--- NOTE | 2018-11-08 07:30 | Diagnostic Imaging Report ---
EXAM: CT Abdomen and Pelvis Without Intravenous Contrast CLINICAL HISTORY: Abdominal pain TECHNIQUE: Axial computed tomography images of the abdomen and pelvis without intravenous contrast. CTDI is 30.95 mGy and DLP is 1665 mGy-cm. One or more of the following dose reduction techniques were used: automated exposure control, adjustment of the mA and/or kV according to patient size, use of iterative reconstruction technique. Coronal and sagittal reformatted images were created and reviewed. COMPARISON: CT abdomen/pelvis 05/09/18 FINDINGS: Lung bases: Unremarkable. No mass. No consolidation. ABDOMEN: Liver: Enlarged (23.5 cm) with decreased attenuation compatible with steatosis. No intrahepatic biliary ductal dilatation. Gallbladder and bile ducts: Prior cholecystectomy without common bile duct dilation. Pancreas: Unremarkable. No ductal dilation or peripancreatic inflammatory stranding. Spleen: Unremarkable. No splenomegaly. Adrenals: Stable 11 mm indeterminant density left adrenal nodule. Kidneys and ureters: Small nonobstructive right intrarenal calculi without hydroureteronephrosis or radiopaque obstructing ureteral calculus. 7 cm x 7 cm rounded low-density mid right renal lesion is stable versus minimally increased in size compared to prior and most compatible with a cyst. Stomach and bowel: Unremarkable. No small bowel obstruction. No bowel wall thickening allowing for underdistention. PELVIS: Appendix: Normal appendix. Bladder: Unremarkable. No stones. Reproductive: Unremarkable as visualized. ABDOMEN and PELVIS: Intraperitoneal space: Unremarkable. No free air. No significant fluid collection. Bones/joints: Multilevel degenerative disease most pronounced at L5-S1 where a large disc osteophyte complex effaces the lateral recesses, narrows the spinal canal, and narrows the lateral neural foramina, unchanged. No acute fracture. No dislocation. Soft tissues: Small fat-containing ventral wall hernia, unchanged. Mild diffuse soft tissue edema. Vasculature: Unremarkable. No abdominal aortic aneurysm. Lymph nodes: Unremarkable. No enlarged lymph nodes. IMPRESSION: 1. Normal appendix. 2. Hepatomegaly with steatosis. 3. Prior cholecystectomy without biliary ductal dilatation. 4. Punctate nonobstructive right intrarenal calculi without hydroureteronephrosis or radiopaque obstructing ureteral calculus. 5. Mild diffuse soft tissue edema without free fluid, free air, small bowel obstruction, colonic wall thickening, or CT evidence of acute pancreatitis. 6. 7 cm low-density right renal lesion is stable versus minimally increased in size compared to prior and likely represents a cyst. Nonemergent/outpatient ultrasound could confirm if not previously performed. 7. Lumbar spondylosis most pronounced at L5-S1, unchanged from prior, as described above.
--- NOTE | 2018-11-08 08:00 | NUR ---
ED Nurse Note: received patient in bed sleeping with supine position. VSS and no s/s of cardiac or pulmonary distress noted.
[2018-11-08 08:31] VITALS: BP 133/65
[2018-11-08 08:50] VITALS: BP 108/63
--- NOTE | 2018-11-08 08:50 | NUR ---
ED Nurse Note: pt woke up and called her mom to update on her condition. VSS and reported abdominal pain 3/10 and nausea but no vomiting noted at this moment.
--- NOTE | 2018-11-08 10:20 | NUR ---
ED Nurse Note: pt was taken down to US in stable condition.
--- NOTE | 2018-11-08 11:08 | NUR ---
ED Nurse Note: pt came back from US in stable condition.
[2018-11-08 11:15] VITALS: BP 119/67
--- NOTE | 2018-11-08 11:16 | NUR ---
ED Nurse Note: JAXOND spoke to the pt about results of lab, CT, and US. pt verbalized understanding.
[2018-11-08 11:34] VITALS: BP 116/74
--- NOTE | 2018-11-08 11:35 | NUR ---
ER DISCHARGE NOTE: Patient is cleared to be discharged per ERMD, pt is aox4, on room air, with stable vital signs. pt was given dc and prescription instructions, pt was able to verbalize understanding, pt id band and iv site removed without complications. pt is able to ambulate with steady gait. pt took all belongings.
== END 2018-11-08 11:36 | disposition home or self-care (01) ==
LOC: EMR 05:48
DX: R11.2 Nausea with vomiting, unspecified (principal); R10.9 Unspecified abdominal pain; E11.9 Type 2 diabetes mellitus without complications; I10 Essential (primary) hypertension; E78.5 Hyperlipidemia, unspecified
CPT/HCPCS: 36415; 74176; 76830; 76856; 80053; 81003; 81025; 83690; 85025; 85610; 85730; 87086; 96372; 99284; J2550

== ENCOUNTER 2018-12-05 12:40 | Emergency (ER) | payer MEDICAID ==
[~2018-12-05] VITALS: Ht 167.6 cm; Wt 131.5 kg
[~2018-12-05 12:40] MED LIST changes: +REGLAN10 MG ORAL
[2018-12-05] MEDS ORDERED: Morphine Sulfate 4mg/ml Inj (IV USE ONLY) IVP ONE (13:00)
[2018-12-05 13:43] LABS: APPEARANCE,URINE CLEAR; BILIRUBIN, URINE NEGATIVE (NEGATIVE); COLOR,URINE PALE YELLOW; GLUCOSE, URINE (UA) 4+ (NEGATIVE); KETONES,URINE NEGATIVE (NEGATIVE); LEUKOCYTE ESTERASE ,URINE NEGATIVE (NEGATIVE); NITRITE,URINE NEGATIVE (NEGATIVE); PH,URINE 5 (4.5-8.0); PROTEIN,URINE 2+ (NEGATIVE); UROBILINOGEN,URINE NORMAL MG/DL (0.0-1.0)
[2018-12-05 13:47] LABS: ANION GAP 10 mmol/L (5-15); BLOOD UREA NITROGEN 16 mg/dL (7-18); CALCIUM 9.5 MG/DL (8.5-10.1); CARBON DIOXIDE 27 MMOL/L (21-32); CHLORIDE 103 MMOL/L (98-107); CREATININE 0.6 MG/DL (0.55-1.30); POTASSIUM 3.3 MMOL/L (3.5-5.1); SODIUM 140 MMOL/L (136-145)
[2018-12-05 13:48] LABS: BASOPHILS % (AUTO) 0.5 % (0.0-2.0); EOSINOPHILS % (AUTO) 1.7 % (0.0-3.0); HEMATOCRIT 42.9 % (37.0-47.0); HEMOGLOBIN 14.2 G/DL (12.0-16.0); LYMPHOCYTES % (AUTO) 20.5 % (20.0-45.0); MEAN CORPUSCULAR VOLUME 87 FL (80-99); MONOCYTES % (AUTO) 5.8 % (1.0-10.0); NEUTROPHILS % (AUTO) 71.5 % (45.0-75.0); PLATELET COUNT 344 K/UL (150-450); RED BLOOD COUNT 4.93 M/UL (4.20-5.40); RED CELL DISTRIBUTION WIDTH 13.2 % (11.6-14.8); WHITE BLOOD COUNT 12.1 K/UL (4.8-10.8)
--- NOTE | 2018-12-05 13:48 | Emergency Room Report ---
History of Present Illness General Chief Complaint: Nausea, Vomiting, and Diarrhea Source: Patient Present Illness HPI 38-year-old female with history of hypertension, diabetes, obesity, cystectomy, presents with dental pain, nausea and vomiting 3 times this morning with 4 episodes of loose stools as well. She reports pain in her abdomen is crampy and diffuse, not localized, denies any fevers, chills, urinary complaints, gynecologic complaints, chest pain, shortness of breath, and cannot think of any obvious triggers such as food, or alleviating or exacerbating factors. Not tried any medications for symptoms. She also denies any family or friends with similar symptoms or sick contacts. Allergies: Coded Allergies: No Known Allergies (Verified Allergy, Unknown, 04/10/07) Patient History Past Medical History: see triage record Last Menstrual Period: unknown, irregular Nursing Documentation-PM Past Medical History: No History, Except For Hx Cardiac Problems: Yes - Hyperlipidimia, Cardiac cath ablation 2016. Hx Hypertension: Yes Hx Pacemaker: No Hx Asthma: Yes - Bronchitis Hx COPD: No Hx Diabetes: Yes Hx Cancer: No Hx Gastrointestinal Problems: No Hx Dialysis: No History Of Psychiatric Problem: No Hx Neurological Problems: No Hx Cerebrovascular Accident: No Hx Seizures: No Review of Systems All Other Systems: negative except mentioned in HPI Physical Exam Vital Signs Date Time Temp Pulse Resp B/P (MAP) Pulse Ox O2 Delivery O2 Flow Rate FiO2 12/05/18 12:48 98.2 88 14 133/85 96 Room Air Sp02 EP Interpretation: reviewed, normal General Appearance: no apparent distress, alert, non-toxic Head: normocephalic Eyes: bilateral eye normal inspection, bilateral eye PERRL, bilateral eye EOMI ENT: normal ENT inspection, hearing grossly normal, normal pharynx, no angioedema, normal voice, moist mucus membranes Neck: normal inspection, full range of motion, supple, supple/symm/no masses Respiratory: chest non-tender, lungs clear, normal breath sounds, chest symmetrical, palpation of chest normal Cardiovascular #1: normal peripheral pulses, regular rate, rhythm, edema - 1+ bilateral lower extremity edema to proximal tibia Cardiovascular #2: 2+ radial (R), 2+ radial (L), 2+ dorsalis pedis (R), 2+ dorsalis pedis (L) Gastrointestinal: normal inspection, non tender, soft, no mass, no guarding, no rebound Rectal: deferred Genitourinary: normal inspection, no CVA tenderness Musculoskeletal: back normal, gait/station normal, normal range of motion, non- tender, no calf tenderness Neurologic: alert, responsive, 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 Abdomen is soft and nontender. She has a history of cholecystectomy. Labs and urine unremarkable, test negative. Given IV fluids, Zofran, morphine, and is pending results of CT scan. Patient had a recent CT scan last month which was unremarkable, I do not have a high suspicion of acute pathology , will discharge if CT negative. Last Vital Signs Date Time Temp Pulse Resp B/P (MAP) Pulse Ox O2 Delivery O2 Flow Rate FiO2 12/05/18 12:48 98.2 88 14 133/85 96 Room Air Disposition: HOME, SELF-CARE Condition: Stable Referrals: NON PHYSICIAN (PCP) NADIR MCGOVERN M.D Dec 05, 2018 13:47
[2018-12-05 13:51] LABS: ALANINE AMINOTRANSFERASE 30 U/L (12-78); ALBUMIN 3.6 G/DL (3.4-5.0); ALBUMIN/GLOBULIN RATIO 0.8 (1.0-2.7); ALKALINE PHOSPHATASE 58 U/L (46-116); ASPARTATE AMINO TRANSFERASE 17 U/L (15-37); BILIRUBIN,TOTAL 0.3 MG/DL (0.2-1.0)
[2018-12-05 13:59] VITALS: BP 133/85
--- NOTE | 2018-12-05 14:01 | NUR ---
ED Nurse Note:pt. came with c/o abd pain nausea vomiting started today, VSS, blood and urine sent to labs, IV meds and fluids given
[2018-12-05] MEDS ORDERED: ZOFRAN4 M1 ORAL (14:22)
[2018-12-05] MEDS ORDERED: DICYCLOMINE HCL10 MG PO (14:22)
--- NOTE | 2018-12-05 15:28 | Diagnostic Imaging Report ---
Indication: Abdominal pain Technique: Spiral acquisitions obtained through the abdomen and pelvis. No oral contrast utilized, per emergency room physician request No IV contrast utilized, per referring physician request. Multiplanar reconstructions were generated. Total dose length product 1106.01 mGycm. CTDIvol(s) 19.51 mGy. Dose reduction achieved using automated exposure control Comparison: 11/08/2018 Findings: Lack of enteric contrast limits assessment of the GI tract. There are a few colonic diverticula. No evidence of diverticulitis. Normal appendix. The ascending colon is somewhat fluid-filled. Small bowel loops are fluid-filled. The distal esophagus, stomach, duodenum are unremarkable. No small bowel distention or small bowel wall thickening. There is a tiny fat-containing umbilical hernia. The gallbladder is surgically absent. The liver is enlarged and diffusely hypoattenuating, consistent with fatty change. No biliary ductal dilatation. The spleen, pancreas, adrenals, left kidney are unremarkable. The right kidney demonstrates a large cyst with a mural calcification. No retroperitoneal or mesenteric mass or adenopathy. No pelvic mass or adenopathy. Uterus and ovaries are unremarkable. The included lung bases are clear except for a small cyst in the posterior medial right lower lobe. The bones are unremarkable except for mild degenerative spondylosis changes. No definite significant interim change Impression: Limited assessment of the GI tract, due to lack of enteric contrast administration Fluid-filled small bowel loops, of doubtful significance but could indicate enteritis changes No definite acute abnormality otherwise Enlarged fatty liver, also previously described Other findings as noted, including small right lower lobe air cyst, mild degenerative spondylosis changes, right renal cyst, prior cholecystectomy, tiny fat-containing umbilical hernia The CT scanner at [facility] is accredited by the [employer] and the scans are performed using protocols designed to limit radiation exposure to as low as reasonably achievable to attain images of sufficient resolution adequate for diagnostic evaluation.
[2018-12-05 15:38] VITALS: BP 136/84
[2018-12-05] MEDS ORDERED: Ketorolac 30mg Inj IM ONE (16:15)
--- NOTE | 2018-12-05 16:34 | NUR ---
ED Nurse Note:pt. tolerating PO challenge
[2018-12-05 16:59] VITALS: BP 136/84
== END 2018-12-05 17:00 | disposition home or self-care (01) ==
LOC: EMR 13:05
DX: R10.9 Unspecified abdominal pain (principal); R11.2 Nausea with vomiting, unspecified; R19.7 Diarrhea, unspecified; I10 Essential (primary) hypertension; E78.5 Hyperlipidemia, unspecified
CPT/HCPCS: 36415; 74176; 80053; 81003; 81025; 83690; 85025; 96361; 96372; 96374; 96375; 96376; 99284; J1885; J2270; J2405; J8499

== ENCOUNTER 2019-03-05 01:03 | Emergency (ER) | payer MEDICAID ==
[~2019-03-05] VITALS: Ht 167.6 cm; Wt 127.0 kg
[2019-03-05 01:16] VITALS: BP 178/103
--- NOTE | 2019-03-05 01:19 | NUR ---
ED Nurse Note: Pt ambulated to ED from home c/o chest tightness, plural pain 10/10, cough and audible wheezing heard. Pt is A&Ox4
--- NOTE | 2019-03-05 01:24 | Emergency Room Report ---
History of Present Illness General Chief Complaint: Dyspnea/Respdistress Source: Patient Present Illness HPI The patient presents with dyspnea. Dyspnea on exertion and can only take several steps before she is out of breath she is herself wheezing and has a nonproductive cough. She denies any fevers or chills. She also denies sore throat. She usually has an inhaler but is been moving and cannot find it. She has been on prednisone in the past. She is complaining about 8/10 chest pain when she coughs. Is pleuritic and not exertional. She does have some edema but denies any calf pain. She has not been taking her blood pressure medication because as she is moving she cannot find it. The patient also complains about difficulty swallowing and constipation. She feels a lot of gaseousness and distention in her stomach recently. Denies vomiting and has not moved her bowels for couple of days. No palpitations, nausea, vomiting, diarrhea, dysuria, abdominal pain, depression , visual changes, headache. Allergies: Coded Allergies: No Known Allergies (Verified Allergy, Unknown, 04/10/07) Patient History Past Medical History: see triage record Social History: Reports: smoking Social History Narrative With mom Now: No : 3 Para: 2 Reviewed Nursing Documentation: PMH: Agreed; PSxH: Agreed Nursing Documentation-PMH Hx Cardiac Problems: Yes - Hyperlipidimia, Cardiac cath ablation 2016. Hx Hypertension: Yes Hx Pacemaker: No Hx Asthma: No - Bronchitis Hx COPD: No Hx Diabetes: Yes Hx Cancer: No Hx Gastrointestinal Problems: No Hx Dialysis: No Hx Neurological Problems: No Hx Cerebrovascular Accident: No Hx Seizures: No Review of Systems All Other Systems: negative except mentioned in HPI Physical Exam Vital Signs Date Time Temp Pulse Resp B/P (MAP) Pulse Ox O2 Delivery O2 Flow Rate FiO2 03/05/19 01:07 98.1 87 26 178/103 (128) 100 Room Air Sp02 EP Interpretation: reviewed, normal General Appearance: no apparent distress, GCS 15 Head: normocephalic, atraumatic Eyes: bilateral eye normal inspection, bilateral eye PERRL, bilateral eye EOMI ENT: moist mucus membranes Neck: supple Respiratory: wheezing, expiration, inspiration, other - Persistent cough Cardiovascular #1: regular rate, rhythm Cardiovascular #2: 2+ radial (R) Gastrointestinal: normal inspection, normal bowel sounds, non tender, no mass, non-distended, overweight Genitourinary: no CVA tenderness Musculoskeletal: back normal, gait/station normal, normal range of motion Neurologic: alert, oriented x3, grossly normal Psychiatric: depressed affect Skin: no rash Medical Decision Making Diagnostic Impression: Primary Impression: Dyspnea Qualified Codes: R06.09 - Other forms of dyspnea Additional Impressions: Asthmatic bronchitis Qualified Codes: J45.41 - Moderate persistent asthma with (acute) exacerbation Constipation Qualified Codes: K59.00 - Constipation, unspecified Eosinophilia ER Course Patient presents with dyspnea on exertion and constipation with noncompliance. Differential includes acute myocardial infarction, pulmonary embolus, pneumonia , exacerbation of asthma and COPD amongst others. Regarding the GI tract she probably is dehydrated at this time but we need to exclude urinary tract infection. Her abdomen is soft. Evaluation will be with EKG, chest x-ray and labs. Patient will be treated with methyl prednisolone, breathing treatments Tylenol and lactulose. She was not given opiates because this would worsen the constipation. EKG normal sinus rhythm no injury. Chest x-ray with increased saenz right middle lobe no definite infiltrate. Labs with normal white count and eosinophilia. CMP unremarkable. Patient still with some posttussive wheezing and albuterol repeated. Patient improved. Oxygen saturation 100%. Blood pressures come down. She still complains of some chest pain, however she is sleeping. Discussed treatment plan with patient. Patient stable for outpatient observation and treatment. Laboratory Tests Test 03/05/19 01:30 03/05/19 02:20 White Blood Count 8.2 K/UL (4.8-10.8) Red Blood Count 4.46 M/UL (4.20-5.40) Hemoglobin 13.2 G/DL (12.0-16.0) Hematocrit 39.5 % (37.0-47.0) Mean Corpuscular Volume 88 FL (80-99) Mean Corpuscular Hemoglobin 29.6 PG (27.0-31.0) Mean Corpuscular Hemoglobin Concent 33.4 G/DL (32.0-36.0) Red Cell Distribution Width 12.0 % (11.6-14.8) Platelet Count 306 K/UL (150-450) Mean Platelet Volume 5.6 FL (6.5-10.1) L Neutrophils (%) (Auto) 49.5 % (45.0-75.0) Lymphocytes (%) (Auto) 39.4 % (20.0-45.0) Monocytes (%) (Auto) 6.5 % (1.0-10.0) Eosinophils (%) (Auto) 3.8 % (0.0-3.0) H Basophils (%) (Auto) 0.8 % (0.0-2.0) Sodium Level 136 MMOL/L (136-145) Potassium Level 3.7 MMOL/L (3.5-5.1) Chloride Level 100 MMOL/L (98-107) Carbon Dioxide Level 27 MMOL/L (21-32) Anion Gap 9 mmol/L (5-15) Blood Urea Nitrogen 16 mg/dL (7-18) Creatinine 1.0 MG/DL (0.55-1.30) Estimate Glomerular Filtration Rate > 60 mL/min (>60) Glucose Level 480 MG/DL (74-106) H Calcium Level 9.2 MG/DL (8.5-10.1) Total Bilirubin 0.1 MG/DL (0.2-1.0) L Aspartate Amino Transferase (AST) 19 U/L (15-37) Alanine Aminotransferase (ALT) 28 U/L (12-78) Alkaline Phosphatase 98 U/L (46-116) Total Creatine Kinase 372 U/L (26-308) H Pro-B-Type Natriuretic Peptide 85 pg/mL (0-125) Total Protein 7.2 G/DL (6.4-8.2) Albumin 3.5 G/DL (3.4-5.0) Globulin 3.7 g/dL Albumin/Globulin Ratio 0.9 (1.0-2.7) L Urine Color Pale yellow Urine Appearance Clear Urine pH 5 (4.5-8.0) Urine Specific [place] 1.015 (1.005-1.035) Urine Protein 2+ (NEGATIVE) H Urine Glucose (UA) 4+ (NEGATIVE) H Urine Ketones Negative (NEGATIVE) Urine Blood 2+ (NEGATIVE) H Urine Nitrite Negative (NEGATIVE) Urine Bilirubin Negative (NEGATIVE) Urine Urobilinogen Normal MG/DL (0.0-1.0) Urine Leukocyte Esterase Negative (NEGATIVE) Urine RBC 5-10 /HPF (0 - 2) H Urine WBC 0-2 /HPF (0 - 2) Urine Squamous Epithelial Cells Few /LPF (NONE/OCC) Urine Bacteria None /HPF (NONE) EKG Diagnostic Results Rate: normal Rhythm: NSR ST Segments: no acute changes Rhythm Strip Diag. Results EP Interpretation: yes Rhythm: NSR, no PVC's, no ectopy Chest X-Ray Diagnostic Results Chest X-Ray Diagnostic Results : Chest X-Ray Ordered: Yes # of Views/Limited/Complete: 1 View Indication: Other EP Interpretation: Yes Interpretation: no effusion, no pneumothorax, other - min increased saenz RML Impression: Other Electronically Signed by: Electronically signed by Silas Monroy MD Last Vital Signs Date Time Temp Pulse Resp B/P (MAP) Pulse Ox O2 Delivery O2 Flow Rate FiO2 03/05/19 04:05 80 24 109/56 98 Room Air 03/05/19 02:44 21 03/05/19 02:07 98.1 Status: improved Disposition: HOME, SELF-CARE Condition: Improved Scripts Lactulose (LACTULOSE*) 20 Gm/30 Ml Solution 30 ML ORAL BID PRN for Constipation, #240 ML 0 Refills Prov: Silas Monroy MD 03/05/19 Beclomethasone Dipropionate 40MCG Oral Inh (QVAR 40*) 7.3 Gm Aer.w.adap 2 PUFFS INH TWICE A DAY, #1 GM 0 Refills use when not using prednisone Prov: Silas Monroy MD 03/05/19 Albuterol Sulfate* (ALBUTEROL SULFATE MDI*) 8.5 Gm Hfa.aer.ad 2 PUFF INH Q6H, #1 EA 0 Refills Prov: Silas Monroy MD 03/05/19 Guaifenesin/Dextromethorphan (Robitussin Cough-Chest Dm Liq) 237 Ml Liquid 5 ML PO Q6HR, #90 ML Prov: Silas Monroy MD 03/05/19 Silas Monroy MD Mar 05, 2019 01:24
[2019-03-05] MEDS ORDERED: Solu-MEDROL 125mg Inj IVP ONE (01:30)
[2019-03-05] MEDS ORDERED: Ipratropium 0.02% Inh Soln 2.5ml UD HHN ONE (01:30)
[2019-03-05] MEDS ORDERED: Acetaminophen 500mg (ES) tab ORAL ONE (01:30)
[2019-03-05] MEDS ORDERED: HYDROcodone/Acetamin 5/325 tab ORAL ONE (01:30)
[2019-03-05] MEDS ORDERED: Albuterol ud Inhalation HHN ONE ×2 (01:30→02:30)
[2019-03-05] MEDS ORDERED: Lactulose 20gm/30ml UDC ORAL ONE (01:30)
[2019-03-05 01:47] LABS: ANION GAP 9 mmol/L (5-15); BLOOD UREA NITROGEN 16 mg/dL (7-18); CALCIUM 9.2 MG/DL (8.5-10.1); CARBON DIOXIDE 27 MMOL/L (21-32); CHLORIDE 100 MMOL/L (98-107); POTASSIUM 3.7 MMOL/L (3.5-5.1); SODIUM 136 MMOL/L (136-145)
[2019-03-05 01:53] LABS: BASOPHILS % (AUTO) 0.8 % (0.0-2.0); EOSINOPHILS % (AUTO) 3.8 % (0.0-3.0); HEMATOCRIT 39.5 % (37.0-47.0); HEMOGLOBIN 13.2 G/DL (12.0-16.0); LYMPHOCYTES % (AUTO) 39.4 % (20.0-45.0); MEAN CORPUSCULAR VOLUME 88 FL (80-99); MONOCYTES % (AUTO) 6.5 % (1.0-10.0); NEUTROPHILS % (AUTO) 49.5 % (45.0-75.0); PLATELET COUNT 306 K/UL (150-450); RED BLOOD COUNT 4.46 M/UL (4.20-5.40); WHITE BLOOD COUNT 8.2 K/UL (4.8-10.8)
[2019-03-05 01:59] LABS: ALANINE AMINOTRANSFERASE 28 U/L (12-78); ALBUMIN 3.5 G/DL (3.4-5.0); ALBUMIN/GLOBULIN RATIO 0.9 (1.0-2.7); ALKALINE PHOSPHATASE 98 U/L (46-116); ASPARTATE AMINO TRANSFERASE 19 U/L (15-37); BILIRUBIN,TOTAL 0.1 MG/DL (0.2-1.0); CREATINE KINASE 372 U/L (26-308)
--- NOTE | 2019-03-05 02:39 | Diagnostic Imaging Report ---
EXAM: XR Chest, 1 View CLINICAL HISTORY: DYSPNEA TECHNIQUE: Frontal view of the chest. COMPARISON: 04/24/18 FINDINGS: Lungs: Low lung volume accentuate lung markings. Overall increased opacity in the right lower lung which may represent atelectasis or infiltrate. Patient's chin obscures the right lung apex. Overall prominence of the central lung markings, possible mild congestion. Pleural space: Unremarkable. No pneumothorax. Heart: Cardiovascular silhouette, upper limits of normal. Mediastinum: Unremarkable. Bones/joints: Unremarkable. IMPRESSION: 1. Low lung volume. 2. Possible mild vascular congestion 3. Developing atelectasis versus infiltrate in the right lung base.
[2019-03-05 03:05] LABS: APPEARANCE,URINE CLEAR; BILIRUBIN, URINE NEGATIVE (NEGATIVE); COLOR,URINE PALE YELLOW; GLUCOSE, URINE (UA) 4+ (NEGATIVE); KETONES,URINE NEGATIVE (NEGATIVE); LEUKOCYTE ESTERASE ,URINE NEGATIVE (NEGATIVE); NITRITE,URINE NEGATIVE (NEGATIVE); PH,URINE 5 (4.5-8.0); PROTEIN,URINE 2+ (NEGATIVE); UROBILINOGEN,URINE NORMAL MG/DL (0.0-1.0)
[2019-03-05] MEDS ORDERED: QVAR7.3 GM INH (03:52)
[2019-03-05] MEDS ORDERED: LACTULOSE20 GM/301 ORAL (03:52)
[2019-03-05] MEDS ORDERED: ROBITUSSIN COU237 M2 PO (03:52)
[2019-03-05] MEDS ORDERED: ALBUTEROL SULF8.5 GM INH (03:52)
[2019-03-05 04:05] VITALS: BP 109/56
--- NOTE | 2019-03-05 21:44 | Cardiology Report ---
APPROVED REPORT EKG Measurement Heart [id number] Normal sinus rhythm Cannot rule out Anterior infarct, age undetermined Abnormal ECG
== END 2019-03-05 04:05 | disposition home or self-care (01) ==
LOC: EMR 01:45
DX: R06.00 Dyspnea, unspecified (principal); J45.41 Moderate persistent asthma with (acute) exacerbation; K59.00 Constipation, unspecified; D72.1 Eosinophilia; F17.200 Nicotine dependence, unspecified, uncomplicated; E78.5 Hyperlipidemia, unspecified; I10 Essential (primary) hypertension; E11.9 Type 2 diabetes mellitus without complications
CPT/HCPCS: 36415; 71045; 80053; 81003; 82550; 83880; 85025; 93005; 94640; 94664; 96361; 96374; 99284; J2930

== ENCOUNTER 2019-04-01 21:29 | Emergency (ER) | payer MEDICAID ==
[~2019-04-01] VITALS: Ht 167.6 cm; Wt 124.7 kg
[~2019-04-01 21:29] MED LIST changes: +LACTULOSE20 GM/301 ORAL; +QVAR7.3 GM INH; +ROBITUSSIN COU237 M2 PO
--- NOTE | 2019-04-01 22:07 | NUR ---
ED Nurse Note: PT c/o 8/10 R arm pain, and vaginal pressure/pain x 1 week. Pt is AO x 4times, VSS, on room air no distress. JAXOND seen Pt at bedside.
[2019-04-01 22:15] VITALS: BP 157/99
[2019-04-01 22:32] LABS: APPEARANCE,URINE SLIGHTLY CLOUDY; BILIRUBIN, URINE NEGATIVE (NEGATIVE); COLOR,URINE PALE YELLOW; GLUCOSE, URINE (UA) 4+ (NEGATIVE); KETONES,URINE 1+ (NEGATIVE); LEUKOCYTE ESTERASE ,URINE 2+ (NEGATIVE); NITRITE,URINE NEGATIVE (NEGATIVE); PH,URINE 5 (4.5-8.0); PROTEIN,URINE 3+ (NEGATIVE); UROBILINOGEN,URINE NORMAL MG/DL (0.0-1.0)
[2019-04-01] MEDS ORDERED: CEPHALEXIN500 MG ORAL (23:09)
[2019-04-01 23:14] VITALS: BP 157/99
--- NOTE | 2019-04-01 23:15 | NUR ---
ED Nurse Note: Pt cleared by health care Provider for discharge. DC instructions/prescription was given and explained to pt and verbalized understanding of teachings. All medical deviecs such as ID band removed. Pt is AAO x4, ambulatory and left with all personal belongings.
--- NOTE | 2019-04-02 04:03 | Emergency Room Report ---
History of Present Illness General Chief Complaint: Pain Source: Patient Present Illness HPI 39-year-old female presents ED for evaluation. Complaining of "vaginal pressure " x1 week. States that she is experiencing some dysuria. Denies any vaginal bleeding or discharge. Denies any recent unprotected sexual activity. Denies nausea or vomiting. Denies flank pain. Denies fevers or chills. Also complaining of right arm pain x1 week. 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 Pain is worse with movement. No other aggravating relieving factors. Denies any other associated symptoms Allergies: Coded Allergies: No Known Allergies (Verified Allergy, Unknown, 04/10/07) Patient History Past Medical History: DM, HTN Past Surgical History: none Pertinent Family History: none Social History: Denies: smoking, alcohol use, drug use Last Menstrual Period: unknown Now: No : 2 Para: 2 Immunizations: UTD Reviewed Nursing Documentation: PMH: Agreed; PSxH: Agreed Nursing Documentation-PMH Past Medical History: No History, Except For Hx Cardiac Problems: Yes - Hyperlipidimia, Cardiac cath ablation 2017. Hx Hypertension: Yes Hx Pacemaker: No Hx Asthma: No - Bronchitis Hx COPD: No Hx Diabetes: Yes Hx Cancer: No Hx Gastrointestinal Problems: No Hx Dialysis: No Hx Neurological Problems: No Hx Cerebrovascular Accident: No Hx Seizures: No Review of Systems All Other Systems: negative except mentioned in HPI Physical Exam Vital Signs Date Time Temp Pulse Resp B/P (MAP) Pulse Ox O2 Delivery O2 Flow Rate FiO2 04/01/19 21:58 98.1 70 20 157/99 (118) 93 Room Air Sp02 EP Interpretation: reviewed, normal General Appearance: no apparent distress, alert, GCS 15, non-toxic, obese Head: normocephalic Eyes: bilateral eye normal inspection, bilateral eye PERRL ENT: normal ENT inspection Neck: normal inspection Respiratory: normal inspection Cardiovascular #1: normal inspection Gastrointestinal: normal inspection Rectal: deferred Genitourinary: no CVA tenderness Musculoskeletal: normal range of motion Neurologic: alert, oriented x3, responsive, motor strength/tone normal, sensory intact, speech normal Psychiatric: normal inspection Skin: no rash Lymphatic: normal inspection Medical Decision Making Diagnostic Impression: Primary Impression: Strain of upper arm Qualified Codes: S46.911A - Strain of unspecified muscle, fascia and tendon at shoulder and upper arm level, right arm, initial encounter Additional Impression: UTI (urinary tract infection) Qualified Codes: N39.0 - Urinary tract infection, site not specified ER Course Hospital Course 39 yo F presents to ED c/o dysuria. R arm pain Differential diagnoses include: UTI, cystitis, pyelonephritis Clinical course Patient placed on stretcher. After initial history and physical I ordered UA UA + bacteria discussed findings with patient. There is full range of motion to the right arm. No crepitus or bruising. Likely muscle strain from heavy lifting of patients. We will also discharge on antibiotics. Safe for discharge for close outpatient follow-up Diagnosis - UTI. strain of upper arm Stable and discharged home with prescriptions for Rx keflex. Instructed to followup with PMD. Return to ED if symptoms recur or worsen Labs Test 04/01/19 22:17 Urine Color Pale yellow Urine Appearance Slightly cloudy Urine pH 5 (4.5-8.0) Urine Specific [place] 1.025 (1.005-1.035) Urine Protein 3+ (NEGATIVE) Urine Glucose (UA) 4+ (NEGATIVE) Urine Ketones 1+ (NEGATIVE) Urine Blood 5+ (NEGATIVE) Urine Nitrite Negative (NEGATIVE) Urine Bilirubin Negative (NEGATIVE) Urine Urobilinogen Normal MG/DL (0.0-1.0) Urine Leukocyte Esterase 2+ (NEGATIVE) Urine RBC 5-10 /HPF (0 - 2) Urine WBC 10-15 /HPF (0 - 2) Urine Squamous Epithelial Cells Many /LPF (NONE/OCC) Urine Bacteria Moderate /HPF (NONE) Urine HCG, Qualitative Negative (NEGATIVE) Last Vital Signs Date Time Temp Pulse Resp B/P (MAP) Pulse Ox O2 Delivery O2 Flow Rate FiO2 04/01/19 23:14 98.1 20 157/99 93 Room Air 04/01/19 21:58 70 Status: improved Disposition: HOME, SELF-CARE Condition: Stable Scripts Cephalexin* (KEFLEX*) 500 Mg Capsule 500 MG ORAL EVERY 6 HOURS for 7 Days, CAP Prov: Fly Thompson MD 04/01/19 Referrals: NON PHYSICIAN (PCP) [facility] Return to Work Return to Work Date: Apr 03, 2019 Work Restrictions: No Heavy Lifting Patient Instructions: Muscle Strain, [id number] Fly Thompson MD Apr 02, 2019 04:03
== END 2019-04-01 23:17 | disposition home or self-care (01) ==
LOC: EMR 22:15
DX: N39.0 Urinary tract infection, site not specified (principal); S46.911A Strain of unspecified muscle, fascia and tendon at shoulder and upper arm level, right arm, initial encounter; E11.9 Type 2 diabetes mellitus without complications; I10 Essential (primary) hypertension; E78.5 Hyperlipidemia, unspecified; X50.9XXA Other and unspecified overexertion or strenuous movements or postures, initial encounter; Y93.F2 Activity, caregiving, lifting; Y92.9 Unspecified place or not applicable; Y99.0 Civilian activity done for income or pay
CPT/HCPCS: 81003; 81025; 87086; 99283

== ENCOUNTER 2019-05-09 16:11 | Emergency (ER) | payer MEDICAID ==
[~2019-05-09] VITALS: Ht 167.6 cm; Wt 127.0 kg
[2019-05-09 16:20] VITALS: BP 152/103
--- NOTE | 2019-05-09 16:30 | NUR ---
ED Nurse Note: Pt came in due to headaches for the past couple of days with pressure like pain on her vagina. Denies vaginal discharge. Pt also c/o diarrhea and abd pain. AAO x4 and ambulatory. calm and cooperative.
--- NOTE | 2019-05-09 16:54 | Emergency Room Report ---
History of Present Illness General Chief Complaint: General Complaint Source: Patient Present Illness HPI 39 YO Female presents to the ED c/o 06/11 in severity pelvic pain/pressure with spotting in addition to progressive MORGAN x 3 days. pt .reports she doesn't really get her period after having children. She is with 2previous C-Sections. She denies N/V/F/C. Denies constipation. She reports 2 episodes of diarrhea. Denies recent abx use. Denies recent travel. Hx of DM. Denies blood in the stool or black tarry stool. Denies hx of STI's. Denies vaginal d/c other than spotting. Pt. denies external vaginal lesion or swollen tender lymph nodes. Denies CP, Palpitations, LOC, AMS, dizziness, Changes in Vision, Sensation, paresthesias, or a sudden severe headache. Denies urinary frequency , dysuria, or urgency. Allergies: Coded Allergies: No Known Allergies (Verified Allergy, Unknown, 04/10/07) Patient History Past Medical History: see triage record, DM Past Surgical History: none Pertinent Family History: none Last Menstrual Period: unk Now: No Reviewed Nursing Documentation: PMH: Agreed; PSxH: Agreed Nursing Documentation-PMH Past Medical History: No History, Except For Hx Cardiac Problems: Yes - Hyperlipidimia, Cardiac cath ablation 2016. Hx Hypertension: Yes Hx Pacemaker: No Hx Asthma: No - Bronchitis Hx COPD: No Hx Diabetes: Yes Hx Cancer: No Hx Gastrointestinal Problems: No Hx Dialysis: No Hx Neurological Problems: No Hx Cerebrovascular Accident: No Hx Seizures: No Review of Systems All Other Systems: negative except mentioned in HPI Physical Exam Vital Signs Date Time Temp Pulse Resp B/P (MAP) Pulse Ox O2 Delivery O2 Flow Rate FiO2 05/09/19 16:20 97.5 94 18 152/103 (119) 96 Room Air Sp02 EP Interpretation: reviewed, normal General Appearance: no apparent distress, alert, GCS 15, non-toxic, obese Head: normocephalic, atraumatic Eyes: bilateral eye normal inspection, bilateral eye PERRL, bilateral eye other - no photophobia ENT: hearing grossly normal, normal voice Neck: full range of motion, no meningismus Respiratory: lungs clear, normal breath sounds, speaking full sentences Cardiovascular #1: regular rate, rhythm Gastrointestinal: normal bowel sounds, non tender, soft, non-distended, no guarding Rectal: deferred Genitourinary: normal inspection, no CVA tenderness, adnexa normal, ext genitalia/vag normal, other - scant dark blood in the vaginal vault. Musculoskeletal: back normal, gait/station normal, normal range of motion, non- tender Neurologic: alert, oriented x3, responsive, motor strength/tone normal, sensory intact, normal gait, speech normal, grossly normal Psychiatric: judgement/insight normal Skin: no rash Lymphatic: no adenopathy Medical Decision Making PA Attestation Dr. Hernandes is my supervising Physician whom patient management has been discussed with. Diagnostic Impression: Primary Impression: Headache Qualified Codes: R51 - Headache Additional Impressions: Pelvic pain Blood glucose elevated ER Course 39 YO Female presents to the ED c/o 06/11 in severity pelvic pain/pressure with spotting in addition to progressive MORGAN x 3 days. pt .reports she doesn't really get her period after having children. She is with 2previous C-Sections. She denies N/V/F/C. Denies constipation. She reports 2 episodes of diarrhea. Denies recent abx use. Denies recent travel. Hx of DM. Denies blood in the stool or black tarry stool. Denies hx of STI's. Denies vaginal d/c other than spotting. Pt. denies external vaginal lesion or swollen tender lymph nodes. Denies CP, Palpitations, LOC, AMS, dizziness, Changes in Vision, Sensation, paresthesias, or a sudden severe headache. Denies urinary frequency , dysuria, or urgency. Ddx considered but are not limited to migraine, SAH, Pseudomotor Cerebri,, Mass lesion, Cluster MORGAN, Tension MORGAN,UTI, uterus prolapse, Cancer, Vaginitis, DUB, Fibroid just to name a few. Vital signs: are WNL, pt. is afebrile H&PE are most consistent with headache and pelvic pain --no focal neurological deficits no acute onset of headache patient does not appear to be in distress, no evidence to suggest acute abdomen on physical exam. ORDERS: - CBC: WNL -BMP: elevated glucose of 337 -UA: moderate glucose and blood -Urine Hcg: negative Pelvic US: nabothian cysts of the cervix, and several follicular cysts with mild free fluid in the cul-de-sac ED INTERVENTIONS: - 1 liter NS IV Bolus , additional 500ml given. - Tylenol PO -Reglan PO -Metformin 1g PO DISCHARGE: At this time pt. is stable for d/c to home. Will provide printed patient care instructions, and any necessary prescriptions. Care plan and follow up instructions have been discussed with the patient prior to discharge. Labs Test 05/09/19 16:45 White Blood Count 9.1 K/UL (4.8-10.8) Red Blood Count 4.56 M/UL (4.20-5.40) Hemoglobin 13.4 G/DL (12.0-16.0) Hematocrit 38.2 % (37.0-47.0) Mean Corpuscular Volume 84 FL (80-99) Mean Corpuscular Hemoglobin 29.4 PG (27.0-31.0) Mean Corpuscular Hemoglobin Concent 35.0 G/DL (32.0-36.0) Red Cell Distribution Width 11.7 % (11.6-14.8) Platelet Count 314 K/UL (150-450) Mean Platelet Volume 5.1 FL (6.5-10.1) Neutrophils (%) (Auto) 54.1 % (45.0-75.0) Lymphocytes (%) (Auto) 35.4 % (20.0-45.0) Monocytes (%) (Auto) 5.9 % (1.0-10.0) Eosinophils (%) (Auto) 3.9 % (0.0-3.0) Basophils (%) (Auto) 0.7 % (0.0-2.0) Urine Color Pale yellow Urine Appearance Clear Urine pH 5 (4.5-8.0) Urine Specific [place] 1.015 (1.005-1.035) Urine Protein 3+ (NEGATIVE) Urine Glucose (UA) 4+ (NEGATIVE) Urine Ketones Negative (NEGATIVE) Urine Blood 5+ (NEGATIVE) Urine Nitrite Negative (NEGATIVE) Urine Bilirubin Negative (NEGATIVE) Urine Urobilinogen Normal MG/DL (0.0-1.0) Urine Leukocyte Esterase Negative (NEGATIVE) Urine RBC 2-4 /HPF (0 - 2) Urine WBC 2-4 /HPF (0 - 2) Urine Squamous Epithelial Cells Moderate /LPF (NONE/OCC) Urine Bacteria Few /HPF (NONE) Urine HCG, Qualitative Negative (NEGATIVE) Sodium Level 141 MMOL/L (136-145) Potassium Level 3.7 MMOL/L (3.5-5.1) Chloride Level 105 MMOL/L (98-107) Carbon Dioxide Level 27 MMOL/L (21-32) Anion Gap 9 mmol/L (5-15) Blood Urea Nitrogen 14 mg/dL (7-18) Creatinine 0.7 MG/DL (0.55-1.30) Estimat Glomerular Filtration Rate > 60 mL/min (>60) Glucose Level 337 MG/DL (74-106) Calcium Level 9.2 MG/DL (8.5-10.1) CT/MRI/US Diagnostic Results CT/MRI/US Diagnostic Results : Imaging Test Ordered: Pelvic US-Complete Impression " No acute processes, several follicular cysts as well as nabothian cysts on the cervix. Some mild free-fluid in the cul-de-sac. " Per official radiology report- Please see report for specific details. Last Vital Signs Date Time Temp Pulse Resp B/P (MAP) Pulse Ox O2 Delivery O2 Flow Rate FiO2 05/09/19 16:30 89 20 Room Air 05/09/19 16:20 97.5 152/103 (119) 96 Status: improved Disposition: HOME, SELF-CARE Condition: Stable Scripts Acetaminophen* (TYLENOL EXTRA STRENGTH*) 500 Mg Tablet 500 MG ORAL Q6H, #30 TAB 0 Refills Prov: Chelsea Morales 05/09/19 Referrals: NON PHYSICIAN (PCP) Patient Instructions: Blood Glucose Monitoring, Adult Chelsea Morales May 09, 2019 16:54
[2019-05-09 17:00] LABS: APPEARANCE,URINE CLEAR; BILIRUBIN, URINE NEGATIVE (NEGATIVE); COLOR,URINE PALE YELLOW; GLUCOSE, URINE (UA) 4+ (NEGATIVE); KETONES,URINE NEGATIVE (NEGATIVE); LEUKOCYTE ESTERASE ,URINE NEGATIVE (NEGATIVE); NITRITE,URINE NEGATIVE (NEGATIVE); PH,URINE 5 (4.5-8.0); PROTEIN,URINE 3+ (NEGATIVE); UROBILINOGEN,URINE NORMAL MG/DL (0.0-1.0)
[2019-05-09 17:03] LABS: BASOPHILS % (AUTO) 0.7 % (0.0-2.0); EOSINOPHILS % (AUTO) 3.9 % (0.0-3.0); HEMATOCRIT 38.2 % (37.0-47.0); HEMOGLOBIN 13.4 G/DL (12.0-16.0); LYMPHOCYTES % (AUTO) 35.4 % (20.0-45.0); MEAN CORPUSCULAR VOLUME 84 FL (80-99); MONOCYTES % (AUTO) 5.9 % (1.0-10.0); NEUTROPHILS % (AUTO) 54.1 % (45.0-75.0); PLATELET COUNT 314 K/UL (150-450); RED BLOOD COUNT 4.56 M/UL (4.20-5.40); RED CELL DISTRIBUTION WIDTH 11.7 % (11.6-14.8); WHITE BLOOD COUNT 9.1 K/UL (4.8-10.8)
[2019-05-09 17:13] LABS: ANION GAP 9 mmol/L (5-15); BLOOD UREA NITROGEN 14 mg/dL (7-18); CALCIUM 9.2 MG/DL (8.5-10.1); CARBON DIOXIDE 27 MMOL/L (21-32); CHLORIDE 105 MMOL/L (98-107); CREATININE 0.7 MG/DL (0.55-1.30); POTASSIUM 3.7 MMOL/L (3.5-5.1); SODIUM 141 MMOL/L (136-145)
--- NOTE | 2019-05-09 18:22 | NUR ---
ED Nurse Note: Pt taken to US via wheelchair.
--- NOTE | 2019-05-09 19:08 | NUR ---
HAND-OFF: Report given to Dennise VALLES.
--- NOTE | 2019-05-09 19:10 | NUR ---
ED Nurse Note: Got report from HAI Duran . Patient came back from US, VSS at this time, AAO x4, deny any pain, patient is calm and cooperative.
--- NOTE | 2019-05-09 20:01 | Diagnostic Imaging Report ---
EXAM: US Pelvis Complete, Transabdominal CLINICAL HISTORY: PAIN TECHNIQUE: Real-time transabdominal pelvic ultrasound (complete) with image documentation. COMPARISON: CT abdomen/pelvis on 12/05/2018 FINDINGS: Uterus: Measures 10.0 x 5.1 x 5.3 cm. Nabothian cysts in the cervix. Endometrium measures 5.6 mm. Right ovary: Measures 3.2 x 1.6 x 2.5 cm. Normal appearance with multiple follicles. Dominant follicle measuring 2.3 cm. Normal color Doppler flow. Left ovary: Measures 3.1 x 2.0 x 2.4 cm. Normal appearance with multiple follicles. Normal color Doppler flow. Other: Trace free fluid in the cul-de-sac which may be physiologic. No adnexal mass. No abnormality in the region of pain in the vaginal area. IMPRESSION: No acute abnormality.
[2019-05-09] MEDS ORDERED: TYLENOL EXTRA500 MG ORAL (20:14)
[2019-05-09] MEDS ORDERED: metFORMIN 500mg tab ORAL SCH ×2 (20:15→20:30)
[2019-05-09 21:00] VITALS: BP 152/103
== END 2019-05-09 21:01 | disposition home or self-care (01) ==
LOC: EMR 16:37
DX: R51 Headache (principal); R10.2 Pelvic and perineal pain; E11.9 Type 2 diabetes mellitus without complications; E78.5 Hyperlipidemia, unspecified; I10 Essential (primary) hypertension; N88.8 Other specified noninflammatory disorders of cervix uteri
CPT/HCPCS: 36415; 76856; 80048; 81003; 81025; 85025; 96360; 99284

== ENCOUNTER 2019-05-18 03:34 | Emergency (ER) | payer MEDICAID ==
[~2019-05-18] VITALS: Ht 167.6 cm; Wt 127.0 kg
[~2019-05-18 03:34] MED LIST changes: +TYLENOL EXTRA500 MG ORAL
[2019-05-18 03:43] VITALS: BP 145/88
--- NOTE | 2019-05-18 03:44 | NUR ---
ED Nurse Note: Patient walked into ED c/o right flank pain that started an hour prior to arrival. patient states that she got up, ambulated to the bathroom and began feeling pain. patient is alert and oriented x4, rates her pain a 10/10, denies any injury by falling. will wait for further orders
[2019-05-18] MEDS ORDERED: Tylenol #3 tab (300mg/30mg) ORAL ONE (04:00)
[2019-05-18 04:25] LABS: APPEARANCE,URINE CLEAR; BILIRUBIN, URINE NEGATIVE (NEGATIVE); COLOR,URINE PALE YELLOW; GLUCOSE, URINE (UA) 2+ (NEGATIVE); KETONES,URINE NEGATIVE (NEGATIVE); LEUKOCYTE ESTERASE ,URINE 1+ (NEGATIVE); NITRITE,URINE NEGATIVE (NEGATIVE); PH,URINE 6 (4.5-8.0); PROTEIN,URINE 2+ (NEGATIVE); UROBILINOGEN,URINE NORMAL MG/DL (0.0-1.0)
--- NOTE | 2019-05-18 04:36 | NUR ---
ED Nurse Note: Went down to CT.
--- NOTE | 2019-05-18 04:59 | NUR ---
ED Nurse Note: Came back from CT.
[2019-05-18 05:40] VITALS: BP 136/85
--- NOTE | 2019-05-18 05:53 | Emergency Room Report ---
History of Present Illness General Chief Complaint: Back Pain-No Injury Source: Patient Present Illness HPI 39-year-old female presents ED for evaluation. Complaining of right flank pain which started last night. Dull, 9 out of 10, nonradiating. Also complaining of headache which she believes is attributed to the back pain. Denies photophobia or blurry vision. Denies nausea or vomiting. Denies neck stiffness. Denies fevers or chills. Denies abdominal pain. No other aggravating relieving factors. Denies any other associated symptoms Allergies: Coded Allergies: No Known Allergies (Verified Allergy, Unknown, 04/10/07) Patient History Past Medical History: DM, HTN Past Surgical History: none Pertinent Family History: none Social History: Denies: smoking, alcohol use, drug use Last Menstrual Period: unk Now: No Immunizations: UTD Reviewed Nursing Documentation: PMH: Agreed; PSxH: Agreed Nursing Documentation-PMH Past Medical History: No History, Except For Hx Cardiac Problems: Yes - Hyperlipidimia, Cardiac cath ablation 2016. Hx Hypertension: Yes Hx Pacemaker: No Hx Asthma: No - Bronchitis Hx COPD: No Hx Diabetes: Yes Hx Cancer: No Hx Gastrointestinal Problems: No Hx Dialysis: No Hx Neurological Problems: No Hx Cerebrovascular Accident: No Hx Seizures: No Review of Systems All Other Systems: negative except mentioned in HPI Physical Exam Vital Signs Date Time Temp Pulse Resp B/P (MAP) Pulse Ox O2 Delivery O2 Flow Rate FiO2 05/18/19 03:36 98.2 77 18 145/88 (107) 97 Room Air Sp02 EP Interpretation: reviewed, normal General Appearance: no apparent distress, alert, GCS 15, non-toxic, obese Head: normocephalic, atraumatic Eyes: bilateral eye normal inspection, bilateral eye PERRL ENT: hearing grossly normal, normal pharynx, no angioedema, normal voice Neck: full range of motion, supple, no meningismus, supple/symm/no masses Respiratory: chest non-tender, lungs clear, normal breath sounds, speaking full sentences Cardiovascular #1: regular rate, rhythm, no edema Cardiovascular #2: 2+ carotid (R), 2+ carotid (L), 2+ radial (R), 2+ radial (L) , 2+ dorsalis pedis (R), 2+ dorsalis pedis (L) Gastrointestinal: normal bowel sounds, non tender, soft, non-distended, no guarding, no rebound Rectal: deferred Genitourinary: normal inspection, CVA tenderness (R) Musculoskeletal: back normal, gait/station normal, normal range of motion, non- tender Neurologic: alert, oriented x3, responsive, motor strength/tone normal, sensory intact, speech normal Psychiatric: judgement/insight normal, memory normal, mood/affect normal, no suicidal/homicidal ideation Reflexes: 3+ bicep (R), 3+ bicep (L), 3+ tricep (R), 3+ tricep (L), 3+ knee (R) , 3+ knee (L) Lymphatic: no adenopathy Medical Decision Making Diagnostic Impression: Primary Impression: Kidney stone on right side ER Course Hospital Course 39 yo F presents with R flank pain Differential diagnosis includes- appendicitis, cholecystitis, kidney stone, pyelonephritis Clinical course Patient placed on stretcher. After initial history and physical I ordered UA, pain meds CT scan Labs - UA - hematuria CT scan shows nonobstructing stone on right vs renal cyst. I discussed findings with patient. Explained that renal cyst versus kidney stone is a possibility. Recommend urology follow-up as outpatient. States she has a PMD to get referral I feel this is a highly complex case requiring extensive working including EKG/ Rhythm strip, Xray/CT/US, Blood/urine lab work, repeat exams while in ED, and administration of strong opiates/narcotics for pain control, admission to hospital or close patient follow up. Diagnosis - kidney stone on right side Stable and discharged to home with Rx Motrin, tylenol #3. Followup with PMD. Return to ED if symptoms recur or worsen Labs Test 05/18/19 03:58 Urine Color Pale yellow Urine Appearance Clear Urine pH 6 (4.5-8.0) Urine Specific [place] 1.010 (1.005-1.035) Urine Protein 2+ (NEGATIVE) Urine Glucose (UA) 2+ (NEGATIVE) Urine Ketones Negative (NEGATIVE) Urine Blood 5+ (NEGATIVE) Urine Nitrite Negative (NEGATIVE) Urine Bilirubin Negative (NEGATIVE) Urine Urobilinogen Normal MG/DL (0.0-1.0) Urine Leukocyte Esterase 1+ (NEGATIVE) Urine RBC 15-20 /HPF (0 - 2) Urine WBC 2-4 /HPF (0 - 2) Urine Squamous Epithelial Cells Moderate /LPF (NONE/OCC) Urine Bacteria Moderate /HPF (NONE) Urine HCG, Qualitative Negative (NEGATIVE) CT/MRI/US Diagnostic Results CT/MRI/US Diagnostic Results : Imaging Test Ordered: CT A/P Impression 6.8 x 6.1 cm right renal cyst with focal peripheral wall calcification versus adjacent nonobstructing calculi measuring up to 4 mm. This is similar to the prior CT abdomen and pelvis dated 12/05/18. Hepatic steatosis. Status post cholecystectomy. Normal appendix. No other acute findings. Last Vital Signs Date Time Temp Pulse Resp B/P (MAP) Pulse Ox O2 Delivery O2 Flow Rate FiO2 05/18/19 04:32 98.2 05/18/19 03:43 84 18 145/88 97 Room Air Status: improved Disposition: HOME, SELF-CARE Condition: Stable Scripts Acetaminophen With Codeine (T#3) (TYLENOL #3 TAB*) Y Tab 1 TAB ORAL Q8H PRN for For Pain, #12 TAB Prov: Fly Thompson MD 05/18/19 Ibuprofen* (MOTRIN*) 600 Mg Tablet 600 MG ORAL Q8H PRN for For Pain, #30 TAB 0 Refills Prov: Fly Thompson MD 05/18/19 Referrals: NON PHYSICIAN (PCP) Fly Thompson MD May 18, 2019 05:53
--- NOTE | 2019-05-18 05:55 | NUR ---
ED Nurse Note: Pt seen sleeping in bed. breathing even and unlabored. no sob. no further order at this time.
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
[2019-05-18] MEDS ORDERED: IBUPROFEN600 MG ORAL (06:13)
[2019-05-18] MEDS ORDERED: ACETAMINOPHEN-1 EAC1 ORAL (06:13)
[2019-05-18 06:25] VITALS: BP 138/79
[2019-05-18 06:26] VITALS: BP 138/79
== END 2019-05-18 06:26 | disposition home or self-care (01) ==
LOC: EMR 03:49
DX: N20.0 Calculus of kidney (principal); E11.9 Type 2 diabetes mellitus without complications; I10 Essential (primary) hypertension; E78.5 Hyperlipidemia, unspecified
CPT/HCPCS: 74176; 81003; 81025; 87086; Z7502; 99284

== ENCOUNTER 2019-05-22 00:45 | Emergency (ER) | payer MEDICAID ==
[~2019-05-22] VITALS: Ht 167.6 cm; Wt 127.0 kg
--- NOTE | 2019-05-22 00:58 | NUR ---
ED Nurse Note: pt walked in to ED. C/o pain to left great toe (toenail). the toenail was lifted accidentally. pain 8/10. no active bleeding noted. pt is alert x4.
--- NOTE | 2019-05-22 01:16 | Emergency Room Report ---
History of Present Illness General Chief Complaint: Lower Extremity Injury Source: Patient Present Illness HPI Disclaimer: Please note that this report is being documented using [employer] technology. This can lead to erroneous entry secondary to incorrect interpretation by the dictating instrument. HPI: 39-year-old female presents for evaluation of left great toe injury. The patient was wearing open toe shoes and slipped while walking outside. She was large acrylic nails on her toenails 1 of which was caught against the ground causing a partial avulsion. Toenail remains attached. Noted minor bleeding and significant pain. Denied fall or other injury. No other complaints at this time. PMH: Diabetes, hypertension, obesity, hyperlipidemia PSH: See chart Allergies: None Social Hx: Denies any drug or alcohol abuse Allergies: Coded Allergies: No Known Allergies (Verified Allergy, Unknown, 04/10/07) Patient History Now: No Nursing Documentation-PMH Past Medical History: No History, Except For Hx Cardiac Problems: Yes - Hyperlipidimia, Cardiac cath ablation 2016. Hx Hypertension: Yes Hx Pacemaker: No Hx Asthma: No - Bronchitis Hx COPD: No Hx Diabetes: Yes Hx Cancer: No Hx Gastrointestinal Problems: No Hx Dialysis: No Hx Neurological Problems: No Hx Cerebrovascular Accident: No Hx Seizures: No Review of Systems All Other Systems: negative except mentioned in HPI Physical Exam Vital Signs Date Time Temp Pulse Resp B/P (MAP) Pulse Ox O2 Delivery O2 Flow Rate FiO2 05/22/19 00:51 98.2 72 14 189/91 (123) 96 Room Air General: Awake and alert, no acute distress Skin: Intact. No abrasions, laceration or rash over the exposed skin MSK: Partial avulsion of the toenail on the left great toe. 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 [place] nail remains attached throughout the eponychial fold though partially avulsed on the lateral nail fold and almost completely avulsed on the medial nail fold. No bleeding, visible portion of the underlying nailbed does not show significant trauma Neuro: Awake and alert. Mentating appropriately. Medical Decision Making Diagnostic Impression: Primary Impression: Toenail avulsion ER Course 39-year-old female presents for evaluation of partially avulsed left great toenail. Nail remains attached to the hyponychial fold and is only partially avulsed at the lateral and medial nail folds. The nail was tacked down with Dermabond and bandaged. The patient will follow-up with her PMD and possible referral to orthopedic surgery as needed. She will use Tylenol Motrin for pain. Motrin given in the emergency department. We discussed reasons to return to the emergency department and need to follow-up with PMD next week. She understands and agrees with the treatment plan was discharged home Last Vital Signs Date Time Temp Pulse Resp B/P (MAP) Pulse Ox O2 Delivery O2 Flow Rate FiO2 05/22/19 00:51 98.2 72 14 189/91 (123) 96 Room Air Disposition: HOME, SELF-CARE Condition: Improved Patient Instructions: Nail Avulsion Additional Instructions: Please keep the glue in place and protect the foot from repeat injury until it is time to properly heal. Follow-up with your doctor next week for reevaluation. Return to the emergency department new or worsening symptoms. Use Tylenol and Motrin for pain and swelling Gold Hernandes MD May 22, 2019 01:16
[2019-05-22 01:25] VITALS: BP 158/92
--- NOTE | 2019-05-22 01:25 | NUR ---
ER DISCHARGE NOTE: Patient is cleared to be discharged per ERMD, pt is aox4, on room air, with stable vital signs. pt was given dc and instructions, pt was able to verbalize understanding, pt id band removed without complications. pt is able to ambulate with steady gait. pt took all belongings.
[2019-05-25] MEDS ORDERED: CLEOCIN150 MG ORAL (18:38)
[2019-05-25] MEDS ORDERED: NIZORAL 2% C1 APPLIC TOPIC (18:38)
[2019-05-25] MEDS ORDERED: MUPIROCIN22 GM TOPIC (18:38)
[2019-05-25] MEDS ORDERED: ACETAMINOPHEN-1 EAC1 ORAL (18:39)
== END 2019-05-22 01:25 | disposition home or self-care (01) ==
LOC: EMR 01:07
DX: S91.202A Unspecified open wound of left great toe with damage to nail, initial encounter (principal); E11.9 Type 2 diabetes mellitus without complications; I10 Essential (primary) hypertension; E78.5 Hyperlipidemia, unspecified; E66.9 Obesity, unspecified; Z68.42 Body mass index [BMI] 45.0-49.9, adult; W23.1XXA Caught, crushed, jammed, or pinched between stationary objects, initial encounter; Y92.9 Unspecified place or not applicable
CPT/HCPCS: 99282

== ENCOUNTER 2019-07-06 21:30 | Emergency (ER) | payer MEDICAID ==
[~2019-07-06] VITALS: Ht 167.6 cm; Wt 133.8 kg
[~2019-07-06 21:30] MED LIST changes: +CLEOCIN150 MG ORAL; +MUPIROCIN22 GM TOPIC; +NIZORAL 2% C1 APPLIC TOPIC
[2019-07-06 21:35] VITALS: BP 123/79
--- NOTE | 2019-07-06 21:35 | NUR ---
ED Nurse Note: walk-in patient with complaints of bronchitis flair, SOB x 1 day. patient stated inhaler ineffective.
[2019-07-06] MEDS ORDERED: PREDNISONE50 MG ORAL (22:14)
--- NOTE | 2019-07-06 22:14 | Emergency Room Report ---
History of Present Illness General Chief Complaint: Upper Respiratory Illness Source: Patient Present Illness HPI 39-year-old female history of reactive airway disease, presents with dyspnea, cough, congestion x1 day no aggravating or relieving factors severity is mild, constant, patient is requesting a breathing treatment as well as some steroids, which tend to help. She denies any chest pain abdominal pain patient also wants a note for work, fever/chills patient presents for evaluation Allergies: Coded Allergies: No Known Allergies (Verified Allergy, Unknown, 04/10/07) Patient History Past Medical History: see triage record Last Menstrual Period: irreg Now: No : 3 Para: 2 Reviewed Nursing Documentation: PMH: Agreed; PSxH: Agreed Nursing Documentation-PMH Hx Cardiac Problems: Yes - Hyperlipidimia, Cardiac cath ablation 2016. Hx Hypertension: Yes Hx Pacemaker: No Hx COPD: No Hx Diabetes: Yes Hx Cancer: No Hx Gastrointestinal Problems: No Hx Dialysis: No Hx Neurological Problems: No Hx Cerebrovascular Accident: No Hx Seizures: No Review of Systems All Other Systems: negative except mentioned in HPI Physical Exam Vital Signs Date Time Temp Pulse Resp B/P (MAP) Pulse Ox O2 Delivery O2 Flow Rate FiO2 07/06/19 21:33 97.9 77 22 123/79 (94) 92 Room Air Sp02 EP Interpretation: reviewed, normal General Appearance: well appearing, no apparent distress, alert Head: normocephalic, atraumatic Eyes: bilateral eye PERRL, bilateral eye EOMI ENT: uvula midline, moist mucus membranes, nasal congestion Neck: supple, thyroid normal, supple/symm/no masses Respiratory: no respiratory distress, no retraction, no accessory muscle use, decreased breath sounds Cardiovascular #1: normal peripheral pulses, regular rate, rhythm, no edema, no gallop, no murmur Gastrointestinal: non tender, soft, no guarding, no rebound Musculoskeletal: normal inspection Neurologic: alert, oriented x3 Psychiatric: mood/affect normal Skin: no rash, warm/dry Medical Decision Making Diagnostic Impression: Primary Impression: Upper respiratory infection Qualified Codes: J06.9 - Acute upper respiratory infection, unspecified ER Course 39-year-old female presents with cough, congestion, most likely viral syndrome, patient improved with breathing treatments, steroids Patient most likely with acute bronchitis reactive airway disease worsened by upper respiratory infection Disposition home with return precautions Last Vital Signs Date Time Temp Pulse Resp B/P (MAP) Pulse Ox O2 Delivery O2 Flow Rate FiO2 07/06/19 21:33 97.9 77 22 123/79 (94) 92 Room Air Disposition: HOME, SELF-CARE Condition: Stable Scripts Albuterol Sulfate* (ALBUTEROL SULFATE MDI*) 8.5 Gm Hfa.aer.ad 2 PUFF INH Q4H PRN for cough/wheezing, #1 EA 0 Refills Prov: Nasir Argueta MD 07/06/19 Prednisone* (PREDNISONE*) 50 Mg Tablet 50 MG ORAL DAILY, #4 TAB 0 Refills Prov: Nasir Argueta MD 07/06/19 Referrals: [facility] Sean Gray. [facility] Departure Forms: Return to Work Return to Work Date: Jul 13, 2019 Patient Instructions: Upper Respiratory Infection, Adult Additional Instructions: The patient was provided with discharge instructions, notified to follow-up with a primary care doctor and or specialist in the next 24-48 hours, and to return to the ED if they have worsening of their symptoms. Please note that this report is being documented using [employer] technology. This can lead to erroneous entry secondary to incorrect interpretation by the dictating instrument. Nasir Argueta MD Jul 06, 2019 22:14
[2019-07-06] MEDS ORDERED: Albuterol ud Inhalation HHN ONE (22:15)
[2019-07-06] MEDS ORDERED: Ipratropium 0.02% Inh Soln 2.5ml UD HHN ONE (22:15)
[2019-07-06] MEDS ORDERED: ALBUTEROL SULF8.5 GM INH (23:23)
--- NOTE | 2019-07-06 23:29 | NUR ---
Daniel arriola in EDM - 07/06/19 at 2340 by KDEARING ED Nurse Note: Pt refusing 3rd breathing tx, RT aware, lung sounds diminished, pt states " i feel better but i feel shakey" ERMD notified
[2019-07-06 23:40] VITALS: BP 123/79
--- NOTE | 2019-07-06 23:40 | NUR ---
ER DISCHARGE NOTE: Patient is cleared to be discharged per ERMD, pt is aox4, on room air, with stable vital signs. pt was given dc and prescription instructions, pt was able to verbalize understanding, pt id band removed. pt is able to ambulate with steady gait. pt took all belongings.
== END 2019-07-06 23:40 | disposition home or self-care (01) ==
LOC: EMR 22:10
DX: J06.9 Acute upper respiratory infection, unspecified (principal); J45.909 Unspecified asthma, uncomplicated; E11.9 Type 2 diabetes mellitus without complications; I10 Essential (primary) hypertension; E78.5 Hyperlipidemia, unspecified
CPT/HCPCS: 94640; 94664; J7512; Z7502; 99284

== ENCOUNTER 2019-08-10 22:20 | Emergency (ER) | payer MEDICAID ==
[~2019-08-10] VITALS: Ht 170.2 cm; Wt 131.5 kg
[~2019-08-10 22:20] MED LIST changes: +PREDNISONE50 MG ORAL
[2019-08-10 22:34] VITALS: BP 139/95
--- NOTE | 2019-08-10 22:34 | NUR ---
ED Nurse Note: Pt aaox4, vss with no acute distress. Pt has no skin issues and is cooperative. patient ambulated to ed c/o lower back pain x 2 days. denies trauma or fall..
[2019-08-10] MEDS ORDERED: Methocarbamol 750mg tab ORAL ONE (22:45)
[2019-08-10 22:52] LABS: APPEARANCE,URINE CLEAR; BILIRUBIN, URINE NEGATIVE (NEGATIVE); COLOR,URINE PALE YELLOW; GLUCOSE, URINE (UA) 4+ (NEGATIVE); KETONES,URINE NEGATIVE (NEGATIVE); LEUKOCYTE ESTERASE ,URINE NEGATIVE (NEGATIVE); NITRITE,URINE NEGATIVE (NEGATIVE); PH,URINE 5 (4.5-8.0); PROTEIN,URINE 3+ (NEGATIVE); UROBILINOGEN,URINE NORMAL MG/DL (0.0-1.0)
--- NOTE | 2019-08-10 23:00 | NUR ---
ED Nurse Note: Pt is resting well.
[2019-08-10] MEDS ORDERED: LIDODERM700 M1 TOPIC (23:27)
[2019-08-10] MEDS ORDERED: ROBAXIN-750750 MG PO (23:27)
[2019-08-10] MEDS ORDERED: IBUPROFEN600 MG ORAL (23:27)
[2019-08-10 23:31] VITALS: BP 141/96
--- NOTE | 2019-08-10 23:31 | NUR ---
Note brianaone in EDM - 08/11/19 at 0433 by DIANA ER DISCHARGE NOTE: Patient is cleared to be discharged per ERMD, pt is aox4, on room air, with stable vital signs. pt was given dc and prescription instructions, pt was able to verbalize understanding, pt id band removed without complications. pt is able to ambulate with steady gait. pt took all belongings. Pt states pain is 1/10. Pt left ED via private car.
--- NOTE | 2019-08-10 23:31 | NUR ---
ER DISCHARGE NOTE: Patient is cleared to be discharged per ERMD, pt is aox4, on room air, with stable vital signs. pt was given dc and prescription instructions, pt was able to verbalize understanding, pt id band and iv site removed without complications. pt is able to ambulate with steady gait. pt took all belongings. Pt stated she has a place to go and refused to say where. Pt felt safe and left ED with no issues.
--- NOTE | 2019-08-11 00:39 | Emergency Room Report ---
History of Present Illness General Chief Complaint: Back Pain-No Injury Source: Patient Present Illness HPI 39-year-old female presents ED for evaluation. Complaining of back pain for the last 2 days. Pain is lower, dull, 7 out of 10, nonradiating. Worse with twisting and bending. Denies fevers or chills. Denies dysuria or hematuria. Denies any recent fall or injury. No other aggravating relieving factors. Denies any other associated symptoms Allergies: Coded Allergies: No Known Allergies (Verified Allergy, Unknown, 04/10/07) Patient History Past Medical History: DM, CAD Past Surgical History: none Pertinent Family History: none Social History: Denies: smoking, alcohol use, drug use Now: No Immunizations: UTD Reviewed Nursing Documentation: PMH: Agreed; PSxH: Agreed Nursing Documentation-PMH Past Medical History: No History, Except For Hx Cardiac Problems: Yes - Hyperlipidimia, Cardiac cath ablation 2016. Hx Hypertension: Yes Hx Pacemaker: No Hx COPD: No Hx Diabetes: Yes Hx Cancer: No Hx Gastrointestinal Problems: No Hx Dialysis: No Hx Neurological Problems: No Hx Cerebrovascular Accident: No Hx Seizures: No Review of Systems All Other Systems: negative except mentioned in HPI Physical Exam Vital Signs Date Time Temp Pulse Resp B/P (MAP) Pulse Ox O2 Delivery O2 Flow Rate FiO2 08/10/19 22:28 98.1 79 14 146/97 (113) 95 Room Air Sp02 EP Interpretation: reviewed, normal General Appearance: no apparent distress, alert, GCS 15, non-toxic, obese Head: normocephalic, atraumatic Eyes: bilateral eye normal inspection, bilateral eye PERRL ENT: hearing grossly normal, normal pharynx, no angioedema, normal voice Neck: full range of motion, supple/symm/no masses Respiratory: chest non-tender, lungs clear, normal breath sounds, speaking full sentences Cardiovascular #1: regular rate, rhythm, no edema Cardiovascular #2: 2+ carotid (R), 2+ carotid (L), 2+ radial (R), 2+ radial (L) , 2+ dorsalis pedis (R), 2+ dorsalis pedis (L) Gastrointestinal: normal bowel sounds, non tender, soft, non-distended, no guarding, no rebound Rectal: deferred Genitourinary: normal inspection, no CVA tenderness Musculoskeletal: normal range of motion, gait/station normal, non-tender, tender - paraspinal lumbar tenderness Neurologic: alert, motor strength/tone normal, oriented x3, sensory intact, responsive, speech normal Psychiatric: judgement/insight normal, memory normal, mood/affect normal, no suicidal/homicidal ideation Reflexes: 3+ bicep (R), 3+ bicep (L), 3+ tricep (R), 3+ tricep (L), 3+ knee (R) , 3+ knee (L) Skin: no rash Lymphatic: no adenopathy Medical Decision Making Diagnostic Impression: Primary Impression: Back pain Qualified Codes: M54.5 - Low back pain; G89.29 - Other chronic pain ER Course Hospital Course 39-year-old female presents ED complaining of lower back pain. No evidence of trauma Differential diagnoses include: pyelonephritis, kidney stone, muscle strain, Lspine fracture Clinical course Patient placed on stretcher. After initial history and physical I ordered UA, motrin, robaxin and lidoderm patch UA negative Upon reassessment patient states pain has improved. Review of EMR patient has been here multiple times for similar back pain. I discussed this with the patient. I believe she would benefit from outpatient evaluation as well as physical therapy. I provided referrals Diagnosis - back pain Stable and discharged to home with prescription for motrin, robaxin,lidoderm. Followup with PMD. Return to ED if symptoms recur or worsen Labs Test 08/10/19 22:40 Urine Color Pale yellow Urine Appearance Clear Urine pH 5 (4.5-8.0) Urine Specific [place] 1.020 (1.005-1.035) Urine Protein 3+ (NEGATIVE) Urine Glucose (UA) 4+ (NEGATIVE) Urine Ketones Negative (NEGATIVE) Urine Blood 2+ (NEGATIVE) Urine Nitrite Negative (NEGATIVE) Urine Bilirubin Negative (NEGATIVE) Urine Urobilinogen Normal MG/DL (0.0-1.0) Urine Leukocyte Esterase Negative (NEGATIVE) Urine RBC 2-4 /HPF (0 - 2) Urine WBC 0-2 /HPF (0 - 2) Urine Squamous Epithelial Cells Few /LPF (NONE/OCC) Urine Bacteria None /HPF (NONE) Urine HCG, Qualitative Negative (NEGATIVE) Last Vital Signs Date Time Temp Pulse Resp B/P (MAP) Pulse Ox O2 Delivery O2 Flow Rate FiO2 12/9/19 23:31 98.6 15 141/96 95 Room Air 08/10/19 22:28 79 Status: improved Disposition: HOME, SELF-CARE Condition: Stable Scripts Lidocaine Patch* (Lidoderm Patch*) 1 Each Adh..patch 1 PATCH TOPIC DAILY, #7 PATCH 0 Refills Patch(es) may remain in place for up to 12 hours in any 24-hour period. Prov: Fly Thompson MD 08/10/19 Methocarbamol* (ROBAXIN-750*) 750 Mg Tablet 750 MG PO TID, #21 TAB 0 Refills Prov: Fly Thompson MD 08/10/19 Ibuprofen* (MOTRIN*) 600 Mg Tablet 600 MG ORAL Q8H PRN for For Pain, #30 TAB 0 Refills Prov: Fly Thompson MD 08/10/19 Referrals: [facility] Open 24 hour /7 days a week by Appointment Only [address] [facility] [address] Patient Instructions: Back Pain, Adult Fly Thompson MD Aug 11, 2019 00:39
== END 2019-08-10 23:31 | disposition home or self-care (01) ==
LOC: EMR 22:45
DX: M54.5 Low back pain (principal); G89.29 Other chronic pain; E78.5 Hyperlipidemia, unspecified; E11.9 Type 2 diabetes mellitus without complications; I11.9 Hypertensive heart disease without heart failure; I25.10 Atherosclerotic heart disease of native coronary artery without angina pectoris
CPT/HCPCS: 81003; 81025; Z7502; 99283

== ENCOUNTER 2019-08-26 21:21 | Emergency (ER) | payer MEDICAID ==
[~2019-08-26] VITALS: Ht 167.6 cm; Wt 127.0 kg
--- NOTE | 2019-08-26 21:42 | Emergency Room Report ---
History of Present Illness General Chief Complaint: Pain Source: Patient Present Illness HPI Patient presents with severe pain in her medial left calf area. She feels a bump there also. She denies any trauma. This has never happened to her before. She does suffer from diabetes and hypertension. The pain radiates up into her thigh area. She denies any shortness of breath cough or hemoptysis. There is no edema. She did not take any medication for this. Is a burning sharp pain and rated 10/10 at this time. No significant immobility. No risk factors for DVT. She denies numbness. No fevers, chills, sore throat, chest pain, palpitations, nausea, vomiting, diarrhea, dysuria, abdominal pain, shortness of breath, joint pain, depression, anxiety, headache. Allergies: Coded Allergies: No Known Allergies (Verified Allergy, Unknown, 04/10/07) Patient History Past Medical History: see triage record Social History: Denies: smoking Social History Narrative From home Last Menstrual Period: NA Now: No : 3 Para: 2 Reviewed Nursing Documentation: PMH: Agreed; PSxH: Agreed Nursing Documentation-PMH Past Medical History: No History, Except For Hx Cardiac Problems: Yes - Hyperlipidimia, Cardiac cath ablation 2016. Hx Hypertension: Yes Hx Pacemaker: No Hx COPD: No Hx Diabetes: Yes Hx Cancer: No Hx Gastrointestinal Problems: No Hx Dialysis: No Hx Neurological Problems: No Hx Cerebrovascular Accident: No Hx Seizures: No Review of Systems All Other Systems: negative except mentioned in HPI Physical Exam Vital Signs Date Time Temp Pulse Resp B/P (MAP) Pulse Ox O2 Delivery O2 Flow Rate FiO2 08/26/19 21:26 98.1 75 18 168/93 (118) 96 Room Air Sp02 EP Interpretation: reviewed, normal General Appearance: well appearing, no apparent distress, GCS 15 Head: normocephalic Eyes: bilateral eye normal inspection, bilateral eye PERRL, bilateral eye EOMI ENT: moist mucus membranes Neck: full range of motion, supple Respiratory: chest non-tender, lungs clear, normal breath sounds Cardiovascular #1: regular rate, rhythm Cardiovascular #2: 2+ radial (R), 2+ femoral (L), 2+ dorsalis pedis (L) Gastrointestinal: normal inspection, overweight Musculoskeletal: tenderness - Left medial calf with nodularity Neurologic: alert, motor strength/tone normal, sensory intact Psychiatric: mood/affect normal Skin: normal color, no rash, warm/dry, other - Nodularity and tenderness left calf Medical Decision Making Diagnostic Impression: Primary Impression: Superficial phlebitis ER Course Presents with left lower leg pain with a nodule. Differential includes superficial phlebitis, cellulitis, DVT amongst others. Exam is against DVT however the fact that she has pain radiating to her thigh we need to exclude DVT with noninvasive vascular study. The patient will be treated for pain. An Accu-Chek will be obtained as she has diabetes. Noninvasive vascular study inconclusive. No obvious DVT. Accu-Chek 202. Discussed results with patient. Discussed treatment plan with patient. Patient stable for outpatient observation and treatment. CT/MRI/US Diagnostic Results CT/MRI/US Diagnostic Results : Imaging Test Ordered: venous duplex Impression inconclusive exam Last Vital Signs Date Time Temp Pulse Resp B/P (MAP) Pulse Ox O2 Delivery O2 Flow Rate FiO2 08/27/19 00:40 98.4 76 16 155/86 98 Room Air Status: improved Disposition: HOME, SELF-CARE Condition: Improved Scripts Ibuprofen* (MOTRIN*) 600 Mg Tablet 600 MG ORAL Q6H PRN for For Pain, #16 TAB 0 Refills Prov: Silas Monroy MD 08/27/19 Hydrocodone Bit/Acetaminophen 5-325* (NORCO 5-325*) 1 Each Tablet 1 TAB ORAL Q6H PRN for For Pain, #8 TAB 0 Refills Prov: Silas Monroy MD 08/27/19 Silas Monroy MD Aug 26, 2019 21:42
[2019-08-26] MEDS ORDERED: oxyCODONE HCL/Acetaminophen 5/325mg ORAL ONE (21:45)
--- NOTE | 2019-08-26 21:45 | NUR ---
ED Nurse Note: Recieved pt from home, here with c/o left calf pain x 1 week, states more pain when standing and walking, denies cp or any other complaints, small nodule felt in back of leg also, pt denies sob, fevers or any other discomforts.
--- NOTE | 2019-08-26 23:25 | NUR ---
ED Nurse Note: Pt completed ultrasound, medicated for pain, sleeping inb ed, meds appear effective, will continue to monitor while waiting for pt resultws and disposition.
[2019-08-27 00:25] VITALS: BP 155/86
[2019-08-27] MEDS ORDERED: NORCO 5-325 TA1 EACH ORAL (00:38)
[2019-08-27] MEDS ORDERED: IBUPROFEN600 MG ORAL (00:38)
[2019-08-27 00:40] VITALS: BP 155/86
== END 2019-08-27 00:40 | disposition home or self-care (01) ==
LOC: EMR 21:59
DX: I80.252 Phlebitis and thrombophlebitis of left calf muscular vein (principal); E11.9 Type 2 diabetes mellitus without complications; E78.5 Hyperlipidemia, unspecified; I10 Essential (primary) hypertension
CPT/HCPCS: 99283

== ENCOUNTER 2019-10-01 23:54 | Emergency (ER) | payer MEDICAID ==
[~2019-10-01] VITALS: Ht 167.6 cm; Wt 131.5 kg
[~2019-10-01 23:54] MED LIST changes: +[UNRECOGNIZED DRUG - OTHER] TP; +[UNRECOGNIZED DRUG - OTHER] TP
[2019-10-02 00:05] VITALS: BP 141/83
--- NOTE | 2019-10-02 00:09 | NUR ---
ED Nurse Note: Pt walked in c/o n/v/d since 2 days. Pt stated she has an egg tasting emesis. Pt denies ingesting anything abnormal, denies smoking etoh drug use, denes recent travels. 04/11 abd pain. Pt denies . ao4. nad. vss. ambulates with steady gait. urine collected;sent down to lab.
--- NOTE | 2019-10-02 00:13 | Emergency Room Report ---
History of Present Illness General Chief Complaint: Nausea, Vomiting, and Diarrhea Source: Patient Present Illness [facility] This a 39-year-old female with history of diabetes high blood pressure. She presents with complaint of nausea vomiting diarrhea. Ongoing for last 2 days. Unable to keep anything down. Vomiting is nonbloody and nonbilious. Diarrhea is watery. Denies any other complaint. Has abdominal cramping pain but no localizing pain. Allergies: Coded Allergies: No Known Allergies (Verified Allergy, Unknown, 04/10/07) Patient History Past Medical History: see triage record, old chart reviewed, DM, HTN Past Surgical History: other Pertinent Family History: none Social History: Denies: smoking Last Menstrual Period: irrgular Now: No Immunizations: other Reviewed Nursing Documentation: PMH: Agreed; PSxH: Agreed Nursing Documentation-PMH Hx Cardiac Problems: Yes - Hyperlipidimia, Cardiac cath ablation 2017. Hx Hypertension: Yes Hx Pacemaker: No Hx COPD: No Hx Diabetes: Yes Hx Cancer: No Hx Gastrointestinal Problems: No Hx Dialysis: No Hx Neurological Problems: No Hx Cerebrovascular Accident: No Hx Seizures: No Review of Systems Eye: Denies: eye pain, blurred vision ENT: Denies: ear pain, nose congestion, throat swelling Respiratory: Denies: cough, shortness of breath Cardiovascular: Denies: chest pain, palpitations Gastrointestinal: Reports: abdominal pain, diarrhea, nausea, vomiting Musculoskeletal: Denies: back pain, joint pain Skin: Denies: rash Neurological: Denies: headache, numbness Endocrine: Denies: increased thirst, increased urine Hematologic/Lymphatic: Denies: easy bruising All Other Systems: negative except mentioned in HPI Physical Exam Vital Signs Date Time Temp Pulse Resp B/P (MAP) Pulse Ox O2 Delivery O2 Flow Rate FiO2 10/01/19 23:57 97.9 76 18 141/83 (102) 98 Room Air Vitals unremarkable Sp02 EP Interpretation: reviewed, normal General Appearance: well appearing, no apparent distress, alert, obese Head: normocephalic, atraumatic Eyes: bilateral eye PERRL, bilateral eye EOMI ENT: hearing grossly normal, normal pharynx Neck: full range of motion, supple, no meningismus Respiratory: chest non-tender, lungs clear, normal breath sounds Cardiovascular #1: regular rate, rhythm, no murmur Gastrointestinal: normal bowel sounds, non tender, no mass, no organomegaly, no bruit, non-distended Musculoskeletal: back normal, normal range of motion, gait/station normal Psychiatric: mood/affect normal Medical Decision Making Diagnostic Impression: Primary Impression: Nausea, vomiting, and diarrhea Additional Impressions: Abdominal pain Qualified Codes: R10.84 - Generalized abdominal pain UTI (urinary tract infection) Qualified Codes: N30.00 - Acute cystitis without hematuria ER Course Patient with vomiting and diarrhea. Most likely gastroenteritis. Abdominal exam is benign. No guarding or rebound. No evidence of acute abdomen or obstruction. Will discharge home. Last Vital Signs Date Time Temp Pulse Resp B/P (MAP) Pulse Ox O2 Delivery O2 Flow Rate FiO2 10/01/19 23:57 97.9 76 18 141/83 (102) 98 Room Air Status: improved Disposition: HOME, SELF-CARE Condition: Stable Scripts Nitrofurantoin Monohyd/M-Cryst (Nitrofurantoin [place]-Mcr 100 mg) 100 Mg Capsule 100 MG ORAL Q12H, #14 CAP Prov: Logan Gaona MD 10/02/19 Ondansetron (Zofran) 4 Mg Tablet 4 MG ORAL Q6H PRN for Nausea & Vomiting, #10 TAB 0 Refills Prov: Logan Gaona MD 10/02/19 Additional Instructions: Increase fluids. May take Pepto-Bismol for diarrhea. Follow-up with your doctor in 2-3 days if not better. Return if worse. Logan Gaona MD Oct 02, 2019 00:13
--- NOTE | 2019-10-02 00:15 | NUR ---
ED Nurse Note: iv access established. blood collected; sent down to lab. medicated pt; tolerated well.
[2019-10-02 00:31] LABS: BASOPHILS % (AUTO) 0.8 % (0.0-2.0); EOSINOPHILS % (AUTO) 4.7 % (0.0-3.0); HEMATOCRIT 38.6 % (37.0-47.0); HEMOGLOBIN 13.2 G/DL (12.0-16.0); LYMPHOCYTES % (AUTO) 34.1 % (20.0-45.0); MEAN CORPUSCULAR VOLUME 87 FL (80-99); MONOCYTES % (AUTO) 5.4 % (1.0-10.0); NEUTROPHILS % (AUTO) 55.1 % (45.0-75.0); PLATELET COUNT 305 K/UL (150-450); RED BLOOD COUNT 4.43 M/UL (4.20-5.40); RED CELL DISTRIBUTION WIDTH 11.6 % (11.6-14.8); WHITE BLOOD COUNT 10.8 K/UL (4.8-10.8)
[2019-10-02 00:42] LABS: APPEARANCE,URINE CLEAR; BILIRUBIN, URINE NEGATIVE (NEGATIVE); COLOR,URINE PALE YELLOW; GLUCOSE, URINE (UA) 4+ (NEGATIVE); KETONES,URINE NEGATIVE (NEGATIVE); NITRITE,URINE NEGATIVE (NEGATIVE); PH,URINE 5 (4.5-8.0); PROTEIN,URINE 3+ (NEGATIVE); UROBILINOGEN,URINE NORMAL MG/DL (0.0-1.0)
[2019-10-02 00:47] LABS: ANION GAP 11 mmol/L (5-15); BLOOD UREA NITROGEN 12 mg/dL (7-18); CALCIUM 8.3 MG/DL (8.5-10.1); CARBON DIOXIDE 26 MMOL/L (21-32); CHLORIDE 105 MMOL/L (98-107); CREATININE 0.7 MG/DL (0.55-1.30); POTASSIUM 3.5 MMOL/L (3.5-5.1); SODIUM 142 MMOL/L (136-145)
[2019-10-02 00:49] LABS: LEUKOCYTE ESTERASE ,URINE 1+ (NEGATIVE)
[2019-10-02 00:51] LABS: ALANINE AMINOTRANSFERASE 31 U/L (12-78); ALBUMIN 3.4 G/DL (3.4-5.0); ALBUMIN/GLOBULIN RATIO 0.8 (1.0-2.7); ALKALINE PHOSPHATASE 92 U/L (46-116); ASPARTATE AMINO TRANSFERASE 14 U/L (15-37); BILIRUBIN,TOTAL 0.1 MG/DL (0.2-1.0)
[2019-10-02] MEDS ORDERED: ZOFRAN4 MG ORAL (01:07)
[2019-10-02] MEDS ORDERED: MACROBID100 MG ORAL (01:07)
[2019-10-02 01:15] VITALS: BP 141/83
--- NOTE | 2019-10-02 01:15 | NUR ---
ER DISCHARGE NOTE: Patient is cleared to be discharged per ERMD, pt is aox4, on room air, with stable vital signs. accompanied by family member. pt was given dc and prescription instructions, pt was able to verbalize understanding, pt id band and iv site removed without complications. pt is able to ambulate with steady gait. pt took all belongings.
== END 2019-10-02 01:15 | disposition home or self-care (01) ==
LOC: EMR 10-02 00:19
DX: R11.2 Nausea with vomiting, unspecified (principal); R19.7 Diarrhea, unspecified; R10.84 Generalized abdominal pain; N30.00 Acute cystitis without hematuria; I10 Essential (primary) hypertension; E11.9 Type 2 diabetes mellitus without complications; E78.5 Hyperlipidemia, unspecified
CPT/HCPCS: 36415; 80053; 81003; 81025; 83690; 85025; 87086; 96361; 96374; J2405; J7030; Z7502; 99284

== ENCOUNTER 2020-06-21 19:36 | Emergency (ER) | payer MEDICAID ==
[~2020-06-21] VITALS: Ht 162.6 cm; Wt 127.0 kg
[~2020-06-21 19:36] MED LIST changes: +MACROBID100 MG ORAL; +ZOFRAN4 MG ORAL
[2020-06-21 19:45] VITALS: BP 177/103
--- NOTE | 2020-06-21 19:55 | Emergency Room Report ---
History of Present Illness General Chief Complaint: Pain Source: Patient Present Illness HPI 40-year-old female presents with left knee pain for 1.5 weeks worsened with movement relieved with rest rated as moderate, intermittent no trauma patient presents for evaluation treatment Allergies: Coded Allergies: No Known Allergies (Verified Allergy, Unknown, 04/10/07) COVID-19 Screening Contact w/high risk pt: No Experienced COVID-19 symptoms?: No COVID-19 Testing performed MUSTANGER: No Patient History Past Medical History: see triage record Last Menstrual Period: n/a Now: No Reviewed Nursing Documentation: PMH: Agreed; PSxH: Agreed Nursing Documentation-PMH Hx Cardiac Problems: Yes - Hyperlipidimia, Cardiac cath ablation 2016. Hx Hypertension: Yes Hx Pacemaker: No Hx COPD: No Hx Diabetes: Yes Hx Cancer: No Hx Gastrointestinal Problems: No Hx Dialysis: No Hx Neurological Problems: No Hx Cerebrovascular Accident: No Hx Seizures: No Review of Systems All Other Systems: negative except mentioned in HPI Physical Exam Vital Signs Date Time Temp Pulse Resp B/P (MAP) Pulse Ox O2 Delivery O2 Flow Rate FiO2 06/21/20 19:39 98.2 93 18 177/103 (127) 95 Room Air General Appearance: well appearing, no apparent distress Head: normocephalic, atraumatic ENT: hearing grossly normal, normal voice Neck: full range of motion, supple Respiratory: no respiratory distress, speaking full sentences Musculoskeletal: other - Left lower extremity: Anterior posterior drawer negative the knee, valgus varus stress negative, patient with slight tenderness to palpation anterior knee Neurologic: alert, normal gait Psychiatric: mood/affect normal Skin: no rash Medical Decision Making Diagnostic Impression: Primary Impression: Knee pain, left Qualified Codes: M25.562 - Pain in left knee ER Course 40-year-old female presents with left knee pain differential diagnosis includes knee pain knee strain, fracture, dislocation Patient most likely with knee strain, patient given Toradol, lidocaine patch, Tylenol with significant improvement pain will provide patient with a cane Patient opted out of test aware of the risks and benefits of radiation and medications that can be iatrogenic to an unborn child. Patient counseled about weight loss, Mediterranean diet No evidence of fracture disposition home with return precautions follow-up with PCP and orthopedics Other X-Ray Diagnostic Results Other X-Ray Diagnostic Results : X-Ray ordered: Left knee # of Views/Limited Vs Complete: 4 View Indication: Pain EP Interpretation: Yes Interpretation: no dislocation, no fractures Impression: No acute disease Electronically Signed by: Nasir Argueta MD Last Vital Signs Date Time Temp Pulse Resp B/P (MAP) Pulse Ox O2 Delivery O2 Flow Rate FiO2 06/21/20 19:45 98.2 89 18 177/103 95 Room Air Disposition: HOME, SELF-CARE Condition: Stable Scripts Lidocaine Patch* (Lidoderm Patch*) 1 Each Adh..patch 1 PATCH TOPIC DAILY, #7 PATCH 0 Refills Patch(es) may remain in place for up to 12 hours in any 24-hour period. Prov: Nasir Argueta MD 06/21/20 Ibuprofen* (MOTRIN*) 600 Mg Tablet 600 MG ORAL Q8H PRN for FOR PAIN, #30 TAB 0 Refills Prov: Nasir Argueta MD 06/21/20 Referrals: [facility] Patient Instructions: Knee Pain, [id number] Additional Instructions: The patient was provided with discharge instructions, notified to follow-up with a primary care doctor and or specialist in the next 24-48 hours, and to return to the ED if they have worsening of their symptoms. Please note that this report is being documented using [employer] technology. This can lead to erroneous entry secondary to incorrect interpretation by the dictating instrument. Nasir Argueta MD Jun 21, 2020 19:55
[2020-06-21] MEDS ORDERED: Acetaminophen 500mg (ES) tab ORAL ONE (20:00)
[2020-06-21] MEDS ORDERED: Ketorolac 30mg Inj IM ONE (20:00)
[2020-06-21] MEDS ORDERED: IBUPROFEN600 M1 ORAL (20:17)
[2020-06-21] MEDS ORDERED: LIDODERM700 M1 TOPIC (20:17)
[2020-06-21 20:25] VITALS: BP 166/9
--- NOTE | 2020-06-22 12:49 | Diagnostic Imaging Report ---
Indication: Knee pain Technique: 4 views of the left knee Comparison: 11/07/2014 Findings: No acute fractures or dislocation is identified. There are very mild degenerative changes with small marginal osteophytes. No suprapatellar joint effusion. No radiopaque foreign body. Impression: No acute fracture or dislocation.
== END 2020-06-21 20:25 | disposition home or self-care (01) ==
LOC: EMR 20:01
DX: M25.562 Pain in left knee (principal); E78.5 Hyperlipidemia, unspecified; I10 Essential (primary) hypertension; E11.9 Type 2 diabetes mellitus without complications
CPT/HCPCS: 73562; 96372; J1885; Z7502; 99283